=== PATIENT | male | born 1970 | race Caucasian/White ===

== ENCOUNTER → 2016-11-13 | Outpatient (CLI) | payer OTHER ==
[~2016-11-13] MED LIST: CRS/10 PO; CYCL10TA6 PO; HYDR-4079 PO; IBUP1CAP9 PO; OXYC1TAB3 PO; PHEN-712 PO; TIZA4CAP PO; TYLOTC500 PO
--- NOTE | 2016-11-14 06:38 | PAP/PSG TECHNICIAN REPORT ---
[facility] Underwriting Manager Polysomnogram Report Study name: None Report date: 11/14/2016 Study date: 11/13/2016 Referring Physician: KORY HALL PA-C Name: CHILANGO SCHULER Interpreting Physician: Etienne Arciniega D.O. Date of : 1970 Underwriting Manager: Aaron Caro [facility]. Sex: Male Age: 45 StudyType: PSG Weight: 339 lbs Height: 45 years, Height 6' 4" BMI: 41.26 Medications: CRESTOR 10 MG Patient History PATIENT HAD A SLEEP STUDY DONE MANY YEARS AGO BUT SAID HE WAS NOT POSITIVE AT THAT TIME. HE DOES HAVE HISTORY OF FATIGUE AND SNORING. ALSO, HISTORY OF WEIGHT GAIN. HE IS HERE TODAY FOR AN EVALUATION OF CARMEN. ESS = 14 RM 8 Parameters Monitored NPSG: E1-M2, E2-M1, Fp1-M2, Fp2-M1, F3-M2, F4-M2, F4-M1, C3-M2, C4-M2, C4-M1, O1-M2, O2-M2, O2-M1, T3-M2, T4-M1, P3-M2, P4-M1, CHIN1, CHIN2, HR, EKG, Legs, PFLOW, SNOR, FLOW, CFLOW, Tidal Volume, THOR, ABDO, SpO2, PLTH, CPRESS, ETCO2 Wave, ETCO2, pH Sleep Architecture Sleep Stages Time at Lights Off 9:59:58 PM STAGES Time (min.) TST (%) Time at Lights On 5:28:28 AM Wake 208.0 -- Total Recording Time (TRT) 449.00 min. N1 13.0 5 Total Sleep Period (TSP) 269.5 min. N2 139.5 58 Total Sleep Time (TST) 240.5min. N3 55.0 23 Awake Time 208.0 min. REM 33.0 14 Wake after Sleep Onset 29.0 min. Sleep Efficiency (SE) 54 % Sleep Onset Latency (MICHEL) 179.0 min. Number of Stage 1 Shifts None Awakenings 14 Stage Changes 61 Number of REM periods 6 REM 33.0 14 REM Latency 106.5 min. NREM 207.5 86 Body Position Analysis Supine Right Left Side Prone Vertical Total Sleep Time (min.) 235.8 35.0 147.2 182.23 0.0 0.0 Total Sleep Time (%) 24% 15% 61% 76 0% N/A% Total Sleep Time REM (min.) 0.0 0.0 33.0 None 0.0 0.0 Total Sleep Time NREM (min.) 58.3 35.0 114.2 None 0.0 0.0 Intermittent Wake (min.) 177.6 9.0 21.4 None 0.0 0.0 Total Sleep Period (%) 24% None None None None None Arousals Myoclonus (PLM) * Events Count Index Events Count Index Spontaneous 23 6 Events Awake (PLMW) 13 3.8 Respiratory 19 4.7 Events Asleep w/ Arousal (PLMA) 23 5.7 PLM 23 6 Events Asleep w/o Arousal (PLMS) 78 19.5 Snoring 9 2 Total Asleep 101 25.2 Total 74 18 Total 114 15 Respiratory Analysis * CA OA MA CH H RERA Total Count 0 0 0 0 43 7 43 Index 0.0 0.0 0.0 0 10.7 2 12.5 Mean Duration 0.0 0.0 0.0 0.00 24.1 16.5 23.0 Longest Duration 0.0 0.0 0.0 0.00 0.0 22.5 54.9 Respiratory Event Summary Total Supine ~Supine Right Left Prone REM NREM Apneas Count 0 0 0 0 0 N/A 0 0 Index 0.0 0 0 0.0 0.0 N/A 0 0 Hypopneas (4% Desat) Count 43 16 27 2 25 N/A 15 28 Index 10.7 16.5 9 3.4 10.2 N/A 27.3 8.1 Apneas & All Hypopneas Count 43 16 27 2 25 N/A 15 28 Index 10.7 16 9 3 10 N/A 27.3 8.1 Respiratory Events (Quality Control Representative+All Hyp+RERA) Count 43 22 28 3 25 N/A 15 28 Index 12.5 23 9 5.1 10.2 N/A 27.3 10.1 Respiratory Related Arousal Count 19 22 6 2 4 N/A 1 18 Index 4.7 13 2 3 2 N/A 2 5 Snoring Analysis Supine Right Left Prone REM NREM Total Snore duration 19.3 min Snores count 277 173 616 N/A 17 1,049 1,066 Snore mean duration 1.1 Sec Snores index 285 297 251 N/A 30.9 303.3 265.9 TST with snoring (%) 8.0% Desaturation Event Summary: Minimum %SpO2 Event Count Mean/Min/Max Duration(sec.) Desaturation Index % Time In Bed > 90 37 31.4 / 9.0 / 75.8 5.4 93.4 86 - 90 2 35.8 / 13.5 / 58.1 4.5 6.1 81 - 85 0 N/A 0.0 0.5 76 - 80 1 25.3 / 25.3 / 25.3 351.2 0.0 71 - 75 0 N/A 0.0 0.0 66 - 70 0 N/A 0.0 0.0 61 - 65 0 N/A 0.0 0.0 56 - 60 0 N/A 0.0 0.0 51 - 55 0 N/A 0.0 0.0 < 50 0 N/A 0.0 0.0 Total REM NREM Awake <50% 0.0 min. 0.0 min. 0.0 min. 0.0 min. 51 - 60% 0.0 min. 0.0 min. 0.0 min. 0.0 min. 61 - 70% 0.0 min. 0.0 min. 0.0 min. 0.0 min. 71 - 80% 0.2 min. 0.0 min. 0.2 min. 0.0 min. 81 - 90% 28.6 min. 9.8 min. 16.4 min. 2.4 min. 91 - 100% 407.7 min. 23.2 min. 187.4 min. 197.1 min. Average 93 92 93 95 Minimum SpO2 80 85 80 88 Desaturation Event Index 5.5 27.3 7.5 0.0 # Desat. Events below 89% 11 9 2 N/A Time(%) with Saturation below 89% 2.6 0.8 1.7 0.1 Time(min.) with Saturation below 89% 11.3 3.4 7.5 0.4 Time (mins) REM (mins) NREM (mins) % of TST SpO2 Below 90% 22 14 N8 7.6 SpO2 Below 88% 8 0 0 3 Heart Rate Analysis Min (bpm) Max (bpm) Average (bpm) Awake 58 112 89 NREM 51 94 71 REM 58 84 68 Overall 51 94 71 Supplemental O2 Values Minimum O2 level: None Value Start Time End Time Underwriting Manager Comments Mr. Schuler slept in the right, left and supine positions. No cardiac arrhythmia noted. Leg movements noted. No bruxism noted. Snoring was noted and scored as a 4 on a scale of 1 through 5. (0=no snoring, 5=snoring loud enough to be heard through a closed door or down the [address]) Mr. Schuler awoke to use the restroom 1 time during the night. Mr. Schuler stated I did not sleep as well as I do when I am in my own bed. The final report will be interpreted and signed by a sleep physician. The completed physician report will then be placed in the patient medical record. Therapy (cm H2O) 0 TIB (min.) 448.5 TST (min.) 240.5 Sleep Onset (min.) 179.0 REM Onset From Sleep (min.) 106.5 Sleep Efficiency % 54 Wakefulness (%) 46 Wakefulness (min.) 208.0 NREM 1 (%) 5 NREM 1 (min.) 13.0 NREM 2 (%) 58 NREM 2 (min.) 139.5 NREM 3 (%) 23 NREM 3 (min.) 55.0 REM (%) 14 REM (min.) 33.0 # Arousals 74 Arousal Index 18 # Snore 1,066 Snore Index 265.9 AHI 10.7 AHI Supine 16 AHI Non-Supine 9 NREM AHI 8.1 REM AHI 27.3 RDI 12.5 # Obstructive Apnea 0 # Central Apnea 0 # Mixed Apnea 0 # Hypopneas 43 RERAs 7 Total Respiratory Events 51 Time Below SpO2 89% (min.) 10.9 Mean NREM SpO2 (%) 93 Mean REM SpO2 (%) 92 Mean Sleep SpO2 (%) 93 Min NREM SpO2 (%) 80 Min REM SpO2 (%) 85 Position Supine (min.) 235.8 Position Non-supine (min.) 182.2 LM Index Sleep 25.2 LM Index NREM 27.2 LM Index REM 12.7 Mean Heart Rate (bpm) 71 Min Heart Rate (bpm) 51
--- NOTE | 2016-11-16 07:59 | POLYSOMNOGRAPH REPORT ---
REFERRED BY: Irma Michelle PA-C, who is with [facility] in [place]. CLINICAL DATA: The patient is a 45-year-old male with a BMI elevated at 41.26. He is referred by Irma Michelle PA-C. He has complaints of snoring, disturbed nocturnal sleep, fatigue, and excessive daytime somnolence. The [place] sleepiness score was 14 out of a possible 24. He previously had a sleep study done elsewhere which was reportedly negative. It is unknown how long ago that study was. This is an in-lab diagnostic polysomnography. SLEEP ARCHITECTURE: The total sleep period was 269.5 minutes. The total sleep time was 240.5 minutes. The sleep efficiency was severely reduced to 54%. This was mainly related to a severely prolonged sleep onset latency of 179.0 minutes. REM latency was 106.5 minutes. Wake after sleep onset was 29 minutes. Sleep consisted of stage N1 5%, stage N2 58%, stage N3 23%, stage REM 14%. AROUSAL DATA: The patient had a total of 74 arousals including 23 spontaneous arousals, 19 respiratory arousals, 23 periodic limb movement arousals, and 9 snoring arousals. The arousal index was 18 events per hour. PLM DATA: The patient had a total of 101 periodic limb movements of sleep for a PLM index of 25.2. There were 23 arousals associated with limb movements for a PLM arousal index of 5.7. EKG: The underlying cardiac rhythm was normal sinus. The cardiac rates ranged from 51-94 beats per minute with an average of 71 beats per minute. No cardiac arrhythmia was noted. RESPIRATORY DATA: The patient had a total of 43 respiratory events, all of which were hypopneas. The hypopneas were scored by the 4% desaturation rule. There were no apneas. The apnea hypopnea index was mildly elevated at 10.7 events per hour. This would reflect mild sleep apnea. He also had 7 RERAs. OXIMETRY DATA: The average saturation was 93%. The minimum saturation was 80%. There was a total of 8 minutes with saturations less than 88%. HOT DIE PICKER'S HOT DIE PICKER COMMENTS: The patient slept in the right, left, and supine positions. Leg movements were noted. Snoring was noted and scored as a 4 on a scale of 1 through 5. The patient awakened to use the restroom one time during the night. IMPRESSION: 1. Obstructive sleep apnea -- mild. 2. Periodic limb movement disorder. COMMENTS: The patient had severe difficulty initiating sleep. It took him almost 3 hours to fall asleep. He had mild sleep apnea as assessed by an apnea hypopnea index of 10.7. All the events were hypopneas. It is difficult to determine if his complaints of excessive daytime somnolence and fatigue are secondary to the mild sleep apnea or not. He did have some relatively transient oxygen desaturations. He had a modest number of limb movements. RECOMMENDATIONS: 1. Consideration could be given to a trial of nasal CPAP. This could be done by ordering auto CPAP. Alternatively, he could be referred back for an in-lab CPAP titration study. In light of the fact he had such difficulty initiating sleep while in the sleep lab, the auto CPAP might be the preferred approach. 2. The patient has an elevation of body mass index of 41.26. In light of this a weight-reduction program is strongly advised. 3. The patient should be advised to avoid sleeping in the supine position. Typically one has more snoring and respiratory events in the supine position. 4. The patient should be advised of the appropriate principles of sleep hygiene with particular emphasis on allowing sufficient sleep time of approximately 8 hours per night and having a fairly regular sleep-wake schedule. ALYSSAD
== END ==
LOC: C.NEUR 21:00
PROVIDERS: ATTEND Family Medicine
DX: R06.83 Snoring (principal); G47.20 Circadian rhythm sleep disorder, unspecified type; E66.01 Morbid (severe) obesity due to excess calories

== ENCOUNTER 2016-11-17 16:53 | Emergency (ER) | payer OTHER ==
[~2016-11-17] VITALS: Ht 190.5 cm; Wt 154.0 kg
[~2016-11-17 16:53] MED LIST changes: -CRS/10 PO; -CYCL10TA6 PO; -OXYC1TAB3 PO; -PHEN-712 PO
[2016-11-17 16:58] VITALS: Ht 190.5 cm; Wt 154.0 kg
[2016-11-17] MEDS ORDERED: OXYCODONE HCL IR 5 MG TAB (IMMEDIATE RELEASE) PO STA (17:48)
[2016-11-17] MEDS ORDERED: CRS/10 PO (18:16)
[2016-11-17] MEDS ORDERED: PHEN-712 PO (18:17)
--- NOTE | 2016-11-17 19:21 | DIAGNOSTIC IMAGING REPORT ---
PELVIS 1 OR 2 VIEW ROUTINE CLINICAL HISTORY: RIGHT hip pain. Fall. COMPARISON STUDY: Pelvis 03/06/2015. FINDINGS: Cortical plates and screws within the left acetabulum. The hardware appears intact. No acute fracture or dislocation within the pelvis or hips. There is moderate to severe right and mild to moderate left hip osteoarthritis. The sacrum appears intact. IMPRESSION: 1. No acute fracture or dislocation within the pelvis or hips. 2. Right greater than left hip osteoarthritis. Electronically signed by: Isai Adorno M.D. 11/17/2016 7:20 PM Dictated Date/Time: 11/17/2016 7:19 PM
--- NOTE | 2016-11-17 19:24 | DIAGNOSTIC IMAGING REPORT ---
LEFT FEMUR 2 VIEWS ROUTINE, RIGHT FEMUR 2 VIEWS ROUTINE CLINICAL HISTORY: pain s/p fall. Bilateral leg pain. COMPARISON STUDY: None. FINDINGS: Cortical plate and screws within the left acetabulum. The hardware appears intact. Moderate to severe right and easq-wd-lkpujjsf left hip osteoarthritis. Soft tissues are unremarkable. No acute fracture dislocation within the right femur. Small focal area of cortical thickening within the mid shaft of the left femur medially. IMPRESSION: 1. No acute fracture or dislocation within the right femur. 2. Small focal area of cortical thickening within the mid shaft of the left femur medially. This may be related to chronic traction from a muscle attachment. A developing stress fracture could also have a similar appearance if the patient has had long-standing left femur pain. This can be confirmed with follow-up nonemergent left femur MRI. Electronically signed by: Isai Adorno M.D. 11/17/2016 7:23 PM Dictated Date/Time: 11/17/2016 7:20 PM
--- NOTE | 2016-11-17 19:24 | DIAGNOSTIC IMAGING REPORT ---
LEFT FEMUR 2 VIEWS ROUTINE, RIGHT FEMUR 2 VIEWS ROUTINE CLINICAL HISTORY: pain s/p fall. Bilateral leg pain. COMPARISON STUDY: None. FINDINGS: Cortical plate and screws within the left acetabulum. The hardware appears intact. Moderate to severe right and igte-jr-adtjuuoj left hip osteoarthritis. Soft tissues are unremarkable. No acute fracture dislocation within the right femur. Small focal area of cortical thickening within the mid shaft of the left femur medially. IMPRESSION: 1. No acute fracture or dislocation within the right femur. 2. Small focal area of cortical thickening within the mid shaft of the left femur medially. This may be related to chronic traction from a muscle attachment. A developing stress fracture could also have a similar appearance if the patient has had long-standing left femur pain. This can be confirmed with follow-up nonemergent left femur MRI. Electronically signed by: Isai Adorno M.D. 11/17/2016 7:23 PM Dictated Date/Time: 11/17/2016 7:20 PM
--- NOTE | 2016-11-17 19:26 | DIAGNOSTIC IMAGING REPORT ---
LUMBAR SPINE 5 VIEWS HISTORY: Back pain. Fall. tailbone pain COMPARISON: Lumbar spine 11/12/2015. FINDINGS: There is no fracture. Mild disc space at L5-S1. Alignment is intact. Bilateral L5 spondylolysis is again noted. IMPRESSION: No fracture or subluxation within the lumbar spine. Electronically signed by: Isai Adorno M.D. 11/17/2016 7:25 PM Dictated Date/Time: 11/17/2016 7:23 PM
[2016-11-17] MEDS ORDERED: FLEXERIL HOME PACK 10 MG VIAL PO ONE (19:45)
[2016-11-17] MEDS ORDERED: OXYCODONE IR HOME PACK PO ONE (19:45)
[2016-11-17] MEDS ORDERED: OXYC1TAB3 PO (19:52)
[2016-11-17] MEDS ORDERED: CYCL10TA6 PO (19:52)
--- NOTE | 2016-11-17 19:54 | EMERGENCY ROOM VISIT NOTE ---
History First contact with patient: 17:36 Chief Complaint: BACK PAIN Stated Complaint: TAILBONE AND LOWER BACK PAIN History of Present Illness The patient is a 46 year old male who presents to the Emergency Department by private vehicle for evaluation of his ongoing tailbone pain. The patient reports that on Monday morning well going outside, he slipped and fell in the snow. He is uncertain how he landed. He did not lose consciousness. The patient reports that he immediately did not have pain, but has now developed increasing pain in his tailbone area. He reports pain with changes in position. He rates his current discomfort as an 8/10. The patient denies any numbness or tingling into the distal extremity's. He denies any loss of control bowel/bladder saddle anesthesia. The patient does have a history of disc issues and his back and cervical spine. He had an MRI performed in October and is waiting for surgical consultation through [facility]. He reports no worsening radicular symptoms at this point. The patient has tried over-the- counter medications with minimally symptoms. He denies any fevers, chills, abdominal pain, acute, melena, hematuria, or dysuria. Patient does report a history of osteoarthritis of the RIGHT hip and surgical intervention for an acetabular fracture to the LEFT hip. Review of Systems A complete 10-point Review of Systems was discussed with the patient, with pertinent positives and negatives listed in the History of Present Illness. All remaining Review of Systems questions can be considered negative unless otherwise specified. Past Medical/Surgical History Medical Problems: (1) Bursitis Nec (2) Fx Phalanx, Hand Nos-Opn (3) Pin placement in L middle finger Family History Diabetes mellitus FHx: cancer FHx: gallbladder disease FHx: heart disease Hypertension Social History Smoking Status: Current Every Day Smoker Smokeless Tobacco Use: No Alcohol Use: heavy Drug Use: none Marital Status: Housing Status: lives with family Occupation Status: employed Current/Historical Medications Scheduled Cyclobenzaprine Hcl (Flexeril), 10 MG PO TID Rosuvastatin Calcium (Crestor), 10 MG PO QAM Scheduled PRN Acetaminophen (Tylenol), 1,500 MG PO for Pain or Fever Oxycodone Ir (Roxicodone Ir), 1-2 TAB PO Q4H PRN for Pain Psuzrwavxxykb-Qo-IQ W/ APAP (Cold & Flu Severe Daytime 5-72-249-325 mg), 1 TAB PO DIRECTED PRN for Cough Allergies Coded Allergies: No Known Allergies (Unverified , 11/17/16) Physical Exam Vital Signs Date Time Temp Pulse Resp B/P Pulse Ox O2 Delivery O2 Flow Rate FiO2 11/17/16 20:00 37.2 88 18 138/102 97 11/17/16 19:39 88 18 138/102 97 Room Air 11/17/16 16:58 37.2 96 18 150/84 97 Room Air Pain Rating (0-10): 8 Physical Exam VITAL SIGNS - Vital signs and nursing notes were reviewed. GENERAL - 46-year-old male appearing his stated age and in noticeable discomfort throughout the exam. ABDOMEN - Abdominal contour obese without pulsations or visible masses. BS normoactive all four quadrants. No tenderness, palpable masses, hepatosplenomegaly, or ascites noted. MUSCULOSKELETAL - ROM of the lumbar spine region was limited secondary to patient discomfort. Pt was seated on the exam table. Pt made guarded movements when asked to change position. No step-off deformities were palpated down the thoracolumbar spines. Moderate Tenderness to Palpation experienced at the level of the lower lumbar spine and paraspinal muscle distribution. No reproducible tenderness to palpation across the iliac spine. NEUROLOGIC - REFLEXES: +3/4 patellar reflexes B/L. SENSORY: Spinothalamic tract was found to be intact with ability to discriminate sharp versus dull sensation at the level of hip joint down do the great toe. No sensory defects of the dorsal column were appreciated utilizing light touch for evaluation. CEREBELLAR: Pt to perform rapid alternating movements of the feet. EXTREMITIES - Range of Motion - No tremors, ticks, or fasciculations of the lower extremities noticed during inspection. FROM of the lower extremities. No clonus noted with PROM of the lower extremities bilaterally. Pt had +5/5 strength appreciated bilaterally in the lower extremities against examiner's resistance. VASCULAR - Capillary refill of the great toe was brisk. No mottling or blanching of the extremities present. +3/5 dorsalis pedis pulses palpated bilaterally. Medical Decision & Procedures ER Provider Diagnostic Interpretation: Radiological imaging and reports were reviewed by myself. Radiologist's Interpretation as follows: LEFT FEMUR 2 VIEWS ROUTINE, RIGHT FEMUR 2 VIEWS ROUTINE CLINICAL HISTORY: pain s/p fall. Bilateral leg pain. COMPARISON STUDY: None. FINDINGS: Cortical plate and screws within the left acetabulum. The hardware appears intact. Moderate to severe right and opvx-ui-fqnbivmd left hip osteoarthritis. Soft tissues are unremarkable. No acute fracture dislocation within the right femur. Small focal area of cortical thickening within the mid shaft of the left femur medially. IMPRESSION: 1. No acute fracture or dislocation within the right femur. 2. Small focal area of cortical thickening within the mid shaft of the left femur medially. This may be related to chronic traction from a muscle attachment. A developing stress fracture could also have a similar appearance if the patient has had long-standing left femur pain. This can be confirmed with follow-up nonemergent left femur MRI. LUMBAR SPINE 5 VIEWS HISTORY: Back pain. Fall. tailbone pain COMPARISON: Lumbar spine 11/12/2015. FINDINGS: There is no fracture. Mild disc space at L5-S1. Alignment is intact. Bilateral L5 spondylolysis is again noted. IMPRESSION: No fracture or subluxation within the lumbar spine. PELVIS 1 OR 2 VIEW ROUTINE CLINICAL HISTORY: RIGHT hip pain. Fall. COMPARISON STUDY: Pelvis 03/06/2015. FINDINGS: Cortical plates and screws within the left acetabulum. The hardware appears intact. No acute fracture or dislocation within the pelvis or hips. There is moderate to severe right and mild to moderate left hip osteoarthritis. The sacrum appears intact. IMPRESSION: 1. No acute fracture or dislocation within the pelvis or hips. 2. Right greater than left hip osteoarthritis. Medications Administered Medications (Trade) Dose Ordered Sig/Anshul Route Start Time Stop Time Status Last Admin Dose Admin Oxycodone HCl (Roxicodone Immediate Rel Tab) 5 mg NOW STAT PO 11/17/16 17:48 11/17/16 17:50 DC 11/17/16 18:13 5 MG Oxycodone HCl (Roxicodone Immediate Rel 5MG Home Pack) 1 homepack UD ONCE PO 11/17/16 19:45 11/17/16 19:46 DC 11/17/16 19:59 1 HOMEPACK Cyclobenzaprine HCl (FLEXERIL 10MG Home Pack) 1 homepack UD ONCE PO 11/17/16 19:45 11/17/16 19:46 DC 11/17/16 19:59 1 HOMEPACK ED Course Patient was seen and evaluated by myself. The patient was provided one OxyIR for pain. X-ray of the lumbar spines, pelvis, and femurs were obtained. Imaging results as above. Imaging results were reviewed with the patient who acknowledges understanding. The patient was educated on following up with his surgeons from today's visit. He was educated on worrisome symptoms for return visit to the emergency department. Patient discharged home in good condition. Medical Decision Given the patient's presentation and exam findings, I did elect to perform the above-mentioned workup. The patient presents today with tailbone pain and low back pain after sustaining a fall on the ice. He has no radicular symptoms. He has strong reflexes bilaterally. His exam is otherwise unremarkable. His pain was adequately controlled in the emergency department. The patient will follow-up with his specialists from today's visit. He will return for any changing or worsening symptoms. Patient discharged home in good condition. In the evaluation and treatment of this patient the following differential diagnoses were considered: Cauda equina syndrome, discitis, HNP, sciatica, epidural abscess, psoas abscess, musculoskeletal strain, lumbar fracture, lumbar dislocation, lumbar subluxation, spondylolisthesis, spondylosis, or compression fracture. Impression Primary Impression: Lumbar contusion Additional Impression: Fall due to ice or snow Departure Information Dispostion Home / Self-Care Condition GOOD Prescriptions Cyclobenzaprine Hcl (FLEXERIL) 10 Mg Tab 10 MG PO TID for 7 Days, #21 TAB Prov: Zia Chance PA-C 11/17/16 Oxycodone Ir (Roxicodone Ir) 5 Mg Tab 1-2 TAB PO Q4H Y for Pain, #20 TAB For Initial Treatment Prov: Zia Chance PA-C 11/17/16 Referrals Irma Reyes PA-C (PCP) Patient Instructions [facility] Additional Instructions You have been treated in the Emergency Department for Back Pain. You have received pain medicine in the emergency department which impairs your ability to operate a vehicle. It is illegal for you to drive after receiving these medicines. You have been prescribed OxyIR to be used for pain control. This is a narcotic medication. You cannot drive or consume alcohol while on this medicine. This medicine should only be used for pain that cannot be controlled with over-the- counter pain medicines. You have been prescribed Flexeril (cyclobenzaprine) 1-2 tabs orally, three times per day. Do NOT exceed 30 mg (6 tabs) per day. Take your first dose at bedtime as it can make you drowsy. Always take all medications as prescribed. For pain control, you can use the following shhr-ccp-bgrmdwb medicines (if >12 yo): - Regular strength (325mg/tab) Tylenol (acetaminophen) 2 tabs every 4-6 hours as needed. Do not exceed 12 tablets in a 24 hour period. Avoid taking more than 4 grams (4000 mg) of Tylenol per day. This includes any other sources of acetaminophen you may take on a regular basis. - Regular strength (200 mg/tab) Advil (ibuprofen) 1-2 tabs every 4-6 hours as needed. Do not exceed a dose of 3200 mg per day. If this is an acute injury, ice can be applied to the area of pain for the first 3 days to help decrease pain and inflammation. After the first 3 days, a heating pad can be used over the area for continued soothing relief. You should schedule a follow-up appointment in 2-3 days with your Primary Care Provider for further evaluation and treatment of your back pain. Return to the Emergency Department if your current symptoms worsen despite treatment course outlined above, or if you develop any of the following symptoms : intractable pain despite aforementioned treatment course, loss of control of your bowel or bladder, numbness or tingling in your groin, or development of a fever. Problem Qualifiers Primary Impression: Lumbar contusion Encounter type: initial encounter Qualified Codes: S30.0XXA - Contusion of lower back and pelvis, initial encounter Additional Impression: Fall due to ice or snow Encounter type: initial encounter Qualified Codes: W00.9XXA - Unspecified fall due to ice and snow, initial encounter
[2016-11-17 20:00] VITALS: BP 138/102; PULSE 88; TEMP 37.2; O2SAT 97
== END 2016-11-17 20:01 | disposition home or self-care (01) ==
LOC: C.EDB 16:54 → C.EDC 20:01
DX: S30.0XXA Contusion of lower back and pelvis, initial encounter (principal); W00.9XXA Unspecified fall due to ice and snow, initial encounter; F17.200 Nicotine dependence, unspecified, uncomplicated

== ENCOUNTER → 2017-12-06 | Outpatient (CLI) | payer OTHER ==
[~2017-12-06] MED LIST changes: +CRS/10 PO; -HYDR-4079 PO; -IBUP1CAP9 PO; +PHEN-712 PO; -TIZA4CAP PO
--- NOTE | 2017-12-06 14:23 | DIAGNOSTIC IMAGING REPORT ---
LUMBAR SPINE 7 VIEWS with flexion and extension HISTORY: LOWER BACK PAIN COMPARISON: Lumbar spine 11/17/2016. FINDINGS: There is no fracture. Mild dextroscoliosis. The sacrum is intact. Postoperative changes at the left acetabulum. Bilateral L5 spondylolysis with associated grade I spondylolisthesis. Mild disc space narrowing at L1-L2 and L2-L3 with endplate osteophytes. Moderate to space narrowing at L5-S1. 5 mm of anterolisthesis of L5 on S1. Moderate facet degenerative changes within the lower lumbar spine. The alignment remains unchanged throughout flexion and extension. IMPRESSION: 1. No fractures within the lumbar spine. 2. Gguo-ry-xgyvprhn degenerative changes as described above. This is not significantly changed. 3. Bilateral L5 spondylolysis with associated grade I anterolisthesis. Alignment remains unchanged throughout flexion and extension. Electronically signed by: Isai Adorno M.D. 12/06/2017 2:21 PM Dictated Date/Time: 12/06/2017 2:00 PM
== END | disposition home or self-care (01) ==
LOC: C.RAD 12:30
PROVIDERS: ATTEND Nurse Practitioner Family
DX: M47.26 Other spondylosis with radiculopathy, lumbar region (principal); M43.16 Spondylolisthesis, lumbar region

== ENCOUNTER 2019-01-01 04:52 | Inpatient (IN) ==
--- NOTE | 2018-12-05 08:26 | Anesthesiology Consultation ---
Date of Service December 05, 2018 Assessment & Plan (1) Encounter for pre-operative examination: Chart Review Chart Review: Acceptable Risk for Surgery and Patient seen in Pre Admission Testing Teaching & Discussion Instructed NPO after midnight before surgery, except medications with 15 cc of water. Medication instructions provided according to the PAT guidelines. History Surgery Operation Date: 01/01/19 10:40 Proposed Procedures p Right Total Hip Arthroplasty - Jaycob Bruce MD Height/Weight Height: 6 ft 4 in Weight: 155.2 kg Allergies Allergy/AdvReac Type Severity Reaction Status Date / Time No Known Allergies Allergy Unverified 11/30/18 08:02 Medications Home Medications Medication Instructions Recorded Confirmed Last Taken acetaminophen [Tylenol Extra 1 - 2 tab PO Q6H PRN 11/30/18 11/30/18 Unknown Strength] baclofen 20 mg PO BID 11/30/18 11/30/18 11/29/18 meloxicam 7.5 mg PO BID 11/30/18 11/30/18 11/29/18 pregabalin [Lyrica] 100 mg PO TID 11/30/18 11/30/18 11/29/18 ropinirole [Requip] 2 mg PO HS 11/30/18 11/30/18 11/29/18 rosuvastatin [Crestor] 20 mg PO HS 11/30/18 11/30/18 11/29/18 Past Medical History Medical History Acid reflux DIETARY CONTROLLED Degenerative disc disease High cholesterol Morbid obesity Osteoarthritis Restless leg syndrome Sleep apnea Noncompliant with CPAP Past Family History Family History Father Family history of non-Hodgkin's lymphoma Sister Family history of ovarian cancer Other Family history of testicular cancer Past Surgical History Surgical History History of hand surgery L/MIDDLE/3 PINS History of hip surgery L/PLATE & SCREWS History of testicular surgery A CHILD Past Anesthesia History No Hx of Anesthesia Complications and No Family Hx of Anesthesia Complications History of PONV No Motion Sickness Screening History of Motion Sickness: No Social History Smoking Status: Current every day smoker tobacco type: cigarettes Smoking cigarettes per day: 1-2 CIGS A DAY, TRYING TO QUIT - ADVISED NPO Do You Dip or Chew Tobacco: Yes (1-2 CHEWS A DAY - ADVISED NPO) Hx Alcohol Use: Yes Alcohol type: hard liquor alcohol intake frequency: a few times a week Hx Substance Use: No substance use type: does not use Exercise / Class Metabolic Activity III < 4 Walking/Shop/Light housework (Very limited by hip pain for the past month, SOB with ambulation 25+ feet 2/2 pain, no chest pain.) Review of Systems Pt denies any recent chest pain, shortness of breath, palpitations, cough, fever or URI. Physical Exam Vital Signs BP: 115/80 P: 76bpm SPO2: 95% RA T: 98.1 F R: 18 ENMT Mouth: no dental restorations, no chipped teeth and no loose teeth Thyromental Distance: > or= 3.5 Finger Breadths (3.5) Mallampati Class: III Mouth / Teeth: 1. missing Neck + thick neck and + facial hair (short goatee and stubble, pt amenable to shaving); neck extension not limited Respiratory normal respiratory effort Auscultation: lungs clear to auscultation bilaterally Cardiovascular Rate/Rhythm: regular rate and regular rhythm Heart Sounds: no murmur Extremities: no edema Testing Electrocardiogram Date: 12/05/18 Findings: + NSR @ (66) Chest X-Ray Date: 12/05/18 Findings: + NAD Laboratory Results 12/05/18 08:39 12/05/18 08:39 Blood Type A Positive 12/05/18 08:39 Antibody Screen NEGATIVE 12/05/18 08:39 PT 10.6 Seconds (9.0-12.0) 12/05/18 08:39 INR 1.0 (0.9-1.1) 12/05/18 08:39 APTT 28.8 Seconds (21.0-31.0) 12/05/18 08:39
--- NOTE | 2018-12-05 08:34 | PAT Medication Instructions ---
Medication Instructions Date of Service December 05, 2018 Home Medications acetaminophen [Tylenol Extra] 1 - 2 tab PO Q6H PRN baclofen 20 mg PO BID meloxicam 7.5 mg PO BID pregabalin [Lyrica] 100 mg PO TID ropinirole [Requip] 2 mg PO HS rosuvastatin [Crestor] 20 mg PO HS ASK your surgeon for instructions meloxicam 7.5 mg PO BID STOP taking 24 hours before surgery ropinirole [Requip] 2 mg PO HS DO NOT take the morning of surgery baclofen 20 mg PO BID Take morning of surgery With a small sip of water, OTHERWISE NOTHING TO EAT OR DRINK AFTER MIDNIGHT: acetaminophen [Tylenol Extra] 1 - 2 tab PO Q6H PRN (if needed, may be taken up to four hours before surgery) pregabalin [Lyrica] 100 mg PO TID Take evening before surgery acetaminophen [Tylenol Extra] 1 - 2 tab PO Q6H PRN (if needed) baclofen 20 mg PO BID pregabalin [Lyrica] 100 mg PO TID rosuvastatin [Crestor] 20 mg PO HS Other Notes If you have any questions please call us at [phone] or [phone] or [phone] or [phone]
--- NOTE | 2018-12-05 09:05 | XRay Report ---
TWO VIEW CHEST CLINICAL HISTORY: Preoperative examination. FINDINGS: PA and lateral chest radiographs are compared to chest x-ray and chest CT dated 03/06/2015. T he cardiomediastinal silhouette is unremarkable. The lungs and pleural spaces are clear. There is no pneumothorax. There are healed left-sided rib fractures. IMPRESSION: No active disease in the chest. Electronically signed by: Ender Leon M.D. 12/05/2018 9:04 AM
[2018-12-05 10:29] LABS: Basophils # (auto) 0.01 K/uL (0-0.2); Basophils % (auto) 0.2 %; Eosinophils % (auto) 1.8 %; Hematocrit (blood only) 45.3 % (42-52); Hemoglobin 15.8 g/dL (14.0-18.0); Immature Granulocytes # (auto) 0.01 K/uL (0.00-0.02); Immature Granulocytes % (auto) 0.2 %; Lymphocytes % (auto) 33.6 %; Mean Corpuscular Hgb Conc 34.9 g/dL (32-36); Mean Corpuscular Volume 89.5 fL (80-100); Mean Platelet Volume 10.1 fL (7.4-10.4); Monocytes # (auto) 0.47 K/uL (0.11-0.59); Monocytes % (auto) 8.3 %; Neutrophils # (auto) 3.16 K/uL (1.4-6.5); Neutrophils % (auto) 55.9 %; Platelet Count 177 K/uL (130-400); RDW Coefficient of Variation 13.6 % (11.5-14.5); RDW Standard Deviation 44.2 fL (36.4-46.3); Red Blood Count 5.06 M/uL (4.7-6.1); White Blood Count 5.65 K/uL (4.8-10.8)
[2018-12-05 10:41] LABS: Partial Thromboplastin Ratio 1.1; Partial Thromboplastin Time 28.8 Seconds (21.0-31.0); Prothrombin Time 10.6 Seconds (9.0-12.0)
[2018-12-05 10:45] LABS: BUN Creatinine Ratio 10.8 (10-20); Calcium 8.9 mg/dl (8.5-10.1); Creatinine Clr Calc Pharmacy 148.8 ml/min; Est GFR (African American) 105.2; Est GFR (Non-African American) 90.8; Potassium 4.1 mmol/L (3.5-5.1)
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
--- OUTSIDE RECORDS SUMMARY | 2019-01-01 04:55 | External Medical Summary | Continuity of Care Document ---
:1970 Author Name Inge Cameron, Provider Address Unavailable Unavailable , Care Team Providers Name Role Phone [facility] Nisha, Provider Unavailable [email or web address], UNKNOWN Unavailable Unavailable Problems Active medical history not documented Allergies and Adverse Reactions Allergy history not documented Medications Medications not documented Procedures Procedures not documented Immunizations Immunizations not documented Plan of Treatment Planned Observations Planned Goals not documented Results No Known Results Results not documented
[2019-01-01] MEDS ORDERED: CEFAZOLIN 3000MG 65 ML IV SCH (06:00)
[2019-01-01] MEDS ORDERED: LR 60ML/HR IV SCH (06:00)
[2019-01-01] MEDS ORDERED: FAMOTIDINE 20 MG TAB PO SCH (06:00)
[2019-01-01] MEDS ORDERED: LR 500ML BOLUS, THEN 15ML/HR IV SCH (06:00)
[2019-01-01] MEDS ORDERED: METOCLOPRAMIDE HCL 10 MG TABLET PO SCH (06:00)
[2019-01-01] MEDS ORDERED: GABAPENTIN 300 MG x 3 PO SCH (06:00)
[2019-01-01] MEDS ORDERED: SCOPOLAMINE 1.5 MG TDSY TD SCH (06:00)
[2019-01-01] MEDS ORDERED: TRANEXAMIC ACID 1,000 MG **IV Pre-op IV SCH (06:00)
[2019-01-01] MEDS ORDERED: ACETAMINOPHEN 500 MG TAB PO SCH (06:00)
[2019-01-01] MEDS ORDERED: BACITRACIN INJ 50,000 UNIT VIAL ONE (06:33)
[2019-01-01] MEDS ORDERED: BUPIVACAINE/EPINEPHRINE 0.5% MPF 1:200,000 30 ML VIAL ONE (06:33)
[2019-01-01] MEDS ORDERED: BUPIVACAINE 0.5 % 5 MG/1 ML PF 10ML VIAL ONE (06:36)
[2019-01-01] MEDS ORDERED: MIDAZOLAM HCL 1 MG/ML 2ML VIAL ONE (06:41)
[2019-01-01] MEDS ORDERED: MoRPHine SULFATE PF 1 MG/ML 10 ML AMP/VIAL ONE (06:41)
--- NOTE | 2019-01-01 06:50 | History & Physical Bridge Note ---
Date of Service January 01, 2019 History & Physical Bridge Note I have examined the patient, reviewed the History & Physical and in the interval since the performance of the History & Physical I have noted the following changes of clinical significance: no changes noted
[2019-01-01] MEDS ORDERED: NALOXONE HCL 1 MG in SODIUM CHLORIDE 0.9% 1000ML 1,000 ML IV PRN (06:52)
[2019-01-01] MEDS ORDERED: LACTATED RINGER'S 500 ML IV PRN (06:52)
[2019-01-01] MEDS ORDERED: DiphenhydrAMINE HCL 50 MG/ML VIAL IV PRN (06:52)
[2019-01-01] MEDS ORDERED: ePHEDrine sulfate 50 MG/ML AMP IV PRN (06:52)
[2019-01-01] MEDS ORDERED: NALOXONE HCL 0.4 MG/1 ML VIAL/CARP IV PRN ×2 (06:52→09:51)
[2019-01-01] MEDS ORDERED: HYDROmorphone INJ 0.5 MG/0.5 ML SYR IV PRN (06:52)
[2019-01-01] MEDS ORDERED: NALBUPHINE HCL INJ 10 MG/ML AMP IV PRN (06:52)
[2019-01-01] MEDS ORDERED: MoRPHine SULFATE 2 MG/ML CARP IV PRN (06:52)
[2019-01-01] MEDS ORDERED: MoRPHine SULFATE PF 1 MG/ML 10 ML AMP/VIAL INT SPINAL ONE (06:52)
[2019-01-01] MEDS ORDERED: ONDANSETRON INJ 2 MG/ML 2 ML VIAL IV PRN (06:52)
[2019-01-01] MEDS ORDERED: NALOXONE HCL 0.08 MG in SYRINGE 1.8 ML IV PRN (06:52)
[2019-01-01] MEDS ORDERED: DC INTRASPINAL MORPHINE SCH (07:00)
[2019-01-01] MEDS ORDERED: NO NARCOTICS OR SEDATIVES SCH (07:00)
[2019-01-01] MEDS ORDERED: SODIUM CHLORIDE 0.9% 1000ML 1,000 ML IV SCH (07:00)
[2019-01-01] MEDS ORDERED: PROPOFOL IV EMULSION 10 MG/ML 20 ML VIAL IV ONE (07:55)
[2019-01-01] MEDS ORDERED: LIDOCAINE HCL 2% 2 ML VIAL/AMP(20MG/ML) INFIL ONE (07:55)
--- NOTE | 2019-01-01 08:47 | Post Operative Brief Note ---
Immediate Post Op Note v1 Date of Surgery January 01, 2019 Pre & Post Diagnosis Operation Date: 01/01/19 07:00 Pre-Op Diagnosis: Right Hip Advanced Degenerative Joint Disease Post-Op Diagnosis: Right Hip Advanced Degenerative Joint Disease Procedure Operation Date: 01/01/19 07:00 Actual Procedures p Right Total Arthroplasty--Uncemented(Right) - Jaycob Bruce MD Surgeon Jaycob Bruce MD Gericare Aide Teacher Lemuel, PAC Estimated Blood Loss 300 Findings Consistent with Post-Op Diagnosis Fluids 1700 cc Specimens Right Femoral Head Drains Madrigal Catheter (A 16 Lithuanian madrigal catheter was inserted by ENEDINA Rowland, without difficulty, clear yellow urine obtained, output to be monitored by A nesthesia.) Anesthesia Type Spinal MAC Complications none Disposition Accompanied Patient To Recovery: Yes Disposition: Recovery Room
--- NOTE | 2019-01-01 09:20 | Anesthesiology Progress Note ---
Date of Service January 01, 2019 Anesthesia Post Procedure Vital Signs Vital Signs: Temp Pulse Pulse Resp BP Pulse Ox 01/01/19 09:15 36.0 C L 67 16 112/61 99 01/01/19 09:05 65 17 103/73 99 01/01/19 08:55 61 19 110/62 99 01/01/19 08:49 36.0 C L 74 14 98/59 L 97 01/01/19 05:35 36.5 C 61 20 127/76 95 Pain Intensity Right Hip: Pain Intensity: 7 Transfer of Care Handoff Completed per policy Notes Mental Status: alert / awake / arousable Patient Amnestic to Procedure: Yes Nausea / Vomiting: adequately controlled Pain: adequately controlled Airway Patency, RR, SpO2: stable & adequate BP & HR: stable & adequate Hydration State: stable & adequate Neuraxial Anesthesia: was administered and sensory block is resolving Anesthetic Complications: no major complications apparent and Pt Satisfied with anesthetic care
--- NOTE | 2019-01-01 09:45 | XRay Report ---
XR hip 1V RT w pelvis HISTORY: 48 years-old Male IN PACU - A/P PELVIS and LATERAL HIP right hip total joint arthroplasty COMPARISON: Pelvis and right hip radiographs 11/15/2018 TECHNIQUE: AP view of the pelvis with 2 views of the right hip FINDINGS: ] Total joint arthroplasty demonstrates satisfactory alignment. No acute fracture or retained foreign body identified. Lateral skin abdulkadir with expected postsurgical soft tissue swelling and deep tissu e air. Remote ORIF changes about the left hemipelvis. IMPRESSION: Right hip total joint arthroplasty demonstrates satisfactory alignment. The above report was generated using voice recognition software. It may contain grammatical, syntax o r spelling errors. Electronically signed by: Zachary Juarez M.D. 01/01/2019 9:44 AM
[2019-01-01] MEDS ORDERED: ALUMINUM/MAGNESIUM SUSP 30 ML UDC PO PRN (09:51)
[2019-01-01] MEDS ORDERED: MAGNESIUM HYDROXIDE SUSP 30 ML UDC PO PRN (09:51)
[2019-01-01] MEDS ORDERED: TAMSULOSIN HCL 0.4 MG CAP PO PRN (09:51)
[2019-01-01] MEDS ORDERED: BISACODYL 10 MG SUPP PR PRN (09:51)
[2019-01-01] MEDS: SODIUM CHLORIDE 0.9% 1000ML 1,000 ML IV SCH ×3 (10:21→23:38)
--- NOTE | 2019-01-01 10:27 | Operative Report ---
DATE OF OPERATION: 01/01/2019 SURGEON: Jaycob Bruce MD LOG PREPARER: ENEDINA Wolfe PREOPERATIVE DIAGNOSIS: Right hip degenerative joint disease. POSTOPERATIVE DIAGNOSIS: Right hip degenerative joint disease. PROCEDURE PERFORMED: Right uncemented ceramic on highly cross-linked polyethylene total hip arthroplasty. COMPLICATIONS: None. ESTIMATED BLOOD LOSS: 300 mL. FLUID REPLACEMENT: 1700 mL crystalloid fluid replacement. ANESTHESIA: Spinal. DRAINS: None. SPECIMENS: Right femoral head sent for pathology. 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 He has been through extensive and conservative treatment which became less successful over time. It was starting to really limit his ability to maintain his job and occupation. X-rays showed advanced hip DJD. He elected to proceed with total hip arthroplasty. OPERATIVE FINDINGS: Operative findings revealed advanced right hip DJD. Extensive grade 4 changes in the femoral head and acetabulum. He had a very long femoral neck with a lot of offset. Moderate size joint effusion. Moderate to large soft tissue envelope. Moderate osteophytes around the acetabulum particularly anteriorly. OPERATIVE IMPLANTS: Operative implants consisted of: 1. A Biomet G7 size 56 mm acetabular shell. 2. An apex hole eliminator. 3. 6.5 cancellous acetabular screws, 1 at 35 mm in length and 1 at 30 mm in length. 4. A highly cross-linked polyethylene liner with 56 mm outer diameter and 36 mm inner diameter. 5. A DePuy Corail size 12 KLA femoral stem. 6. A +12/36 mm ceramic articular ball. OPERATIVE PROCEDURE: The patient was taken to the operating room, identified and placed on the operating table in supine position. All contact areas were appropriately padded. IV antibiotics were provided by anesthesia team. A spinal anesthetic had been implemented in the holding area. Shea catheter was placed in a sterile fashion. The patient was then placed in the left lateral decubitus position. An axillary roll was placed. Stlberg hip positioner was used for positioning. Right hip and leg were then prepped and draped in the usual sterile fashion. A posterolateral approach to the right hip was then performed through a curvilinear incision centered over the greater trochanter. Sharp dissection was carried through the subcutaneous tissues down to the level of the IT band and gluteal fascia. The IT band and gluteal fascia were incised longitudinally in line with skin incision. The underlying greater trochanteric bursa was excised. The piriformis and external rotators and the posterior capsule were then released from the posterior aspect of the hip joint as a single layer. Great care was taken throughout the procedure to protect the sciatic nerve at all times. Hip was internally rotated and dislocated. Femoral neck osteotomy cut was made with the final cut about 12 mm above the lesser trochanter. Femoral head was removed and sent for pathology. The femur was retracted anteriorly. Attention was then drawn to the acetabulum. The acetabular labrum was excised. The pulvinar fat was excised. Sequential reaming of the acetabulum was then performed beginning with a size 49 and progressing up to a 55. A 56-mm Biomet G7 acetabular shell was then placed in about 40 degrees of lateral opening and 20 degrees of anteversion. It was fixed with two 6.5 cancellous acetabular screws. The anterior osteophyte was removed. A trial liner was placed. Attention was then drawn to the femur. The proximal femur was entered with a cookie cutter followed by canal finder. I then broached beginning with a size 8 and progressing up to a 12. We got excellent fit at 12. I then trialed the hip. He had a lot of offset, so the hip was stable, but the soft tissue tension was lax. Leg lengths seemed most appropriate and soft tissue tension seemed most appropriate with a +12 head. The hip was fully stable in full extension and external rotation and flexion to 90 degrees, internal rotation to over [address] I elected to place these implants. All trial implants were removed. An apex hole eliminator was placed. Highly cross-linked polyethylene liner was placed. A DePuy Corail size 12 KLA femoral stem was impacted in position. A +12/36 mm ceramic articular ball was placed. Hip was located and once again found to be stable. Attention was then drawn toward closing. The wound was irrigated with copious amounts of pulsatile lavage solution. I did inject locally with 60 mL of 0.5% Marcaine with epinephrine. The posterior capsule and external rotators were repaired through drill holes in the posterior greater trochanter as a single layer with #2 Ti-Cron suture. The IT band and gluteal fascia were then closed with #1 PDS suture in a running fashion. The subcutaneous tissues were then closed with 2 layers with a deep layer in #2 Vicryl suture in a buried interrupted fashion, the subcutaneous tissue with 2-0 Dexon suture in a buried interrupted fashion. The skin was closed with skin abdulkadir. Leg was then cleaned and dried and a sterile dressing of Xeroform, 4 x 4's, sterile ABD pad and foam tape was applied. The patient was then transferred to the recovery room in stable condition. The patient tolerated the procedure well with no complications. All needle and sponge counts were correct at the end of the operation. I attest to the content of the Intraoperative Record and any orders documented therein. Any exception s are noted below.
[2019-01-01] MEDS: MULTIVITAMIN TAB PO SCH (12:49)
[2019-01-01] MEDS: DOCUSATE SODIUM 100 MG CAP PO SCH ×2 (12:49→21:03)
[2019-01-01] MEDS: ASPIRIN 81 MG ECTAB PO SCH ×2 (12:50→21:03)
[2019-01-01] MEDS: CEFAZOLIN 2000MG 2,000 MG/15 ML SYR IV SCH ×2 (13:14→22:05)
[2019-01-01] MEDS: ACETAMINOPHEN 500 MG TAB PO SCH ×2 (13:14→22:05)
--- NOTE | 2019-01-01 13:29 | Progress Note ---
DATE: 01/01/2019 SUBJECTIVE: A 48-year-old gentleman postop from a right hip replacement. He is doing well. Not having any pain yet. No chest pain or shortness of breath. Not feeling dizzy or lightheaded. OBJECTIVE: VITAL SIGNS: Temperature 36.5. Vital signs stable. GENERAL: Physical examination reveals a pleasant, middle-aged male. He is sitting up in his bed and talking to his . He looks comfortable. He is eating lunch. LUNGS: Clear to auscultation. HEART: Has regular rate and rhythm. ABDOMEN: Soft, nontender, nondistended. EXTREMITIES: Grossly neurovascularly intact except as follows: Examination of the right lower extremity reveals the leg lengths to be equal. Hip is located. Dressing is clean, dry and intact. Thigh is soft and supple. He is neurologically intact. He can dorsiflex and plantarflex his foot appropriately. X-RAYS: X-ray of the right hip from recovery room were reviewed. He has right uncemented total hip arthroplasty. Components are in good position. No signs of problems. ASSESSMENT: A 48-year-old gentleman postop from a right hip replacement, doing well. Hip is located. He is neurologically intact. Pain is controlled. PLAN: 1. DVT prophylaxis including thigh-high TEDs, SCDs, and aspirin twice a day. 2. PT/OT. Weight bear as tolerated. Right total hip protocol. 3. Pain control, doing well with current pain regimen. 4. IV antibiotics x24 hours. 5. Disposition: He is planning to be discharged to home likely with some home health once adequately recovered.
[2019-01-01] MEDS ORDERED: TRANEXAMIC ACID 1,000 MG in 0.9 % SODIUM CHLORIDE 100 ML IV SCH (15:00)
[2019-01-01] MEDS: CHECK SCOPOLAMINE PATCH PLACEMENT SCH ×2 (16:55→23:39)
[2019-01-01] MEDS: KETOROLAC 30 MG/ML VIAL IV SCH ×2 (18:16→23:38)
[2019-01-01] MEDS: FERROUS GLUCONATE 324 MG TAB PO SCH (18:17)
[2019-01-01] MEDS: ASCORBIC ACID 500 MG TAB PO SCH (18:17)
[2019-01-01] MEDS: ROSUVASTATIN CALCIUM 20 MG TAB PO SCH (21:03)
[2019-01-01] MEDS: ROPINIROLE HCL 1 MG TABLET PO SCH (21:03)
[2019-01-01] MEDS: SENNA 8.6 MG TAB PO SCH (21:03)
[2019-01-02] MEDS ORDERED: ONDANSETRON INJ 2 MG/ML 2 ML VIAL IV PRN (00:52)
[2019-01-02] MEDS ORDERED: METOCLOPRAMIDE HCL INJ 5 MG/ML 2 ML VIAL IV PRN (00:52)
[2019-01-02] MEDS ORDERED: HYDROmorphone INJ 0.5 MG/0.5 ML SYR IV PRN (00:52)
[2019-01-02] MEDS: KETOROLAC 30 MG/ML VIAL IV SCH ×4 (05:28→23:47)
[2019-01-02] MEDS: ACETAMINOPHEN 500 MG TAB PO SCH ×3 (05:28→22:05)
[2019-01-02 05:48] LABS: Basophils # (auto) 0.01 K/uL (0-0.2); Basophils % (auto) 0.2 %; Eosinophils # (auto) 0.12 K/uL (0-0.5); Hematocrit (blood only) 34.1 % (42-52); Hemoglobin 11.7 g/dL (14.0-18.0); Immature Granulocytes # (auto) 0.01 K/uL (0.00-0.02); Immature Granulocytes % (auto) 0.2 %; Lymphocytes # (auto) 1.67 K/uL (1.2-3.4); Lymphocytes % (auto) 27.4 %; Mean Corpuscular Hgb Conc 34.3 g/dL (32-36); Mean Corpuscular Volume 90.2 fL (80-100); Mean Platelet Volume 9.7 fL (7.4-10.4); Monocytes # (auto) 0.66 K/uL (0.11-0.59); Monocytes % (auto) 10.8 %; Neutrophils # (auto) 3.62 K/uL (1.4-6.5); Neutrophils % (auto) 59.4 %; Platelet Count 132 K/uL (130-400); RDW Coefficient of Variation 13.4 % (11.5-14.5); RDW Standard Deviation 43.7 fL (36.4-46.3); Red Blood Count 3.78 M/uL (4.7-6.1); White Blood Count 6.09 K/uL (4.8-10.8)
[2019-01-02] MEDS ORDERED: KETOROLAC 30 MG/ML VIAL IV SCH (06:00)
[2019-01-02 06:21] LABS: BUN Creatinine Ratio 15.9 (10-20); Calcium 7.9 mg/dl (8.5-10.1); Creatinine Clr Calc Pharmacy 169.9 ml/min; Est GFR (African American) 118.8; Est GFR (Non-African American) 102.5; Potassium 4.1 mmol/L (3.5-5.1)
[2019-01-02] MEDS: ASPIRIN 81 MG ECTAB PO SCH ×2 (08:15→22:03)
[2019-01-02] MEDS: DOCUSATE SODIUM 100 MG CAP PO SCH ×2 (08:15→22:02)
[2019-01-02] MEDS: FERROUS GLUCONATE 324 MG TAB PO SCH ×2 (08:15→16:18)
[2019-01-02] MEDS: ASCORBIC ACID 500 MG TAB PO SCH ×2 (08:15→16:19)
[2019-01-02] MEDS: PREGABALIN 100 MG CAP PO SCH ×3 (08:16→22:08)
[2019-01-02] MEDS: TAPENTADOL HCL ER 50 MG TABCR PO SCH ×2 (08:16→22:08)
[2019-01-02] MEDS: BACLOFEN 20 MG TAB PO SCH ×2 (08:16→22:03)
[2019-01-02] MEDS: MULTIVITAMIN TAB PO SCH (08:16)
--- NOTE | 2019-01-02 09:58 | Progress Note ---
DATE: 01/02/2019 SUBJECTIVE: A 48-year-old gentleman postop day 1 from right hip replacement. He is doing pretty well. Just describes soreness in his hip. Pain is controlled. No chest pain or shortness of breath. Not feeling dizzy or lightheaded. OBJECTIVE: VITAL SIGNS: Temperature 36.6. Vital signs stable. GENERAL: Reveals a pleasant, middle-aged male. He is sitting up in bed, looks pretty comfortable. EXTREMITIES: Examination of the right hip reveals leg lengths to be equal. Dressing is clean, dry and intact. Thigh is soft and supple. Hip is located. He can dorsiflex and plantarflex his foot appropriately. LABORATORY DATA: Hemoglobin 11.7. Hematocrit 34.1. Electrolytes are stable. ASSESSMENT: A 48-year-old gentleman postop day 1 from a right hip replacement, doing well. His pain is controlled. Hip is located. He is neurologically intact. Slightly anemic, but without symptoms. PLAN: 1. DVT prophylaxis include thigh-high TEDs, SCDs, and aspirin twice a day. 2. PT/OT. Weight bear as tolerated. Right total hip protocol. 3. Pain control, doing pretty well with current pain regimen. 4. Anemia. Mildly anemic. H and P is asymptomatic. Continue iron supplementation. 5. Disposition: Plan to discharge to home with home health once adequately recovered.
[2019-01-02] MEDS: OXYCODONE HCL IR 5 MG TAB (IMMEDIATE RELEASE) PO PRN ×2 (11:10→16:17)
[2019-01-02] MEDS: SENNA 8.6 MG TAB PO SCH (22:02)
[2019-01-02] MEDS: ROSUVASTATIN CALCIUM 20 MG TAB PO SCH (22:02)
[2019-01-02] MEDS: ROPINIROLE HCL 1 MG TABLET PO SCH (22:05)
[2019-01-03] MEDS: ACETAMINOPHEN 500 MG TAB PO SCH (06:24)
[2019-01-03] MEDS: KETOROLAC 30 MG/ML VIAL IV SCH (06:24)
[2019-01-03] MEDS: MULTIVITAMIN TAB PO SCH (07:45)
[2019-01-03] MEDS: PREGABALIN 100 MG CAP PO SCH (07:45)
[2019-01-03] MEDS: ASCORBIC ACID 500 MG TAB PO SCH (07:45)
[2019-01-03] MEDS: TAPENTADOL HCL ER 50 MG TABCR PO SCH (07:45)
[2019-01-03] MEDS: BACLOFEN 20 MG TAB PO SCH (07:45)
[2019-01-03] MEDS: ASPIRIN 81 MG ECTAB PO SCH (07:45)
[2019-01-03] MEDS: FERROUS GLUCONATE 324 MG TAB PO SCH (07:45)
[2019-01-03] MEDS: DOCUSATE SODIUM 100 MG CAP PO SCH (07:45)
--- NOTE | 2019-01-03 08:24 | Progress Note ---
DATE: 01/03/2019 SUBJECTIVE: A 48-year-old gentleman postop day 2 from right hip replacement. He is doing pretty well. Pain is controlled. Denies any chest pain or shortness of breath. Not feeling dizzy or lightheaded. OBJECTIVE: VITAL SIGNS: Temperature 36.9. Vital signs stable. GENERAL: Physical examination shows a pleasant, middle-aged male. He is sitting up in his bed and looks pretty comfortable this morning. EXTREMITIES: Examination of the right leg reveals the dressing to be clean, dry and intact. Leg lengths were equal. Hip is located. Thigh is soft and supple. He is neurologically intact. ASSESSMENT: A 48-year-old gentleman postop day 2 from right hip replacement, doing pretty well. Pain is controlled. Hip is located. He is neurologically intact. PLAN: 1. DVT prophylaxis including thigh-high TEDs, SCDs, and aspirin twice a day. 2. PT/OT. Weight bear as tolerated. Right total hip protocol. 3. Pain control. Doing well with current pain regimen. 4. Disposition: Plan to discharge to home after therapy today.
--- NOTE | 2019-01-08 18:08 | Discharge Summary ---
ADMITTING PHYSICIAN AND SURGEON: Dr. Jaycob Bruce. ADMITTING DIAGNOSIS: Right hip degenerative joint disease. SURGERY PERFORMED: Right total hip arthroplasty. SECONDARY DIAGNOSES: Elevated cholesterol, sleep apnea, back pain, neck pain, gastroesophageal reflux disease, obesity. CONSULTS: None obtained. HISTORY AND PHYSICAL EXAMINATION: Well documented in the patient's chart. HOSPITAL COURSE: The patient was admitted on 01/01/2019 underwent total hip arthroplasty, tolerated the procedure well. There were no complications. He was transferred to the PACU postoperatively and later to the orthopedic for further care. He was given Ancef for antibiotic prophylaxis, LAIS stockings, SCDs and aspirin for DVT prophylaxis. Hemoglobin, hematocrit and vital signs were monitored during his hospital stay and remained stable, did not require any blood transfusions. There were no complications. By postoperative day 2, he was tolerating a regular diet, pain was controlled with oral pain medicine. He was participating in physical therapy. Postop day 2, he was discharged home, set up with home health services, given printed discharge instructions including new prescriptions for extra strength Tylenol, aspirin, and oxycodone. Continue his home medicines. Continue physical therapy, weightbearing as tolerated, ALIS stockings, total hip precautions. Follow up 2 weeks postoperatively or sooner if there are any problems or concerns.
== END 2019-01-03 10:24 | disposition home health service (06) | DRG 470 ==
LOC: ASU 04:52 → 3E 08:52

== ENCOUNTER 2019-07-01 22:44 | Inpatient (IN) ==
[2019-07-02 00:11] LABS: Basophils # (auto) 0.02 K/uL (0-0.2); Basophils % (auto) 0.2 %; Eosinophils # (auto) 0.11 K/uL (0-0.5); Eosinophils % (auto) 1.2 %; Hematocrit (blood only) 39.5 % (42-52); Immature Granulocytes # (auto) 0.02 K/uL (0.00-0.02); Immature Granulocytes % (auto) 0.2 %; Lymphocytes # (auto) 2.79 K/uL (1.2-3.4); Lymphocytes % (auto) 31.6 %; Mean Corpuscular Hemoglobin 31.4 pg (25-34); Mean Corpuscular Hgb Conc 35.4 g/dL (32-36); Mean Corpuscular Volume 88.6 fL (80-100); Mean Platelet Volume 9.4 fL (7.4-10.4); Monocytes # (auto) 0.68 K/uL (0.11-0.59); Monocytes % (auto) 7.7 %; Neutrophils # (auto) 5.22 K/uL (1.4-6.5); Neutrophils % (auto) 59.1 %; Platelet Count 187 K/uL (130-400); RDW Coefficient of Variation 13.5 % (11.5-14.5); RDW Standard Deviation 43.6 fL (36.4-46.3); Red Blood Count 4.46 M/uL (4.7-6.1); White Blood Count 8.84 K/uL (4.8-10.8)
[2019-07-02 00:24] LABS: Chloride 107 mmol/L (98-107); Potassium 3.4 mmol/L (3.5-5.1); Sodium 141 mmol/L (136-145)
[2019-07-02 00:28] LABS: Alanine Aminotransferase 32 U/L (12-78); Albumin Level 3.8 gm/dl (3.4-5.0); Aspartate Aminotransferase 19 U/L (15-37); BUN Creatinine Ratio 14.7 (10-20); Blood Urea Nitrogen 14 mg/dl (7-18); Calcium 8.8 mg/dl (8.5-10.1); Carbon Dioxide 27 mmol/L (21-32); Creatinine Clr Calc Pharmacy 152.5 ml/min; Est GFR (African American) 109.3; Est GFR (Non-African American) 94.3; Glucose 115 mg/dl (70-99)
[2019-07-02 00:31] LABS: Albumin Globulin Ratio 1.2 (0.9-2); Alkaline Phosphatase 95 U/L (45-117); Bilirubin,Total 0.5 mg/dl (0.2-1); C Reactive Protein < 0.29 mg/dl (0-0.29); Globulin 3.3 gm/dl (2.5-4.0); Total Protein 7.1 gm/dl (6.4-8.2)
[2019-07-02] MEDS ORDERED: cefTRIAXone SODIUM 2,000 MG/70 ML BAG IV STA (01:16)
[2019-07-02] MEDS ORDERED: VANCOMYCIN HCL 1,000 MG/270 ML BAG IV STA (01:16)
[2019-07-02] MEDS ORDERED: VANCOMYCIN CONSULT ACTIVE PRN (01:16)
[2019-07-02 02:06] LABS: Uric Acid 6.4 mg/dl (2.6-7.2)
[2019-07-02] MEDS ORDERED: MAGNESIUM HYDROXIDE SUSP 30 ML UDC PO PRN (03:29)
[2019-07-02] MEDS ORDERED: ACETAMINOPHEN 325 MG TAB PO PRN (03:29)
[2019-07-02] MEDS ORDERED: ONDANSETRON INJ 2 MG/ML 2 ML VIAL IV PRN (03:29)
[2019-07-02] MEDS ORDERED: ALUMINUM/MAGNESIUM SUSP 30 ML UDC PO PRN (03:29)
[2019-07-02] MEDS ORDERED: VANCOMYCIN HCL 1,750 MG in SODIUM CHLORIDE 0.9% 500 ML IV SCH (04:00)
--- NOTE | 2019-07-02 05:54 | History & Physical Report ---
Date of Service July 02, 2019 Assessment & Plan (1) Acute osteomyelitis of toe: Destructive changes around right first metatarsal phalangeal joint- differential including osteomyelitis, septic arthritis, neuropathic joint and advanced post traumatic arthritis. Continue vancomycin and ceftriaxone IV empirically begun in the ED. Order uric acid level. order lower extremity arterial Doppler. Order CT of right foot now, may need MRI later. Consult Dr. Bruce from orthopedics. Present on Admission?: Yes (2) Peripheral neuropathy: Continue pregabalin 100 mg p.o. 3 times daily, baclofen 20 mg p.o. twice d aily and meloxicam 7.5 mg p.o. twice daily. Order B12 and folate level. Patient does have well water, and if not tested for heavy metal poisoning, should consider doing so. Present on Admission?: Yes (3) Hyperlipidemia: Continue rosuvastatin 20 mg at bedtime Present on Admission?: Yes (4) Restless leg syndrome: Continue ropinirole 2 mg at bedtime Present on Admission?: Yes (5) Morbid obesity with BMI of 40.0-44.9, adult: Noted as potential contributor to neuropathic joint Present on Admission?: Yes History of Present Illness Chief Complaint: The patient presents to the emergency department with complaint of worsening swelling of right lower extremity, reporting his right great toe looked balloon like. Primary Care Provider: Gumaro Chan The patient is a 48-year-old male who presents to the emergency department with the above complaints. He does not not experience much pain, as he has been known to have a neuropathy from undetermined causes at this time. He did have studies ordered by his PCP in [place] on 06/23/2019, with x-ray of right foot showing destructive changes and bony fragmentation involving the first metatarsophalangeal joint with diagnostic considerations including osteomyelitis, septic arthritis, neuropathic joint and as well as an atypical appearance of advanced posttraumatic arthritis. The patient also had a venous Doppler performed at same date that was negative for DVT in right lower extremity. The patient was started on vancomycin IV and ceftriaxone IV by the ED for presumptive osteo-. Allergies Allergy/AdvReac Type Severity Reaction Status Date / Time No Known Allergies Allergy Unverified 07/01/19 23:34 Home Medications Home Medications Medication Instructions Recorded Confirmed Type acetaminophen [Tylenol Extra 500 - 1,000 mg PO Q6H PRN 11/30/18 07/01/19 History Strength] baclofen 20 mg PO BID 11/30/18 07/01/19 History meloxicam 7.5 mg PO BID 11/30/18 07/01/19 History pregabalin [Lyrica] 100 mg PO TID 11/30/18 07/01/19 History rosuvastatin [Crestor] 20 mg PO HS 11/30/18 07/01/19 History ropinirole 2 mg PO HS 07/01/19 07/01/19 History Past Med/Surg History Medical History Encounter for pre-operative examination Left acetabular fracture (Acute) Lung contusion (Acute) Acid reflux DIETARY CONTROLLED Degenerative disc disease High cholesterol Morbid obesity Osteoarthritis Restless leg syndrome Sleep apnea Noncompliant with CPAP Surgical History History of right hip replacement History of hand surgery L/MIDDLE/3 PINS History of hip surgery L/PLATE & SCREWS History of testicular surgery A CHILD Social History Preferred Language: Lithuanian Communication Ability: Effective 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 Beliefs That Will Affect Care: None marital status: Current Living Situation: Family Current Living Situation Comment: , son, 2 daughters, 3 grandchildren Other Information That Helps Us Care for You: No Feels Safe at Home: Yes Safety Concerns: Feels Safe At This Time Smoking Status: Current every day smoker Tobacco Type: cigarettes and smokeless tobacco ; Cigarettes Per Day: 1-2 CIGS A DAY, TRYING TO QUIT - ADVISED NPO ; Do You Dip or Chew Tobacco: Yes ; Second Hand Exposure: No ; Tobacco Cessation Education Requested by Patient: No Hx Alcohol Use: Yes Alcohol type: beer Hx Substance Use: No Review of Systems Review of Systems: The patient denies chest pain, palpitations, shortness of breath, dyspnea on exertion, cough, sore throat, fevers, chills, sweats, weight change, fatigue, nausea, vomiting, diarrhea , constipation, abdominal pain, pelvic pain, blood in urine or stool, dysuria, urinary frequency or urgency, lightheadedness, dizziness, headache, memory loss, loss of consciousness, abnormal bruising or bleeding, focal or generalized weakness, numbness or tingling in arms, generalized arthralgias or myalgias, back or neck pain, or night sweats. The review of systems is otherwise negative other than for that already noted above, and at least 10 systems have been reviewed. Physical Exam Physical Exam: The patient is awake, alert and oriented 3, well developed and well nourished, normocephalic and atraumatic, lying in bed and in no acute distress. HEENT--PERRL, EOMI, mucous membranes and oropharynx normal. Neck--supple. No JVD. No bruits. Thyroid normal, trachea midline, no adenopathy. Heart--normal S1 and S2. No murmurs, rubs or gallops. Lungs--clear bilaterally, no respiratory distress, no accessory muscle use. Abdomen--normal bowel sounds and soft. Nontender. Nondistended. Morbidly obese Extremities--left lower extremity normal examination. Right lower extremity with 3+ pitting pretibial and pedal edema. Mild erythema around great toe and dorsum of right foot. Decreased distal pulses b/l. Dermatologic--normal skin turgor, normal color, no abnormal lymph nodes, no rash. Neurologic--cranial nerves II through XII grossly intact. Rheumatologic--limited due to right lower extremity Psychiatric--normal affect. Results & Data Vital Signs (Past 12 Hours) Vital Signs Temp Pulse Pulse Resp BP BP Pulse Ox 07/02/19 03:05 97.9 F 70 18 144/90 H 96 07/02/19 02:53 80 20 150/90 H 99 07/02/19 02:00 71 19 152/105 H 07/02/19 01:00 76 17 128/65 99 07/02/19 00:00 81 19 121/50 L 99 07/01/19 23:39 85 18 123/84 99 07/01/19 22:47 97.7 F 97 H 20 150/90 H 97 Laboratory Results Laboratory Results WBC 8.84 K/uL (4.8-10.8) 07/01/19 23:17 RBC 4.46 M/uL (4.7-6.1) L 07/01/19 23:17 Hgb 14.0 g/dL (14.0-18.0) 07/01/19 23:17 Hct 39.5 % (42-52) L 07/01/19 23:17 MCV 88.6 fL (80-100) 07/01/19 23:17 MCH 31.4 pg (25-34) 07/01/19 23:17 MCHC 35.4 g/dL (32-36) 07/01/19 23:17 RDW Std Deviation 43.6 fL (36.4-46.3) 07/01/19 23:17 RDW Coeff of Kenny 13.5 % (11.5-14.5) 07/01/19 23:17 Plt Count 187 K/uL (130-400) 07/01/19 23:17 MPV 9.4 fL (7.4-10.4) 07/01/19 23:17 Immature Gran % (Auto) 0.2 % 07/01/19 23:17 Neut % (Auto) 59.1 % 07/01/19 23:17 Lymph % (Auto) 31.6 % 07/01/19 23:17 [place] % (Auto) 7.7 % 07/01/19 23:17 Eos % (Auto) 1.2 % 07/01/19 23:17 Baso % (Auto) 0.2 % 07/01/19 23:17 Immature Gran # (Auto) 0.02 K/uL (0.00-0.02) 07/01/19 23:17 Neut # (Auto) 5.22 K/uL (1.4-6.5) 07/01/19 23:17 Lymph # (Auto) 2.79 K/uL (1.2-3.4) 07/01/19 23:17 [place]ruff # (Auto) 0.68 K/uL (0.11-0.59) H 07/01/19 23:17 Eos # (Auto) 0.11 K/uL (0-0.5) 07/01/19 23:17 Baso # (Auto) 0.02 K/uL (0-0.2) 07/01/19 23:17 ESR 9 mm/hr (0-14) 07/01/19 23:17 Sodium 141 mmol/L (136-145) 07/01/19 23:17 Potassium 3.4 mmol/L (3.5-5.1) L 07/01/19 23:17 Chloride 107 mmol/L (98-107) 07/01/19 23:17 Carbon Dioxide 27 mmol/L (21-32) 07/01/19 23:17 Anion Gap 7.0 (3-11) 07/01/19 23:17 BUN 14 mg/dl (7-18) 07/01/19 23:17 Creatinine 0.95 mg/dl (0.6-1.4) 07/01/19 23:17 Est Cr Clr Drug Dosing 152.5 ml/min 07/01/19 23:17 Est GFR ( Amer) 109.3 07/01/19 23:17 Est GFR (Non-Af Amer) 94.3 07/01/19 23:17 BUN/Creatinine Ratio 14.7 (10-20) 07/01/19 23:17 Glucose 115 mg/dl (70-99) H 07/01/19 23:17 Uric Acid 6.4 mg/dl (2.6-7.2) 07/01/19 23:17 Calcium 8.8 mg/dl (8.5-10.1) 07/01/19 23:17 Total Bilirubin 0.5 mg/dl (0.2-1) 07/01/19 23:17 AST 19 U/L (15-37) 07/01/19 23:17 ALT 32 U/L (12-78) 07/01/19 23:17 Alkaline Phosphatase 95 U/L (45-117) 07/01/19 23:17 C-Reactive Protein < 0.29 mg/dl (0-0.29) 07/01/19 23:17 Total Protein 7.1 gm/dl (6.4-8.2) 07/01/19 23:17 Albumin 3.8 gm/dl (3.4-5.0) 07/01/19 23:17 Globulin 3.3 gm/dl (2.5-4.0) 07/01/19 23:17 Albumin/Globulin Ratio 1.2 (0.9-2) 07/01/19 23:17 Diagnostic Findings [facility], [place] [phone] XRay Report Patient: CHILANGO BERRY AAdmit Date: 07/01/19 MR#: [id number]: [address] Acct ID:[id number]: Date: 1970City Zip: [place] [address] Age: 48Location: Sex: M Room/Bed: Att Phy: Hoa Acuña CRNPDiagnosis: R LE EDEMA Melissa Phy: Gumaro Chan MDService Date: 07/01/19 [facility] Phy:Interpreting Phy: Nick Shelby MD Admit Phy: Ordering Phy: Hoa Acuña CRNP cc: ~ XR foot RT min 3V routine CLINICAL HISTORY: LOWER EXTREMITY EDEMA COMPARISON: None. DISCUSSION: Cortical destructive changes are visualized involving the first metatarsal phalangeal joint. Diagnostic considerations include osteomyelitis/septic arthritis, a neuropathic joint, as well as an atypical appearance of advanced posttraumatic arthritis.. Clinical correlation will be necessary. Orthopedic referral is recommended. There is associated soft tissue edema. IMPRESSION: 1. Destructive changes and bony fragmentation involving the first metatarsal phalangeal joint. Diagnostic considerations include osteomyelitis/septic arthritis, a neuropathic joint, as well as an atypical appearance of advanced posttraumatic arthritis. Orthopedic consultation is recommended in follow-up. Electronically signed by: Nick Shelby M.D. 07/01/2019 7:44 PM Dictated: 07/01/191939 Transcribed: 07/01/191939 [place], [place] [phone] Ultrasound Report Patient: CHILANGO BERRY AAdmit Date: 07/01/19 MR#: [id number]: [address] [facility] Acct ID:[id number]: Date: 1970[facility] Zip: [place] [address] Age: 48Location: Sex: M Room/Bed: Att Phy: Hoa Acuña CRNPDiagnosis: R LE EDEMA Melissa Phy: Gumaro Chan MDService Date: 07/01/19 [facility] Phy:Interpreting Phy: Nick Shelby MD Admit Phy: Ordering Phy: Gumaro Chan MD cc: ~ US venous doppler LE RT CLINICAL HISTORY: Right lower extremity swelling. COMPARISON STUDY: No previous studies for comparison. FINDINGS: Real-time and color flow Doppler imaging were performed. Flow was seen within the femoral, popliteal and calf veins with no intraluminal thrombus demonstrated. The saphenous vein is patent. IMPRESSION: No evidence of right lower extremity DVT. Electronically signed by: Nick Shelby M.D. 07/01/2019 8:36 PM Dictated: 07/01/192034 Transcribed: 07/01/192034 Code Status & VTE Plan Code Status Full code VTE Prophylaxis Plan VTE Prophylaxis will be ordered: Yes PG Care Time/CCT Total # of Minutes Spent Total Time Spent with Patient: Total time spent is greater than 50% in coordination of care (as documented) at patient's floor/unit and/or counseling patient: (1) Acute osteomyelitis of toe Laterality: right Qualified Code(s): M86.171 - Other acute osteomyelitis, right ankle and foot
--- NOTE | 2019-07-02 06:24 | Emergency Department Note ---
Entered by Ben Avendaño acting as a scribe for Shameka So DO History of Present Illness General Chief complaint: Infection Stated complaint: INFECTION Time Seen by Provider: 07/01/19 22:59 Source: patient History of Present Illness Onset (ago): month(s) 2 Location: right (big toe) Pain Consistency: + other (waxing and waning) Quality: + other (swelling) Associated symptoms: + other (Positive for a cough, headache, right calf swelling, and right toe pain. Negative for CP, abdominal pain, nausea, vomtiing, diarrhea, constipation, and rashes.) The patient is a 48 year old male who presents to the emergency department with complaints of waxing and waning right toe swelling beginning 2 months ago. The patient states that he had a right hip replacement 6 months ago. He notes that he started to develop right big toe swelling 2 months ago. He reports that he went to his PCP today and had an X-ray and US of his toe, and he states that he was diagnosed with a right big toe infection. He notes that he has numbness in his feet normally, so he denies any right toe pain. He reports that his infection has looked worse than it currently does. The patient states that he nguyen s noticed some swelling going up to his right cook. He also complains of a cough and headache. He denies any CP, abdominal pain, nausea, vomiting, diarrhea, constipation, and rashes. He notes that he also has a history of disc degeneration, but he denies any history of diabetes and hypertension. He reports that he smokes cigarettes. Home Medications Home Medications Medication Instructions Recorded Confirmed Type acetaminophen [Tylenol Extra 500 - 1,000 mg PO Q6H PRN 11/30/18 07/01/19 History Strength] baclofen 20 mg PO BID 11/30/18 07/01/19 History meloxicam 7.5 mg PO BID 11/30/18 07/01/19 History pregabalin [Lyrica] 100 mg PO TID 11/30/18 07/01/19 History rosuvastatin [Crestor] 20 mg PO HS 11/30/18 07/01/19 History ropinirole 2 mg PO HS 07/01/19 07/01/19 History ketorolac 10 mg PO Q6H PRN 5 Days #20 tab 07/02/19 Rx Allergies Allergy/AdvReac Type Severity Reaction Status Date / Time No Known Allergies Allergy Unverified 07/01/19 23:34 Past Med/Surg History Medical History Encounter for pre-operative examination Left acetabular fracture (Acute) Lung contusion (Acute) Acid reflux DIETARY CONTROLLED Degenerative disc disease High cholesterol Morbid obesity Osteoarthritis Restless leg syndrome Sleep apnea Noncompliant with CPAP Surgical History History of hand surgery L/MIDDLE/3 PINS History of hip surgery L/PLATE & SCREWS History of right hip replacement History of testicular surgery A CHILD Social History Preferred Language: Luxembourger Communication Ability: Effective 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 and A total of 10 systems reviewed and were otherwise negative Physical Exam Vital Signs Vital Signs - 24 hr 07/01/19 22:47 07/01/19 23:39 07/02/19 00:00 Temperature 36.5 C Temperature Source Oral Sepsis Action Taken by Nursing No Action Required Pulse Rate 97 H 85 81 Pulse Rate from SpO2 Sensor 84 80 Respiratory Rate 20 18 19 Respiratory Effort / Characteristics Non-Labored Spontaneous Respiratory Depth Normal Blood Pressure 150/90 H 123/84 121/50 L Blood Pressure Mean 110 97 73 Pulse Oximetry 97 99 99 Oxygen Delivery Method Room Air 07/02/19 01:00 07/02/19 02:00 Temperature Temperature Source Sepsis Action Taken by Nursing Pulse Rate 76 71 Pulse Rate from SpO2 Sensor 74 Respiratory Rate 17 19 Respiratory Effort / Characteristics Respiratory Depth Blood Pressure 128/65 152/105 H Blood Pressure Mean 86 120 Pulse Oximetry 99 Oxygen Delivery Method General: Obese male, in no acute distress. HEENT: Head - normocephalic and atraumatic Pupils are equal, round, and reactive to light. Extraocular eye muscles are intact, and sclera are anicteric. Nose - moist nasal mucosa without discharge. Mouth - moist buccal mucosa. Oropharynx is nonerythematous and there is no tonsillar exudate or edema noted. Neck: Supple; no cervical lymphadenopathy Heart: Regular rate and rhythm. There is a normal S1 and S2 with no murmurs, clicks, or gallops appreciated. Lungs: Clear to auscultation bilaterally with no wheezes, rales, or rhonchi. Abdomen: Soft, completely nontender, nondistended, with good bowel sounds. There are no palpable pulsatile masses or hepatosplenomegaly. There is no guarding, rigidity, or rebound noted. Extremities: No evidence of cyanosis and clubbing. There are easily palpable peripheral pulses. Right great toe is edematous and slightly erythematous with some pretty significant toe fungus, blister on tip of right second toe. Skin: warm and dry with good turgor and no rashes. Course 2300, The medical student saw the patient at this time. 2310: The patient was evaluated in room C4. A complete history and physical exam was performed. An IV lock was initiated and labs were drawn as above. I did review previous ultrasound and x-ray ordered by the PCP. 0038: The medical student reevaluated and updated the patient. 0107: I reevaluated and updated the patient. He is agreeable to admission. 0125: Vancomycin HCl 1000mg in 270 mls @ 125 mls/hr IV, Ceftriaxone Sodium 2000mg in 70 mls @ 140 mls/hr IV 0154: Upon reevaluation, I discussed findings and results with the patient. He verbalized agreement of the treatment plan. I spoke with Dr. Iraheta of the [facility] [place] [facility]. The patient will be evaluated for further management and care. Consultations Consultation #1: I reviewed the patient's case with Dr. Iraheta - Hospitalist, [facility]. He will evaluate the patient for further management. Time: 01:54 Administered Medications Discontinued Medications Baclofen (Lioresal) 20 mg PO BID TAYLA Stop: 08/01/19 08:59 Last Admin: 07/02/19 08:39 Dose: 20 mg Documented by: [id number] Vancomycin HCl (Vancomycin Hcl) 1,000 mg in 270 mls @ 125 mls/hr IV NOW STA Stop: 07/02/19 03:25 Last Infusion: 07/02/19 04:34 Dose: 0 mls/hr Documented by: [id number] Admin: 07/02/19 01:25 Dose: 125 mls/hr Documented by: [id number] Ceftriaxone Sodium (Rocephin) 2,000 mg in 70 mls @ 140 mls/hr IV NOW STA Stop: 07/02/19 01:45 Last Infusion: 07/02/19 01:52 Dose: 0 mls/hr Documented by: [id number] Admin: 07/02/19 01:25 Dose: 140 mls/hr Documented by: [id number] Vancomycin HCl 1,750 mg/ (Sodium Chloride) 535 mls @ 200 mls/hr IV TODAY@0400 TAYLA Stop: 07/02/19 06:41 Last Infusion: 07/02/19 08:15 Dose: 0 mls/hr Documented by: [id number] Admin: 07/02/19 05:21 Dose: 200 mls/hr Documented by: [id number] Vancomycin HCl 1,500 mg/ (Sodium Chloride) 530 mls @ 200 mls/hr IV Q8H [facility]; Protocol Stop: 08/13/19 13:59 Last Infusion: 07/02/19 16:53 Dose: 0 mls/hr Documented by: [id number] Admin: 07/02/19 13:59 Dose: 200 mls/hr Documented by: [id number] Meloxicam (Mobic) 7.5 mg PO BID TAYLA Stop: 08/01/19 08:59 Last Admin: 07/02/19 08:39 Dose: 7.5 mg Documented by: [id number] Pregabalin (Lyrica) 100 mg PO TID TAYLA Stop: 08/01/19 08:59 Last Admin: 07/02/19 13:59 Dose: 100 mg Documented by: [id number] Admin: 07/02/19 08:39 Dose: 100 mg Documented by: [id number] Medical Decision Making Differential Diagnosis Differential diagnoses include: osteoarthritis, osteomyelitis, gout, and septic arthritis. Medical Records Attestation: I reviewed the patient's medical records. Home Medications Current Medication List: was personally reviewed by me Laboratory Data Attestation: I reviewed the patient's lab results. Result diagrams: 07/01/19 23:17 07/01/19 23:17 Lab Results 07/01/19 07/01/19 07/01/19 Range/Units 23:17 23:17 23:17 WBC 8.84 (4.8-10.8) K/uL RBC 4.46 L (4.7-6.1) M/uL Hgb 14.0 (14.0-18.0) g/dL Hct 39.5 L (42-52) % MCV 88.6 (80-100) fL MCH 31.4 (25-34) pg MCHC 35.4 (32-36) g/dL RDW Std Deviation 43.6 (36.4-46.3) fL RDW Coeff of Kenny 13.5 (11.5-14.5) % Plt Count 187 (130-400) K/uL MPV 9.4 (7.4-10.4) fL Immature Gran % (Auto) 0.2 % Neut % (Auto) 59.1 % Lymph % (Auto) 31.6 % [place] % (Auto) 7.7 % Eos % (Auto) 1.2 % Baso % (Auto) 0.2 % Immature Gran # (Auto) 0.02 (0.00-0.02) K/uL Neut # (Auto) 5.22 (1.4-6.5) K/uL Lymph # (Auto) 2.79 (1.2-3.4) K/uL [place] # (Auto) 0.68 H (0.11-0.59) K/uL Eos # (Auto) 0.11 (0-0.5) K/uL Baso # (Auto) 0.02 (0-0.2) K/uL ESR 9 (0-14) mm/hr Sodium 141 (136-145) mmol/L Potassium 3.4 L (3.5-5.1) mmol/L Chloride 107 (98-107) mmol/L Carbon Dioxide 27 (21-32) mmol/L Anion Gap 7.0 (3-11) BUN 14 (7-18) mg/dl Creatinine 0.95 (0.6-1.4) mg/dl Est Cr Clr Drug Dosing 152.5 ml/min Est GFR ( Amer) 109.3 Est GFR (Non-Af Amer) 94.3 BUN/Creatinine Ratio 14.7 (10-20) Glucose 115 H (70-99) mg/dl Uric Acid 6.4 (2.6-7.2) mg/dl Calcium 8.8 (8.5-10.1) mg/dl Total Bilirubin 0.5 (0.2-1) mg/dl AST 19 (15-37) U/L ALT 32 (12-78) U/L Alkaline Phosphatase 95 (45-117) U/L C-Reactive Protein < 0.29 (0-0.29) mg/dl Total Protein 7.1 (6.4-8.2) gm/dl Albumin 3.8 (3.4-5.0) gm/dl Globulin 3.3 (2.5-4.0) gm/dl Albumin/Globulin Ratio 1.2 (0.9-2) Blood Pressure Blood Pressure Findings: Elevated blood pressure Blood Pressure Disposition: elevated BP felt to be situational MDM Narrative The patient is a 48 year old male who presents to the emergency department with complaints of waxing and waning right toe swelling beginning 2 months ago. The patient had an x-ray performed earlier today of his right great toe which showed bony destruction concerning for osteomyelitis. He was sent here for evaluation and treatment. Patient presents with no feeling to either of his great toes. There is sig nificant swelling noted to the right great toe. Patient has no significant leukocytosis or fever. C-reactive protein and sed rate were normal. I am not convinced the patient is suffering from osteomyelitis but the x-ray is certainly concerning. Patient will be treated with IV antibiotics and the case was discussed with the [facility] Hospitalist. They will evaluate for further management and consult orthopedics. Impression & Plan Acute osteomyelitis of toe Discharge Plan Visit Data *Final* Discharge Date/Time: 07/02/19 02:53 Chief Complaint: Infection Stated Complaint: INFECTION ED Provider: Shameka So Discharge Problem: Acute osteomyelitis of toe Patient Disposition: Admitted As Inpatient Discharge Instructions Interventions: ED Discharge Assessment Last Done: 07/02/19 02:53 Discharge Problem: Acute osteomyelitis of toe Qualifiers: Laterality: right Qualified Code(s): M86.171 - Other acute osteomyelitis, right ankle and foot The scribe's documentation has been prepared under my direction and personally reviewed by me in its entirety. I confirm that the note above accurately reflect s all work, treatment, procedures, and medical decision making performed by me.
--- NOTE | 2019-07-02 06:40 | Ultrasound Report ---
RIGHT LOWER EXTREMITY ARTERIAL DOPPLER ULTRASOUND CLINICAL HISTORY: Right great toe osteomyelitis. Diminished pulse. COMPARISON STUDY: Bilateral lower extremity arterial Doppler ultrasound November 12, 2015. TECHNIQUE: Bilateral ankle to brachial indices were obtained. Grayscale, color and Doppler sonography of the arterial system of the right lower extremity was performed. FINDINGS: The right ankle to brachial index measured 1.25 when using the posterior tibial artery and 1.23 when using the dorsalis pedis. The left ankle-brachial index measured 1.23 when using the track sweeper ior tibial artery and 1.29 when using the dorsalis pedis. No elevated velocities were identified with in the right lower extremity. There is minimal plaque. No evidence for vessel occlusion was noted. Bi phasic and triphasic flow is identified throughout the right lower extremity. Prominent right inguina l lymph nodes are benign and may be reactive. IMPRESSION: 1. Normal bilateral ankle to brachial indices. 2. No evidence for a hemodynamically significant stenosis or vessel occlusion. Minimal plaque. Electronically signed by: Girish Chan M.D. 07/02/2019 6:39 AM
--- NOTE | 2019-07-02 06:49 | CT Scan Report ---
CT OF THE RIGHT FOOT WITHOUT CONTRAST CLINICAL HISTORY: Suspected osteomyelitis of the right great toe. COMPARISON STUDY: Right foot radiographs July 01, 2019. TECHNIQUE: Axial images of the right foot were obtained without IV contrast. Sagittal and coronal rec onstructions were viewed. Study was performed utilizing automated exposure control for dose reduction and according to ALARA principles. FINDINGS: Tarsometatarsal joints are intact. No soft tissue gas is noted. No well-defined fluid colle ction is noted. Extensive bony destruction centered at the right first metatarsophalangeal joint is n oted with extensive fragmentation. There are numerous bone fragments and adjacent soft tissue swellin g as shown on radiographs performed earlier today. Bony erosions are noted within the right first met atarsal head and the base of the proximal phalanx of the right first toe. Otherwise, mild degenerativ e changes within the right foot are present. No additional sites of bony destruction are present. IMPRESSION: Destructive process with extensive bony erosions and fragmentation centered at the right first metatarsophalangeal joint involving the right first metatarsal head and the base of the proxima l phalanx with adjacent soft tissue swelling. Differential considerations include septic arthritis wi th osteomyelitis and neuropathic arthropathy. Electronically signed by: Girish Chan M.D. 07/02/2019 6:48 AM
[2019-07-02] MEDS: PREGABALIN 100 MG CAP PO SCH ×2 (08:39→13:59)
[2019-07-02 08:46] LABS: Folate (Folic Acid) 10.08 ng/ml (>5.38)
[2019-07-02] MEDS ORDERED: BACLOFEN 20 MG TAB PO SCH (09:00)
[2019-07-02] MEDS ORDERED: MELOXICAM 7.5 MG TAB PO SCH (09:00)
--- NOTE | 2019-07-02 10:17 | Pharmacy Report ---
Pharmacy Abx Initial Consult - Date of Service July 02, 2019 - Pharmacy Dosing Scope Date of Consult: 07/02/19 Consultation requested by: Dr. Iraheta Pharmacy is consulted to initiate vancomycin IV dosing therapy, order appropriate labs and adjust drug dose/frequency. - Subjective The patient is a 48 year old M admitted on 07/02/19 02:27. - Objective Height: 6 ft 4 in Weight: 154.1 kg Vital Signs (Past 12hrs): Vital Signs Temp Pulse Pulse Resp BP BP Pulse Ox 07/02/19 07:35 36.6 C 66 16 148/95 H 99 07/02/19 03:05 36.6 C 70 18 144/90 H 96 07/02/19 02:53 80 20 150/90 H 99 07/02/19 02:00 71 19 152/105 H 07/02/19 01:00 76 17 128/65 99 07/02/19 00:00 81 19 121/50 L 99 07/01/19 23:39 85 18 123/84 99 07/01/19 22:47 36.5 C 97 H 20 150/90 H 97 Lab Results (24hrs): Laboratory Tests (24 Hours) 07/01/19 07/01/19 07/01/19 23:17 23:17 23:17 WBC 8.84 Neut # (Auto) 5.22 ESR 9 Creatinine 0.95 Est Cr Clr Drug Dosing 152.5 C-Reactive Protein < 0.29 Micro Results: 07/01/19 23:30 Aerobic Blood Culture - Pending Blood Anaerobic Blood Culture - Pending 07/01/19 23:17 Aerobic Blood Culture - Pending Blood Anaerobic Blood Culture - Pending - Assessment & Plan Assessment 48 year old M receiving empiric vancomycin and ceftriaxone for treatment of possible acute osteomyelitis of the right toe. Patient reported having an x- ray/ultrasound at PCP office today and was told he had a toe infection. CT of foot completed at [facility] and impression notes destructive process with extensive bony erosions and fragmentation at the right first metatarsophalangeal joint with adjacent soft tissue swelling. Differential at this point includes septic arthritis with osteomyelitis vs. neuropathic arthropathy. Patient has complaints of waxing/waning toe pain that started approximately 2 months ago. Patient is afebrile on admission. Pertinent labs (07/02): ESR: 9 mm/hr, CRP: <0.29 mg/dL, SCr: 0.95 mg/dL, WBC: 8,840, uric acid: 6.4 mg/dL Plan Vancomycin IV * Estimated PK Parameters: Vd 0.54 L/kg, Massimo <0.104 hr-1, t1/2 <6.6 hr * Loading dose: 2750 mg (18 mg/kg) - given as 1 gram at 0129 with 1750 mg follow-up dose at 0521 * Maintenance dose: 1500 mg IV (10 mg/kg) every 8 hours * Goal trough level for osteomyelitis/septic arthritis: 15 to 20 mcg/mL * Trough level ordered for 07/03/19 @0530 prior to 4th dose * A less than traditional dose has been selected due to likelihood of drug accumulation in obese patient Ceftriaxone IV * Current regimen of 2 g IV q24h is appropriate based on weight and indication Pharmacy will continue to follow and will adjust dose/frequency as necessary. Thank you.
[2019-07-02] MEDS ORDERED: VANCOMYCIN HCL 1,500 MG in SODIUM CHLORIDE 0.9% 500 ML IV SCH (14:00)
--- NOTE | 2019-07-02 18:52 | Consultation Report ---
DATE OF CONSULTATION: 07/02/2019 CHIEF COMPLAINT: Right foot swelling. HISTORY OF PRESENT ILLNESS: The patient is a 48-year-old gentleman who was just admitted overnight with right foot swelling, pain, discomfort and concerns for infection. The patient is well known to me from a previous right total hip replacement done 6 months ago. He says that about 2 months ago when he started becoming more active, he started developing intermittent on and off swelling in his foot. There has been no trauma. He does state that he has had a 4-5 year history of neuropathy of unclear etiology in both legs. He seems to think it is related to some back issues. No real redness. His symptoms tend to wax and wane as far as swelling. He has never really been painful. He denies any redness, cellulitis or puncture wounds. He was seen in the Emergency Room last night as the swelling was more severe and he was concerned. PAST MEDICAL HISTORY: Per the admission H and P. PHYSICAL EXAMINATION: GENERAL: Shows a pleasant, middle-aged male. He is lying in bed and looks comfortable. EXTREMITIES: Examination of the right foot and leg reveals significant swelling of the first and second toes. He does have significant calluses in this area but no open wounds. They are not tender to palpate. He can flex and extend his toes appropriately. No signs of cellulitis. He does appear to have decreased sensation. X-RAYS: X-rays of the foot were reviewed. Shows extensive fragmentation of the first MTP joint and distal first metatarsal. Significant soft tissue swelling. CT was also reviewed and shows similar findings. Venous Doppler negative for DVT. LABORATORY DATA: I did review his labs. White cell count is normal. Hemoglobin and hematocrit are normal. His sed rate is normal and C-reactive protein is normal. ASSESSMENT: A 48-year-old male with apparent some degree of neuropathy of his lower extremities with a swollen first and second toe and first metatarsophalangeal joint. I cannot imagine this could be infection with a normal sed rate and C-reactive protein. I am almost certain this represents a neuropathic joint. Having said that, he has no real etiology for his neuropathy. PLAN: At this point, I would recommend evaluation by neurologist as well as referral to diabetic foot clinic for appropriate shoe wear and management of this neuropathic joint. I do not think he needs further antibiotics. I do think anti-inflammatories would likely help him. Wearing a good compression stocking. He needs to make sure he checks his feet regularly to make sure he does not get any sores on them which could introduce infection. I would recommend he follow up with diabetic foot clinic. Any orthopedic questions can be directed to me at [phone]. I did emphasize the importance of him wearing comfortable shoes and looking at his feet several times a day to make sure he does not get ulcerations.
--- NOTE | 2019-07-02 19:58 | Discharge Summary ---
Date of Service July 02, 2019 Admission HPI Per Admitting Provider The patient is a 48-year-old male who presents to the emergency department with the above complaints. He does not not experience much pain, as he has been known to have a neuropathy from undetermined causes at this time. He did have studies ordered by his PCP in [place] on 06/23/2019, with x-ray of right foot showing destructive changes and bony fragmentation involving the first metatarsophalangeal joint with diagnostic considerations including osteomyelitis, septic arthritis, neuropathic joint and as well as an atypical appearance of advanced posttraumatic arthritis. The patient also had a venous Doppler performed at same date that was negative for DVT in right lower extremity. The patient was started on vancomycin IV and ceftriaxone IV by the ED for presumptive osteo-. Principal Diagnosis Destructive Neuropathic Arthropathy Discharge Exam Constitutional WD/WN, vitals as above Eyes + anicteric sclerae ENMT Ears: no hearing impairment Mouth: no oral mucosal abnormality Neck trachea midline, no thyromegaly Respiratory normal respiratory effort, lungs clear to auscultation Cardiovascular RRR, no murmur, no edema Gastrointestinal (Abdomen) Inspection/Auscultation: normal bowel sounds Percussion/Palpation: abdomen soft; abdomen nontender Musculoskeletal no cyanosis or clubbing, extremities motor strength 5/5 R big toe enlarged with some nonpitting edema and non-tender to palp; no erythema or drainage; presence of a callus on tip of 2nd toe without signs of erythema, drainage, or obvious openings; toes/foot is not warm to touch; yellowing/thickening of toe nails Skin no rashes, warm and dry Neurologic moves all extremities Psychiatric A+Ox3, euthymic affect Discharge Data Allergies Allergy/AdvReac Type Severity Reaction Status Date / Time No Known Allergies Allergy Unverified 07/01/19 23:34 Consultations 07/02/19 01:40 ED Decision to Admit Stat 07/02/19 03:29 Consult Case Management - Discharge Planning Routine 07/02/19 05:53 Consult Orthopedic Surgery Routine Ordered Studies 07/02/19 02:20 CT foot RT wo con Urgent 07/02/19 03:29 US arterial duplex LE RT Urgent Hospital Course (1) Neuropathic arthropathy: - CT scan reveals destructive changes around 1st metatarsal phalangeal joint - concern for osteomyelitis vs septic arthritis vs neuropathic joint -- Symptoms have been intermittent x 2 months without pain/redness but instead significant swelling involving toe/forefoot which spontaneously has reduced in the past - Patient reporting improvement in symptoms during hospital stay - remains afebrile and without leukocytosis - Has significant neuropathy - based on clinical appearance and discussion with orthopedics - suggests this is likely a destructive arthropathy from his neuropathy/arthritis instead of infectious etiology - Will hold on further Abx at this time - will trial a different anti- inflammatory but ultimately can resume Mobic when complete - Could consider MRI as outpatient if necessary - Given his hip replacement and he does report some changes in his gait his neuropathy may be preventing him from noticing injury or unusual pressures leading to destructive changes - recommend possibly neurology evaluation and orthotics which the wound care center information was given to patient - Can F/U with Dr. Bruce if necessary -- Per Dr. Bruce - evaluation by neurologist recommended and referral to diabetic foot clinic for orthotics; compression stockings may assist with lower extremity edema; recommend routine foot checks for any injury/ulcerations/lacerations (2) Peripheral neuropathy: - Pregabalin 200 mg in AM and 100 mg in AM as this is how he takes them; Baclofen and Mobic (after finishing short Toradol course) (3) Hyperlipidemia: - Rosuvastatin 20 mg HS (4) Restless leg syndrome: - Ropinirole 2 mg HS (5) Morbid obesity with BMI of 40.0-44.9, adult: - Noted as potential contributor to neuropathic joint Total Time Total Time Spent Total Time Spent (In Minutes): Greater than 30 minutes Discharge Plan Discharge Items Patient Disposition: Home - Self-Care Reason For Visit: SUSPECTED OSTEOMYELITIS OF RIGHT GREAT TOE Discharge Diagnosis: Erosive Arthropathy Activity: Resume your previous activity Non-emergency contact: Primary Care Provider Call non-emergency contact if: you have any medication questions, your symptoms worsen and you have a fever Follow-up/Referrals: Gumaro Chan MD [Primary Care Provider] - Diet: Regular Addtl Attending Provider Instructions: Bony Erosion of First Toe: - Imaging shows a destructive process of the right big toe joint. There is a couple options for cause of this. One being infection, however you do not have an elevated white blood cell count (a test to look for infection) as well as no fever, pain, and overall feeling well. -- Another option which may fit would be more of an inflammatory/arthritis condition that is causing swelling. Discussion with the orthopedic surgeon, they suggest you may need to get fitted for specific shoes as it is possible that the way you are walking and with restriction of shoes can cause added pressure onto this joint. What happens is over time added pressure can wear down the carti mariam/ligaments/bones and causes this destructive picture which leads to swelling, stiffness, etc. -- You can be more prone to this because of your neuropathy as you may not sense pain the same way as other can and therefore over time this can be causing some unnoticed damage to the joint of this toe. - At this time would recommend to see your family doctor to get a referral for an orthopedic shoe. Recommend to follow-up with Dr. Bruce but you may also want to consider a dental billing specialist or industrial cafeteria manager and Dr. Bruce or your family doctor may recommend this. - For now, we are going to hold on additional antibiotics as infection does not seem likely especially as this has been ongoing for a couple months and no ill symptoms have occurred. However, recommend to see a doctor if you would develop pain, redness, or warmth of the toe. As well if you would feel ill or start having fevers. - We will try Toradol or Ketorolac for inflammation. This is a non-steroidal anti-inflammatory medication that may help reduce some of your inflammation. However, Mobic is in a similar class of medications. DO NOT TAKE BOTH OF THESE MEDICATIONS. If you don't notice any changes with using the Toradol, you can stop this and just resume your Mobic as previously prescribed. As well, sometime this medication has a higher copay. If the copay is unreasonable recommend to continue the Mobic instead. Can also use over the counter Tylenol as needed. Can sparingly use Ibuprofen/Advil/Motrin/etc but again they are in a similar class to Mobic so you dont want to take both together long-term. Home Medications: - Continue your home medications as previously prescribed. We did not make any adjustments to these. However hold Mobic/Meloxicam while on Toradol Pending Studies at Discharge: No Stand-Alone Forms: [facility], Smoking Cessation Medications and DC Order Prescriptions: New ketorolac 10 mg tablet 10 mg PO Q6H PRN (Reason: pain) 5 Days Qty: 20 RF: 0 Continued ropinirole 1 mg tablet 2 mg PO HS RF: 0 baclofen 20 mg Tablet 20 mg PO BID RF: 0 meloxicam 7.5 mg Tablet 7.5 mg PO BID RF: 0 rosuvastatin [Crestor] 20 mg Tablet 20 mg PO HS RF: 0 pregabalin [Lyrica] 100 mg Capsule 100 mg PO TID RF: 0 acetaminophen [Tylenol Extra Strength] 500 mg Tablet 500 - 1,000 mg PO Q6H PRN (Reason: Pain) RF: 0 Discharge Orders: Discharge Order (Routine); Ordered 07/02/19 Ordered By: Sonia Horvath/Other Patient Handouts: Osteomyelitis Dc Admission Data Admit Date/Time: 07/02/19 02:27 Attending Provider: Monster Mancilla Admit Provider: Kaiden Iraheta Primary Care Provider: Gumaro Chan Other Providers: Kaiden Iraheta ; Jaycob Bruce Other Interventions: Discharge Summary Assessment (RN) Last Done: 07/02/19 17:57 DC Date/Time DO NOT enter until pt leaves facility: 07/02/19 18:45 Supervising Physician Co-Signing Physician Notes Attending note: patient seen and examined with Sonia Gonzalez PA-C. I agree with her discharge summary. I personally reviewed the labs and imaging findings. discussed the case with Dr. Bruce with orthopedics. He saw the patient and reviewed the CT. Did not feel that this represented infection/osteomyelitis. He was inclined to think that this was an arthropathy related to neuropathy. - Swelling of first MTP joint, right foot CT with evidence of erosive/destructive changes WBC normal, no fever, ESR normal, no pain in the joint, just intermittent swelling most likely arthropathy related to neuropathy recommend follow up with PCP, possible referral to neurology, consider orthotic shoe to prevent further damage to joint
[2019-07-02] MEDS ORDERED: ROPINIROLE HCL 1 MG TABLET PO SCH (21:00)
[2019-07-02] MEDS ORDERED: ROSUVASTATIN CALCIUM 20 MG TAB PO SCH (21:00)
[2019-07-03] MEDS ORDERED: cefTRIAXone SODIUM 2,000 MG in DEXTROSE 5% 50 ML IV SCH (01:00)
[2019-07-03] MEDS ORDERED: VANCOMYCIN TROUGH ONE (05:30)
== END 2019-07-02 18:45 | disposition home or self-care (01) | DRG 540 ==
LOC: ED 22:44 → SUATTDRO 07-02 02:27 → 3N 07-02 02:27

== ENCOUNTER 2024-01-01 15:43 | Inpatient (IN) ==
--- NOTE | 2024-01-01 16:52 | Emergency Department Note ---
Impression & Plan Osteomyelitis, Abscess of right foot, Failure of outpatient treatment ED Provider Note NAME: CHILANGO BERRY AGE: 53 SEX: M : 1970 ARRIVES VIA: Walk-In INFORMANT: [Patient] ED PROVIDER(S): [Ender Qureshi MD] CHIEF COMPLAINT: Right foot infection HISTORY OF PRESENT ILLNESS: The patient is a 53-year-old male who states that about a week ago, he began noticing pain in the right foot. 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 He apparently had some wood in the area of the callus and this was removed. He was placed on Keflex. The patient [place] this [place]. He states that when he returned home, he noticed redness to the dorsum of the foot and some right foot swelling. He no longer has any real pain. He has noticed some chills at times, there has been no fever. The patient has had surgical work on this foot. He is also diabetic. PMHx/PSHx/Social Hx: See Below PHYSICAL EXAM: GENERAL: Patient is in no acute distress. HEENT: No acute trauma, normocephalic atraumatic, mucous membranes moist, no nasal congestion. NECK: No stridor, no adenopathy, no meningismus, trachea is midline. LUNGS: Clear to auscultation bilaterally, no wheeze, no rhonchi, breath sounds equal. HEART: Tachycardic, regular rhythm, no murmurs. ABDOMEN: Soft, nontender, no peritonitis. EXTREMITIES: No cyanosis. The patient does have some right foot swelling. There is erythema to the distal dorsal lateral aspect of the right foot. No drainage. There is some warmth present. Fluctuance was noted to the distal dorsal lateral aspect of the foot in the area of erythema. The plantar aspect of the foot does not show erythema or drainage. NEUROLOGIC: Oriented x 3, no acute motor or sensory deficits, no focal weakness. SKIN: No jaundice, no diaphoresis. DIFFERENTIAL DIAGNOSIS: Abscess, osteomyelitis, cellulitis, foreign body, among others. EMERGENCY DEPARTMENT PROCEDURES: Abscess drainage: This procedure was performed by me. Using sterile technique the area was cleansed. Betadine and alcohol was used for prep. Patient did not require any anesthesia. An 11 blade scalpel was used to make a 1 cm incision. A small amount of pus did drain. A culture was obtained and sent. The area was then dressed. There were no complications. Patient tolerated the procedure without difficulty. MEDICAL DECISION MAKING: There is no leukocytosis or concerning anemia. There is a normal platelet count. No renal failure or significant electrolyte abnormality. Lactic acid level is not elevated making severe sepsis less likely. There is no concerning liver enzyme elevation. Right foot CT scan does show osteomyelitis with fracture as well as abscess. Clinically, the patient had a cellulitis of the right lower extremity. The patient received IV saline for hydration. He was given IV vancomycin and IV Zosyn. He did not require anything for pain. Patient appears to have osteomyelitis of his right lower extremity. There was an abscess seen on imaging as well. As noted above, this abscess was opened, a culture was sent for analysis. The patient is in need of a hospital stay. I described all my findings to him. I did speak with case management, the on-call hospitalist was consulted. Prior/Outside records/notes reviewed: None Imaging/x-ray results per my interpretation: Chronic Medical/Social conditions affecting care: Diabetes Care/Management discussed with: Case management, the on-call hospitalist. 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 Charcot's joint of right foot Morbid obesity Encounter for pre-operative examination Sleep apnea Noncompliant with CPAP Acid reflux DIETARY CONTROLLED Osteoarthritis Degenerative disc disease Restless leg syndrome High cholesterol Lung contusion Left acetabular fracture Surgical History History of right hip replacement History of testicular surgery A CHILD History of hand surgery L/MIDDLE/3 PINS History of hip surgery L/PLATE & SCREWS Family History Father Family history of non-Hodgkin's lymphoma Sister Family history of ovarian cancer Other Family history of testicular cancer Social History Smoking Status: Current every day smoker Cigarettes Per Day: 1-2 CIGS A DAY, TRYING TO QUIT - ADVISED NPO; Second Hand Exposure: No; Do You Dip or Chew Tobacco: Yes; Hx Alcohol Use: Yes Alcohol type: beer Hx Substance Use: No Preferred Language: Yakut Communication Ability: Effective 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 Beliefs That Will Affect Care: None marital status: Current Living Situation: Family Current Living Situation Comment: , son, 2 daughters, 3 grandchildren Feels Safe at Home: Yes Assistive Devices: None Allergies Allergies Allergy/AdvReac Type Severity Reaction Status Date / Time No Known Allergies Allergy Unverified 02/10/20 10:14 Home Meds Home Medications Medication Instructions Recorded Confirmed baclofen 20 mg tablet 20 mg PO BID 01/01/24 01/01/24 furosemide 20 mg tablet 20 mg PO DAILY 01/01/24 01/01/24 metformin 500 mg tablet,extended 1,000 mg PO BID 01/01/24 01/01/24 release 24 hr ropinirole 1 mg tablet 1 mg PO BID 01/01/24 01/01/24 semaglutide (weight loss) 2.4 2.4 mg subcut WK 01/01/24 01/01/24 mg/0.75 mL subcutaneous pen injector (Wegovy) Results & Data (ED) Vital Signs Vital Signs - 24 hr 01/01/24 15:56 01/01/24 18:30 01/01/24 18:46 Temperature 36.9 C Temperature Source Oral Oral Pulse Rate 109 H Pulse Rate [Finger] 77 79 Pulse Rhythm Regular Pulse Strength Normal Respiratory Rate 18 16 18 Respiratory Effort / Characteristics Non-Labored Respiratory Depth Normal Respiratory Pattern Regular Blood Pressure 159/88 H Blood Pressure [Left Arm] 135/88 127/79 Blood Pressure Mean 111 Blood Pressure Mean [Left Arm] 103 95 Blood Pressure Position Sitting Pulse Oximetry 98 97 Oxygen Delivery Method Room Air Sepsis Recent Fever Within 48 Hours No Sepsis New/Unexplained Change in Mental Status No Sepsis Action Taken by Nursing No Action Required 01/01/24 19:00 01/01/24 20:00 Temperature Temperature Source Pulse Rate Pulse Rate [Finger] 81 82 Pulse Rhythm Pulse Strength Respiratory Rate 19 19 Respiratory Effort / Characteristics Respiratory Depth Respiratory Pattern Blood Pressure Blood Pressure [Left Arm] 123/75 129/77 Blood Pressure Mean Blood Pressure Mean [Left Arm] 91 94 Blood Pressure Position Pulse Oximetry 97 98 Oxygen Delivery Method Room Air Room Air Sepsis Recent Fever Within 48 Hours Sepsis New/Unexplained Change in Mental Status Sepsis Action Taken by Snf Medications Current Medication List: was personally reviewed by me Laboratory Data Attestation: I reviewed the patient's lab results. 01/01/24 17:00 01/01/24 17:00 Lab Results 01/01/24 Range/Units 17:00 WBC 9.42 (4.8-10.8) K/ul RBC 4.40 L (4.70-6.10) M/uL Hgb 13.6 L (14.0-18.0) g/dl Hct 39.1 L (42.0-52.0) % MCV 88.9 (80.0-100.0) fL MCH 30.9 (25.0-34.0) pg MCHC 34.8 (32.0-36.0) g/dL RDW Std Deviation 40.9 (36.4-46.3) fL RDW Coeff of Kenny 12.4 (11.5-14.5) % Plt Count 212 (130-400) K/uL MPV 9.4 (9.4-12.4) fL Immature Gran % (Auto) 0.2 % Neut % (Auto) 75.7 % Lymph % (Auto) 15.9 % Trimble % (Auto) 7.3 % Eos % (Auto) 0.7 % Baso % (Auto) 0.2 % Neut # (Auto) 7.12 H (1.40-6.50) K/uL Lymph # (Auto) 1.50 (1.20-3.40) K/uL Trimble # (Auto) 0.69 H (0.11-0.59) K/uL Eos # (Auto) 0.07 (0.00-0.50) K/uL Baso # (Auto) 0.02 (0.00-0.20) K/uL Immature Gran # (Auto) 0.02 (0.01-0.20) K/uL Sodium 137 (136-145) mmol/L Potassium 3.9 (3.5-5.1) mmol/L Chloride 103 (98-107) mmol/L Carbon Dioxide 24 (21-32) mmol/L Anion Gap 10 (3-11) BUN 16 (6-23) mg/dl Creatinine 0.81 (0.6-1.4) mg/dl Est Cr Clr Drug Dosing 157.8 ml/min Est GFR ( Amer) 117.6 ml/min Est GFR (Non-Af Amer) 101.5 ml/min BUN/Creatinine Ratio 19.8 (10-20) Glucose 95 (70-99(Fasting)) mg/dl Lactate 0.9 (0.4-2.0) mmol/L Calcium 9.2 (8.6-10.3) mg/dl Magnesium 1.7 (1.7-2.4) mg/dl Total Bilirubin 0.7 (0.2-1.0) mg/dl AST 22 (13-39) U/L ALT 25 (7-52) U/L Alkaline Phosphatase 73 (34-104) U/L Total Protein 7.4 (6.0-8.3) gm/dl Albumin 4.0 (3.4-5.0) gm/dl Globulin 3.4 (2.5-4.0) gm/dl Albumin/Globulin Ratio 1.2 (0.9-2) Administered Medications Insulin Aspart (Insulin Aspart Per Unit Charge) 0 units SC Q6 TAYLA Stop: 01/31/24 22:44 Last Admin: 01/01/24 22:56 Dose: Not Given Documented By: HJ Discontinued Medications Baclofen (Baclofen 10 Mg Tab) 20 mg PO NOW STA Stop: 01/01/24 21:38 Last Admin: 01/01/24 21:45 Dose: 20 mg Documented By: SKM Sodium Chloride (Nss) 1,000 mls @ 999 mls/hr IV .Q1H1M ONE Stop: 01/01/24 17:52 Last Infusion: 01/01/24 18:38 Dose: Infused Documented By: Admin: 01/01/24 16:57 Dose: 999 mls/hr Documented By: ACC Piperacillin Sod/Tazobactam Sod (Zosyn) 4.5 gm in 120 mls @ 240 mls/hr IV NOW ONE Stop: 01/01/24 19:49 Last Infusion: 01/01/24 20:16 Dose: Infused Documented By: Admin: 01/01/24 19:39 Dose: 240 mls/hr Documented By: SKM Vancomycin HCl 2,750 mg/ (Sodium Chloride) 555 mls @ 200 mls/hr IV NOW ONE Stop: 01/01/24 22:06 Last Admin: 01/01/24 20:23 Dose: 200 mls/hr Documented By: ANNAMARIE Ioversol (Optiray 320 100ml) 92 ml IV ONCE ONE Stop: 01/01/24 18:14 Last Admin: 01/01/24 18:14 Dose: 92 ml Documented By: JAMES Imaging Data Radiologist's Impression: Foot CT 01/01/24 16:43 CT SCAN OF THE RIGHT FOOT WITH IV CONTRAST CLINICAL HISTORY: Right foot infection. COMPARISON STUDY: Radiographs of the right foot dated 06/12/2021. CT scan of the right foot dated 07/02/2019. TECHNIQUE: CT scan of the right foot is performed from the distal tibia and fibular to the base of the foot. Images are reviewed in the axial, sagittal, and coronal planes. IV contrast was administered without complication. A dose lowering technique was utilized adhering to the principles of ALARA. Note that interpretation is significant with suboptimal without current plain film correlate. CT DOSE: 415.95 mGy.cm FINDINGS: The skeletal structures are osteopenic. There is erosive/destructive change involving the fifth metatarsal head/neck with presumed pathologic fracture. There is significant surrounding soft tissue edema and inflammation. A multiloculated fluid collection extending from the dorsum of the foot to the plantar aspect of the foot at this site around the fifth MTP is seen on sagittal image #11. This measures 5.4 x 2.5 x 2.0 cm in aggregate dimension. There is chronic deformity seen involving the second through fourth metatarsal necks. Severe degenerative change and erosion is again noted at the first metatarsophalangeal joint. [id number] osteoarthritic change is noted in the midfoot. Milder soft tissue edema is seen throughout the remainder of the foot. The ankle mortise is maintained. There is generalized atrophy of the regional musculature. The Achilles tendon is intact as visualized. IMPRESSION: 1. Erosive/destructive change is seen involving the fifth metatarsal head/neck with presumed pathologic fracture. This is highly suspicious for osteomyelitis. 2. There is surrounding inflammation with a multiloculated fluid collection extending from the dorsum of the foot to the plantar aspect of the foot at this site. This is consistent with abscess. 3. No additional foci of osteomyelitis are suspected. 4. Additional foci of chronic/degenerative change throughout the foot as above. ACT 112: Negative or not required by law. Dictated: 01/01/2024 6:40 PM Transcribed: 01/01/2024 7:14 PM Manoj [id number] [email or web address] Electronically signed by: Ender Leon M.D. 01/01/2024 7:15 PM Discharge Plan Visit Data Chief Complaint: Infection Stated Complaint: R FOOT INFECTION, BLACK AND BLUE FOOT, SWELLING ED Provider: Ender Qureshi Discharge Problem: Osteomyelitis, Abscess of right foot, Failure of outpatient treatment Patient Disposition: Admitted As Inpatient Condition: Fair Discharge Instructions Interventions: ED Discharge Assessment Last Done: 01/01/24 21:51 Discharge Problem: Osteomyelitis Qualifiers: Osteomyelitis type: unspecified type Osteomyelitis location: foot Laterality: r ight Qualified Code(s): M86.9 - Osteomyelitis, unspecified
[2024-01-01] MEDS: SODIUM CHLORIDE 0.9% 1,000 ML IV ONE (16:57)
[2024-01-01 17:21] LABS: Basophils # (auto) 0.02 K/uL (0.00-0.20); Basophils % (auto) 0.2 %; Eosinophils # (auto) 0.07 K/uL (0.00-0.50); Eosinophils % (auto) 0.7 %; Hematocrit (blood only) 39.1 % (42.0-52.0); Hemoglobin 13.6 g/dl (14.0-18.0); Immature Granulocytes # (auto) 0.02 K/uL (0.01-0.20); Immature Granulocytes % (auto) 0.2 %; Lymphocytes % (auto) 15.9 %; Mean Corpuscular Hemoglobin 30.9 pg (25.0-34.0); Mean Corpuscular Hgb Conc 34.8 g/dL (32.0-36.0); Mean Corpuscular Volume 88.9 fL (80.0-100.0); Mean Platelet Volume 9.4 fL (9.4-12.4); Monocytes # (auto) 0.69 K/uL (0.11-0.59); Monocytes % (auto) 7.3 %; Neutrophils # (auto) 7.12 K/uL (1.40-6.50); Neutrophils % (auto) 75.7 %; Platelet Count 212 K/uL (130-400); RDW Coefficient of Variation 12.4 % (11.5-14.5); RDW Standard Deviation 40.9 fL (36.4-46.3); White Blood Count 9.42 K/ul (4.8-10.8)
[2024-01-01 17:39] LABS: Albumin Globulin Ratio 1.2 (0.9-2); BUN Creatinine Ratio 19.8 (10-20); Bilirubin,Total 0.7 mg/dl (0.2-1.0); Calcium 9.2 mg/dl (8.6-10.3); Creatinine Clr Calc Pharmacy 157.8 ml/min; Est GFR (African American) 117.6 ml/min; Est GFR (Non-African American) 101.5 ml/min; Globulin 3.4 gm/dl (2.5-4.0); Magnesium 1.7 mg/dl (1.7-2.4); Potassium 3.9 mmol/L (3.5-5.1); Total Protein 7.4 gm/dl (6.0-8.3)
[2024-01-01] MEDS: OPTIRAY 320 100ml IV ONE (18:14)
--- NOTE | 2024-01-01 19:16 | CT Scan Report ---
CT SCAN OF THE RIGHT FOOT WITH IV CONTRAST CLINICAL HISTORY: Right foot infection. COMPARISON STUDY: Radiographs of the right foot dated 06/12/2021. CT scan of the right foot dated 06/05. TECHNIQUE: CT scan of the right foot is performed from the distal tibia and fibular to the base of th e foot. Images are reviewed in the axial, sagittal, and coronal planes. IV contrast was administered without complication. A dose lowering technique was utilized adhering to the principles of ALARA. Not e that interpretation is significant with suboptimal without current plain film correlate. CT DOSE: 415.95 mGy.cm FINDINGS: The skeletal structures are osteopenic. There is erosive/destructive change involving the f ifth metatarsal head/neck with presumed pathologic fracture. There is significant surrounding soft ti ssue edema and inflammation. A multiloculated fluid collection extending from the dorsum of the foot to the plantar aspect of the foot at this site around the fifth MTP is seen on sagittal image #11. Th is measures 5.4 x 2.5 x 2.0 cm in aggregate dimension. There is chronic deformity seen involving the second through fourth metatarsal necks. Severe degenerative change and erosion is again noted at the first metatarsophalangeal joint. [id number] osteoarthritic change is noted in the midfoot. Mi lder soft tissue edema is seen throughout the remainder of the foot. The ankle mortise is maintained. There is generalized atrophy of the regional musculature. The Achilles tendon is intact as visualize d. IMPRESSION: 1. Erosive/destructive change is seen involving the fifth metatarsal head/neck with presumed patholog ic fracture. This is highly suspicious for osteomyelitis. 2. There is surrounding inflammation with a multiloculated fluid collection extending from the dorsum of the foot to the plantar aspect of the foot at this site. This is consistent with abscess. 3. No additional foci of osteomyelitis are suspected. 4. Additional foci of chronic/degenerative change throughout the foot as above. ACT 112: Negative or not required by law. Dictated: 01/01/2024 6:40 PM Transcribed: 01/01/2024 7:14 PM Manoj [id number] [email or web address] Electronically signed by: Ender Leon M.D. 01/01/2024 7:15 PM
[2024-01-01] MEDS ORDERED: VANCOMYCIN CONSULT ACTIVE PRN (19:20)
[2024-01-01] MEDS: PIPERACILLIN/TAZOBACTAM 4.5 GM/120 ML BAG IV ONE (19:39)
[2024-01-01] MEDS: VANCOMYCIN HCL 2,750 MG in SODIUM CHLORIDE 0.9% 500 ML IV ONE (20:23)
--- NOTE | 2024-01-01 20:59 | History & Physical Report ---
Date of Service January 01, 2024 Assessment & Plan (1) Foot abscess, right: Plan: 53-year-old male with past medical history significant for diabetes, metabolic syndrome, obesity, restless leg syndrome, Charcot joint right ankle and foot, lumbar spine pain, polyneuropathy, tobacco use presents with right foot infection. Patient went to podiatry last week and was told he has infection in the right foot on the plantar aspect. He was prescribed Keflex. But the infection seem to spreading it has come up to the upper foot which concerned him and came to the ER today. Denies any pain in the foot. Able to ambulate okay. Denies any fevers. Hemodynamics are okay. States once in a while gets headaches because of his work stress. Denies any dizziness. No blurred visions. No runny nose or sore throat. No cough. Appetite is okay. No chest pain or shortness of breath. No nausea. No abdominal pain. Normal bowel and bladder movements. Denies blood in stool or black stools. Denies any hematuria. Right foot abscess Osteomyelitis Failed outpatient treatment Keflex IV Vanco and Zosyn N.p.o. after midnight Ortho consult in a.m. Diabetes Hold metformin Sliding scale Will follow blood sugars Follow HbA1c levels Obesity On wegovy Follow-up with nutrition Sleep apnea Not able to tolerate CPAP Restless leg syndrome Continue ropinirole Tobacco abuse Needs counseling DVT prophylaxis SCDs for now Disposition Medical floor Full code History of Present Illness Chief Complaint: Right foot infection Primary Care Provider: Annabella Renteria PA-C 53-year-old male with past medical history significant for diabetes, metabolic syndrome, obesity, restless leg syndrome, Charcot joint right ankle and foot, lumbar spine pain, polyneuropathy, tobacco use presents with right foot infection. Patient went to podiatry last week and was told he has infection in the right foot on the plantar aspect. He was prescribed Keflex. But the infection seem to spreading it has come up to the upper foot which concerned him and came to the ER today. Denies any pain in the foot. Able to ambulate okay. Denies any fevers. Hemodynamics are okay. States once in a while gets headaches because of his work stress. Denies any dizziness. No blurred visions. No runny nose or sore throat. No cough. Appetite is okay. No chest pain or shortness of breath. No nausea. No abdominal pain. Normal bowel and bladder movements. Denies blood in stool or black stools. Denies any hematuria. Past ministry. As mentioned above Past surgical history. Left repair of the hip for fracture. Right total hip replacement. Social history. . Smokes half pack a day for last 30 years. Alcohol 1 or 2 times a week. No drug use. Family history. Father had non-Hodgkin's lymphoma. Diabetes in the family. Allergies Allergy/AdvReac Type Severity Reaction Status Date / Time No Known Allergies Allergy Unverified 02/10/20 10:14 Home Medications Medication Instructions Recorded Confirmed Type baclofen 20 mg tablet 20 mg PO BID 01/01/24 01/01/24 History furosemide 20 mg tablet 20 mg PO DAILY 01/01/24 01/01/24 History metformin 500 mg tablet,extended 1,000 mg PO BID 01/01/24 01/01/24 History release 24 hr ropinirole 1 mg tablet 1 mg PO BID 01/01/24 01/01/24 History semaglutide (weight loss) 2.4 2.4 mg subcut WK 01/01/24 01/01/24 History mg/0.75 mL subcutaneous pen injector (Wegovy) Past Med/Surg History Medical History 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 Charcot's joint of right foot Morbid obesity Encounter for pre-operative examination Sleep apnea Noncompliant with CPAP Acid reflux DIETARY CONTROLLED Osteoarthritis Degenerative disc disease Restless leg syndrome High cholesterol Lung contusion Left acetabular fracture Surgical History History of right hip replacement History of testicular surgery A CHILD History of hand surgery L/MIDDLE/3 PINS History of hip surgery L/PLATE & SCREWS Family History Father Family history of non-Hodgkin's lymphoma Sister Family history of ovarian cancer Other Family history of testicular cancer Social History Smoking Status: Current every day smoker Tobacco Type: Cigarettes Cigarettes Per Day: 1-2 CIGS A DAY, TRYING TO QUIT - ADVISED NPO; Second Hand Exposure: No; Do You Dip or Chew Tobacco: No; Hx Alcohol Use: Yes Alcohol type: beer Hx Substance Use: No Preferred Language: Danish Communication Ability: Effective Hand Collator Required: No Beliefs That Will Affect Care: None marital status: Current Living Situation: Spouse and Family Current Living Situation Comment: , son, 2 daughters, 3 grandchildren Feels Safe at Home: Yes Safety Concerns: Feels Safe At This Time Assistive Devices: None Review of Systems Review of Systems: All systems reviewed & are unremarkable except as noted in HPI & below Physical Exam Physical Exam: General- Not in distress. Head- atraumatic Eyes- PERRL. ENT- oropharynx clear Neck- supple, no JVD. Lungs- clear to auscultation no wheezing or crackles. Heart- regular rhythm; no murmur, no gallop. Abdomen- normal bowel sounds, soft, nontender, no distension. Extremities- Right foot abscess on lateral aspect extending from dorsal to plantar aspect. Neuro- alert, oriented PERRL, no facial palsy; no dysarthria; moves extremities. Results & Data Results & Data Vital Signs (Past 12 Hours) Vital Signs Temp Pulse Pulse Resp BP BP Pulse Ox 01/01/24 20:00 82 19 129/77 98 01/01/24 19:00 81 19 123/75 97 01/01/24 18:46 79 18 127/79 97 01/01/24 18:30 77 16 135/88 01/01/24 15:56 36.9 C 109 H 18 159/88 H 98 O2 Del Method 01/01/24 20:00 Room Air 01/01/24 19:00 Room Air 01/01/24 18:46 01/01/24 18:30 01/01/24 15:56 Room Air Diagnostic Findings Laboratory Results WBC 9.42 K/ul (4.8-10.8) 01/01/24 17:00 RBC 4.40 M/uL (4.70-6.10) L 01/01/24 17:00 Hgb 13.6 g/dl (14.0-18.0) L 01/01/24 17:00 Hct 39.1 % (42.0-52.0) L 01/01/24 17:00 MCV 88.9 fL (80.0-100.0) 01/01/24 17:00 MCH 30.9 pg (25.0-34.0) 01/01/24 17:00 MCHC 34.8 g/dL (32.0-36.0) 01/01/24 17:00 RDW Std Deviation 40.9 fL (36.4-46.3) 01/01/24 17:00 RDW Coeff of Kenny 12.4 % (11.5-14.5) 01/01/24 17:00 Plt Count 212 K/uL (130-400) 01/01/24 17:00 MPV 9.4 fL (9.4-12.4) 01/01/24 17:00 Immature Gran % (Auto) 0.2 % 01/01/24 17:00 Neut % (Auto) 75.7 % 01/01/24 17:00 Lymph % (Auto) 15.9 % 01/01/24 17:00 Parke % (Auto) 7.3 % 01/01/24 17:00 Eos % (Auto) 0.7 % 01/01/24 17:00 Baso % (Auto) 0.2 % 01/01/24 17:00 Neut # (Auto) 7.12 K/uL (1.40-6.50) H 01/01/24 17:00 Lymph # (Auto) 1.50 K/uL (1.20-3.40) 01/01/24 17:00 Parke # (Auto) 0.69 K/uL (0.11-0.59) H 01/01/24 17:00 Eos # (Auto) 0.07 K/uL (0.00-0.50) 01/01/24 17:00 Baso # (Auto) 0.02 K/uL (0.00-0.20) 01/01/24 17:00 Immature Gran # (Auto) 0.02 K/uL (0.01-0.20) 01/01/24 17:00 Sodium 137 mmol/L (136-145) 01/01/24 17:00 Potassium 3.9 mmol/L (3.5-5.1) 01/01/24 17:00 Chloride 103 mmol/L (98-107) 01/01/24 17:00 Carbon Dioxide 24 mmol/L (21-32) 01/01/24 17:00 Anion Gap 10 (3-11) 01/01/24 17:00 BUN 16 mg/dl (6-23) 01/01/24 17:00 Creatinine 0.81 mg/dl (0.6-1.4) 01/01/24 17:00 Est Cr Clr Drug Dosing 157.8 ml/min 01/01/24 17:00 Est GFR ( Amer) 117.6 ml/min 01/01/24 17:00 Est GFR (Non-Af Amer) 101.5 ml/min 01/01/24 17:00 BUN/Creatinine Ratio 19.8 (10-20) 01/01/24 17:00 Glucose 95 mg/dl (70-99(Fasting)) 01/01/24 17:00 Lactate 0.9 mmol/L (0.4-2.0) 01/01/24 17:00 Calcium 9.2 mg/dl (8.6-10.3) 01/01/24 17:00 Magnesium 1.7 mg/dl (1.7-2.4) 01/01/24 17:00 Total Bilirubin 0.7 mg/dl (0.2-1.0) 01/01/24 17:00 AST 22 U/L (13-39) 01/01/24 17:00 ALT 25 U/L (7-52) 01/01/24 17:00 Alkaline Phosphatase 73 U/L (34-104) 01/01/24 17:00 Total Protein 7.4 gm/dl (6.0-8.3) 01/01/24 17:00 Albumin 4.0 gm/dl (3.4-5.0) 01/01/24 17:00 Globulin 3.4 gm/dl (2.5-4.0) 01/01/24 17:00 Albumin/Globulin Ratio 1.2 (0.9-2) 01/01/24 17:[address] 01/01/24 16:43 CT SCAN OF THE RIGHT FOOT WITH IV CONTRAST CLINICAL HISTORY: Right foot infection. COMPARISON STUDY: Radiographs of the right foot dated 06/12/2021. CT scan of the right foot dated 07/02/2019. TECHNIQUE: CT scan of the right foot is performed from the distal tibia and fibular to the base of the foot. Images are reviewed in the axial, sagittal, and coronal planes. IV contrast was administered without complication. A dose lowering technique was utilized adhering to the principles of ALARA. Note that interpretation is significant with suboptimal without current plain film correlate. CT DOSE: 415.95 mGy.cm FINDINGS: The skeletal structures are osteopenic. There is erosive/destructive change involving the fifth metatarsal head/neck with presumed pathologic fracture. There is significant surrounding soft tissue edema and inflammation. A multiloculated fluid collection extending from the dorsum of the foot to the plantar aspect of the foot at this site around the fifth MTP is seen on sagittal image #11. This measures 5.4 x 2.5 x 2.0 cm in aggregate dimension. There is chronic deformity seen involving the second through fourth metatarsal necks. Severe degenerative change and erosion is again noted at the first metatarsophalangeal joint. Kydclyjm-[id number]-wqhlwv osteoarthritic change is noted in the midfoot. Milder soft tissue edema is seen throughout the remainder of the foot. The ankle mortise is maintained. There is generalized atrophy of the regional musculature. The Achilles tendon is intact as visualized. IMPRESSION: 1. Erosive/destructive change is seen involving the fifth metatarsal head/neck with presumed pathologic fracture. This is highly suspicious for osteomyelitis. 2. There is surrounding inflammation with a multiloculated fluid collection extending from the dorsum of the foot to the plantar aspect of the foot at this site. This is consistent with abscess. 3. No additional foci of osteomyelitis are suspected. 4. Additional foci of chronic/degenerative change throughout the foot as above. ACT 112: Negative or not required by law. Dictated: 01/01/2024 6:40 PM Transcribed: 01/01/2024 7:14 PM Manoj [id number] [email or web address] Electronically signed by: Ender Leon M.D. 01/01/2024 7:15 PM Code Status & VTE Plan VTE Prophylaxis Plan VTE Prophylaxis will be ordered: Yes
[2024-01-01] MEDS: BACLOFEN 10 MG TAB PO STA (21:45)
[2024-01-01] MEDS ORDERED: POLYETHYLENE (MIRALAX) 17 GM PACK PO PRN (22:09)
[2024-01-01] MEDS ORDERED: ACETAMINOPHEN 325 MG TAB PO PRN (22:09)
[2024-01-01] MEDS ORDERED: CARBOHYDRATES FOR HYPOGLYCEMIA PO PRN (22:09)
[2024-01-01] MEDS ORDERED: GLUCOSE 40% GEL 15 GM TUBE PO PRN (22:09)
[2024-01-01] MEDS ORDERED: GLUCOSE 10 TAB/TUBE PO PRN (22:09)
[2024-01-01] MEDS ORDERED: DEXTROSE 50% 50 ML SYRINGE IV PRN (22:09)
[2024-01-01] MEDS ORDERED: GLUCAGON FOR INJ 1 MG VIAL SQ PRN (22:09)
[2024-01-01] MEDS: INSULIN ASPART PER UNIT CHARGE SC SCH (22:56)
[2024-01-01] MEDS: SODIUM CHLORIDE 0.9% 1,000 ML IV SCH (23:11)
[2024-01-01] MEDS: rOPINIRole HCL 1 MG TABLET PO SCH (23:12)
[2024-01-02] MEDS: PIPERACILLIN/TAZOBACTAM 4.5 GM in DEXTROSE 5% MINI-B 100 ML IV SCH (02:34)
[2024-01-02] MEDS: VANCOMYCIN HCL 1,250 MG in SODIUM CHLORIDE 0.9% 250 ML IV SCH (04:00)
--- OUTSIDE RECORDS SUMMARY | 2024-01-02 04:24 | External Medical Summary | Summary of Care ---
Author Name Unknown Organization [facility] Address [address] [place] [address] Phone [phone] Care Team Providers Care Packaging Coordinator Name Role Phone Annabella Renteria PA-C Primary Care Provider [phone] Reason for Visit * Reason Onset Date Comments Precert Approved 11/22/2023 KRISTA Encounter Details Date Type Department Care Team (Late st Contact Info) Description 11/22/2023 Telephone Nutrition & Weight Management, [facility] [address] [place] [id number] Niya Guerrero PA-C [address] [place] [id number] Precert Approved (KRISTA) Allergies No known active allergiesdocumented as of this encounter (statuses as of 11/23/2023) Medications Medication Sig Dispensed Refills Start Date End Date Status Pregabalin 25 MG Oral Capsule (Lyrica)Indications: Restless legs syndrome,Spondylolis thesis, unspecified spinal region,Peripheral polyneuropathy 1 cap by mouth with 100 mg dose at bedtime for total of 125 mg at bedtime 90 Capsule 0 04/18/2022 Active Additional Information Patient not taking.Reported on 10/25/2023 metFORMIN HCl ER 500 MG Oral Tablet Extended Release 24 Hour (Glucophage XR)Indications:Hyper insulinemia TAKE TWO TABLETS BY MOUTH TWICE A DAY 360 Tablet 3 01/27/2023 Active Furosemide 20 MG Oral Tablet (Lasix)Indications:L eg edema TAKE 1 TABLET BY MOUTH IN THE MORNING. EVERY OTHER DAY FOR FLUID RETENTION. 45 Tablet 3 05/07/2023 Active rOPINIRole HCl 1 MG Oral Tablet (Requip)Indications: Restless legs syndrome TAKE ONE TABLET BY MOUTH IN THE MORNING AND ONE TABLET BEFORE BEDTIME 180 Tablet 2 06/01/2023 Active Rosuvastatin Calcium 40 MG Oral Tablet (Crestor)Indications :Dyslipidemia TAKE ONE TABLET BY MOUTH AT BEDTIME 90 Tablet 2 06/01/2023 Active Additional Information Patient not taking.Reported on 10/25/2023 Baclofen 20 MG Oral TabletIndications:Sylvia mbar radiculopathy,Neurop athy Take 1 Tablet by mouth in the morning and 1 Tablet before bedtime. 180 Tablet 2 06/01/2023 Active Fluticasone Propionate 50 MCG/ACT Nasal Suspension (Flonase)Indications :Dysfunction of right eustachian tube SPRAY 2 SPRAYS INTO EACH NOSTRIL IN THE MORNING 48 mL 1 07/14/2023 Active Etodolac 200 MG Oral Capsule (Lodine) Take 1 Capsule by mouth in the morning and 1 Capsule at noon and 1 Capsule before bedtime. 0 08/27/2023 Active Wegovy 2.4 MG/0.75ML Subcutaneous Solution Auto-injector (Semaglutide-Weight Management)Indicatio ns:Obesity, Class II, BMI 35-39.9, isolated Inject 2.4 mg under the skin once a week. 9 mL 0 11/21/2023 Active documented as of this encounter (statuses as of 11/23/2023) Active Problems Problem Noted Date Diagnosed Date Polyneuropathy, unspecified 09/08/2023 Tobacco use 04/12/2023 Metabolic syndrome 03/08/2023 Hyperinsulinemia 08/25/2022 Charcot's joint, right ankle and foot 08/25/2022 Restless legs syndrome 04/18/2022 Body mass index (BMI) of 40.0 to 44.9 in adult 0 12/13/2021 Overview: Per Obesity protocol Lumbar radiculopathy 02/01/2017 Spondylolisthesis 02/01/2017 Neck pain 08/22/2016 Lumbar spine pain 08/22/2016 documented as of this encounter (statuses as of 11/23/2023) Resolved Problems Problem Noted Date Diagnosed Date Resolved Date Preop examination 04/12/2023 09/08/2023 Corns and callosities 04/12/20232023 Type 2 diabetes mellitus wit h diabetic polyneuropathy 03/08/2023 03/08/2023 Corns and callosities 08/25/20222022 Type 2 diabetes mellitus wit h foot ulcer (CODE) 04/18/2022 04/18/2022 Fracture of acetabulum 03/24/201504/18 Fracture of clavicle 03/24/2015 022 documented as of this encounter (statuses as of 11/23/2023) Immunizations Name Administration Dates Next Due Seasonal Influenza, PF, 6 M & above, IM , (FluLaval or Fluzone) 06/13/2022 documented as of this encounter Social History Tobacco Use Types Packs/Day Years Used Date Smoking Tobacco: Every Day Cigarettes 0.5 30 Smokeless Tobacco: Current Snuff Alcohol Use Standard Drinks/Week Comments Yes 0 (1 standard drink = 0.6 oz pur e alcohol) 1-2 times a week PHQ-2 Answer Date Recorded PHQ Adult Total Score 0 05/04/2021 Hunger Vital Sign Answer Date Recorded Within the past 12 months, y ou worried that your food would run out before you got the money to buy more. Never true 04/04/20 23 Within the past 12 months, t he food you bought just didn't last and you didn't have money to get more. Never true 04/04/2023 Sex and Gender Information Value Date Recorded Sex Assigned at Male 04/04/2023 5:11 PM EDT Gender Identity Male 04/04/2023 5:11 PM EDT Sexual Orientation Straight 05/04/2021 7: 31 AM EDT Job Start Date Occupation Industry Not on file Not on file Not on file documented as of this encounter Functional Status Functional Status Response Date of Assess ment Are you deaf or do you have serious difficulty h earing? No 03/06/2015 Are you blind or do you have serious difficulty seeing, even when wearing glasses? No 03/06/2015 Do you have serious difficul ty walking or climbing stairs? (5 years old or older) No 03/06/2015 Do you have difficulty dress ing or bathing? (5 years old or older) No 03/06/2015 Because of a physical, menta l, or emotional condition, do you have difficulty doing errands alone such as visiting a doctor s office or shopping? (15 years old or older) No 03/06/20 15 Cognitive Status Response Date of Assessm ent Because of a physical, menta l, or emotional condition, do you have serious difficulty concentrating, remembering, or making decisions? (5 years old or older) No 03/06/2015 documented as of this encounter Miscellaneous Notes * Telephone Encounter - Marlen Schultz CPhT - 11/22/2023 9:01 AM EDT Pharmacy calling to inform doctor that the patient's insurance will not pay for this medication without a completed prior authorization. Did confirm this information with the pharmacy. Pt's current insurance information is as follows: Patient name: Donny Schuler ID number: [id number] BIN number: [id number] PC[place] number: [facility] Group number: [id number] Subscriber name: Donny Schuler Primary or Secondary Insurance:Primary Medication: [facility] family Reason for Request: [phone] Pharmacy and phone number: [facility] [phone] Rx plan and phone number: [facility] [phone] Is this a new medication for the patient? No. How did the patient obtain the medication on the lastfill? It was covered last time on this same insurance. What alternative medications does the pharmacy have in stock?: none Thank you, Marlen Schultz CphT [facility] Sample Case III [facility] (formerly Telepharmacy) 11/22/2023,9:02 AM documented in this encounter Plan of Treatment Upcoming Encounters Date Type Department Care Team (Late st Contact Info) Description 02/26/2024 8:00 AM EDT Nutrition Services Nutrition & Weight Management, [facility] [address] [place] [phone] Elena Aviles RDN [address] [place] [phone] 03/12/2024 7:40 AM EDT Office Visit Family Practice, [place] [address] [facility] [place] [phone] Annabella Renteria PA-C [address] [place] [address] 05/30/2024 8:20 AM EDT Telemedicine Nutrition & Weight Management, [facility] [address] [place] [address] Niya Guerrero PA-C [address] [place] [address] Health Maintenance Due Date Last Done Comments Pneumococcal Vaccine: Pediatrics (0 to 5 Years) and At-Risk Patients (6 to 64 Years) (1 of 2 - PCV) 1976 HIV Screening 1985 Hepatitis C Screening 1988 DTaP,Tdap,and Td Vaccines (1 - Tdap) 1989 Cologuard 11/16/2015 Colonoscopy 11/16/2015 Colorectal Cancer Screening 11/16/2015 Fecal Occult Blood Test 11/16/2015 Sigmoidoscopy 11/16/2015 Hepatitis B (2 of 2 - CpG 2-dose series) 09/18/2019 08/21/2019, 02/22/2019, 01/21/2019 Zoster Vaccines (1 of 2) 2020 Depression Screening 05/04/2022 05/04/2021 COVID-19 Vaccine (1 - 2022-24 season) 2023 Influenza Vaccine (FLU shot) (#1) 2023 06/13/2022, 08/21/2019, 07/03/2018 Diabetes Screening 08/30/2026 08/30/2023, 1 10/31/2022, 04/12/2023, Additional history exists Lipid Panel 08/30/2028 08/30/2023, 04/04, 04/30/2021 Diabetic Eye Exam Discontinued 04/10/2023, , 02/18/2021 GARDASIL-HPV IMMUNIZATION SERIES Aged Out No longer eligible based on patient's age to complete this topic MENINGOCOCCAL (MENACTRA/MENVEO) Aged Out No longer eligible based on patient's age to complete this topic documented as of this encounter Medical Devices Implanted Type Area Glass Ribbon Machine Operator Assistant Device Identifier Shelf Expiration Date Model / Serial / Lot Plate Lcp Pilon 3.5 7h 240.082 - [id number] Implanted:Qty: 1 on 03/09/2015 by Kraig Snyder MD at OR [facility] Left: Hip SYNTHES 240.082 / / Screw Selftap 3.5x40 204.840 - [id number] Implanted:Qty: 1 on 03/09/2015 by Kraig Snyder MD at OR [facility] Left: Hip SYNTHES 204.840 / / Screw Selftap 3.5x60 204.860 - [id number] Implanted:Qty: 1 on 03/09/2015 by Kraig Snyder MD at OR [facility] Left: Hip SYNTHES 204.860 / / Screw Selftap 3.5x38 204.838 - [id number] Implanted:Qty: 3 on 03/09/2015 by Kraig Snyder MD at OR [facility] Left: Hip SYNTHES 204.838 / / Screw Lock 3.5 10mm 212.101 - [id number] Implanted:Qty: 2 on 03/09/2015 by Kraig Snyder MD at OR [facility] Left: Hip SYNTHES 212.101 / / Screw Lock 3.5 12mm 212.102 - [id number] Implanted:Qty: 1 on 03/09/2015 by Kraig Snyder MD at OR [facility] Left: Hip SYNTHES 212.102 / / Screw Selftap 3.5x32 204.832 - [id number] Implanted:Qty: 1 on 03/09/2015 by Kraig Snyder MD at OR [facility] Left: Hip SYNTHES 204.832 / / Washer 13.0mm 219.99 - [id number] Implanted:Qty: 1 on 03/09/2015 by Kraig Snyder MD at OR [facility] Left: Hip SYNTHES 219.99 / / documented as of this encounter Advance Directives Latest Code Status on File Code Status Date Activated Date Inactivated Comments Full Code 03/06/2015 6:49 PM 03/12/2015 8:22 PM This or will reflects the patients wishes and were consensually agreed upon. Question Answer Comments Discussion of Advance Directives occurred with: Not Discussed Care Teams Packaging Coordinator Relationship Specialty Start Date End Date Annabella Renteria PA-C [address] [place] [address] PCP - General Physician Database Manager 06/07/22 documented as of this encounter
--- OUTSIDE RECORDS SUMMARY | 2024-01-02 04:24 | External Medical Summary | Summary of Care ---
Author Name Unknown Organization [facility] Address [address] [facility] [place] [address] Phone [phone] Care Team Providers Care Data Entry Technician Name Role Phone Annabella Renteria PA-C Primary Care Provider +1 [phone] Reason for Visit * Reason Onset Date Comments Precert Approved 11/22/2023 KRISTA Encounter Details Date Type Department Care Team (Late st Contact Info) Description 11/22/2023 Telephone Nutrition & Weight Management, [facility] [address] [place] [address] Niya Guerrero PA-C [address] [place] [address] Precert Approved (KRISTA) Allergies No known active [...] encounter Miscellaneous Notes * Telephone Encounter - Wilfred Pierce LPN - 11/23/2023 12:18 PM EDT Images from the original note were not included. Precert 11/23/2023 9:15 AM Malik Sanderson OSA - - Note: New or re-auth: Re-authorization Approved/Denied: Approved Drug Name and Formulation: WEGOVY 2.4 MG/0.75 ML PEN How Prescribed(directions/sig): Sig - Route: Inject 2.4 mg under the skin once a week. - Subcutaneous Day Supply: 9ML PER 84 DAYS Did you receive insurance information from outside the chart? No, received insurance information within the chart Valid auth start date: 11/22/2023 Valid auth end date: 05/24/2024 Rx Insurance Info: NANI MCCONNELL Reference #: [id number] Rx Benefits Verified through/on date: [facility] 11/22/2023 Referral (TE) received from: Prescribing Clinic Malik Sanderson Medication Sampler Ovens II 11/23/23,9:14 AM . Type Date User Summary Attachment Precert 11/22/2023 9:56 AM Malik Sanderson OSA - - Note: [facility] Authorization Submission Submission Information: Medication: WEGOVY 2.4 MG/0.75 ML PEN Portal used: BRYAN PA Insurance: [facility] Authorization #/Hernandez: [id number] * Telephone Encounter - Marlen Schultz CPhT - 11/22/2023 9:01 AM EDT Pharmacy calling to inform doctor that the patient's insurance will not pay for this medication without a completed prior authorization. Did confirm this information with the pharmacy. Pt's current insurance information is as follows: Patient name: Donny Schuler ID number: [id number] BIN number: [id number] PCN number: [facility] Group number: [id number] Subscriber name: Donny Schuler Primary or Secondary Insurance:Primary Medication: GHP family Reason for Request: [phone] Pharmacy and phone number: [facility] [phone] Rx plan and phone number: [facility] family [phone] Is this a new medication for the patient? No. How did the patient obtain the medication on the lastfill? It was covered last time on this same insurance. What alternative medications does the pharmacy have in stock?: none Thank you, Marlen Schultz CphT Wall Attendant III Centralized Clinical Pharmacy Services(CCPS) (formerly Telepharmacy) 11/22/2023,9:02 AM documented in this encounter Plan of Treatment Upcoming Encounters Date Type Department Care Team (Late st Contact Info) Description 02/26/2024 8:00 AM EDT Nutrition Services Nutrition & Weight Management, [facility] [address] [facility] [place] [address] Elena Aviles RDN [address] [facility] [place] [address] 03/12/2024 7:40 AM EDT Office Visit [facility] [address] [place] [phone] Annabella Renteria PA-C [address] [place] [address] 05/30/2024 8:20 AM EDT Telemedicine Nutrition & Weight Management, [facility] [address] [place] [address] Niya Guerrero PA-C [address] [place] [address] Health Maintenance Due Date Last Done Comments [...] Screening 05/04/2022 05/04/2021 COVID-19 Vaccine (1 - 2022- season) 2023 Influenza Vaccine (FLU shot) (#1) [...] this encounter Medical Devices Implanted Type Area Auto Customize Painter Device Identifier Shelf Expiration Date Model / Serial / Lot Plate Lcp Pilon 3.5 7h 240.082 - [id number] Implanted:Qty: 1 on 03/09/2015 by Kraig Snyder MD at OR [facility] Left: Hip SYNTHES 240.082 / / Screw Selftap 3.5x40 204.840 - [id number] Implanted:Qty: 1 on 03/09/2015 by Kraig Snyder MD at OR [facility] Left: Hip SYNTHES 204.840 / / Screw Selftap 3.5x60 204.860 - [id number] Implanted:Qty: 1 on 03/09/2015 by Kraig Snyder MD at OR [facility] Left: Hip SYNTHES 204.860 / / Screw Selftap 3.5x38 204.838 - [id number] Implanted:Qty: 3 on 03/09/2015 by Kraig Snyder MD at OR [facility] Left: Hip SYNTHES 204.838 / / Screw Lock 3.5 10mm 212.101 - [id number] Implanted:Qty: 2 on 03/09/2015 by Kraig Snyder MD at OR [facility] Left: Hip SYNTHES 212.101 / / Screw Lock 3.5 12mm 212.102 - [id number] Implanted:Qty: 1 on 03/09/2015 by Kraig Snyder MD at OR [facility] Left: Hip SYNTHES 212.102 / / Screw Selftap 3.5x32 204.832 - [id number] Implanted:Qty: 1 on 03/09/2015 by Kraig Snyder MD at OR [facility] Left: Hip SYNTHES 204.832 / / Washer 13.0mm 219.99 - [id number] Implanted:Qty: 1 on 03/09/2015 by Kraig Snyder MD at OR [facility] Left: Hip SYNTHES 219.99 / / documented as of this encounter Advance Directives Latest Code Status on File Code Status Date Activated Date Inactivated Comments Full Code 03/06/2015 6:49 PM 03/12/2015 8:22 PM This or will reflects the patients wishes and were consensually agreed upon. Question Answer Comments Discussion of Advance Directives occurred with: Not Discussed Care Teams Data Entry Technician Relationship Specialty Start Date End Date Annabella Renteria PA-C [address] [place] [address] PCP - General Physician Furniture Packer 06/07/22 documented as of this encounter
--- OUTSIDE RECORDS SUMMARY | 2024-01-02 04:24 | External Medical Summary | Summary of Care ---
Author Name Unknown Organization [facility] Address [address] [facility] [place] [address] Phone [phone] Care Team Providers Care Larriman Name Role Phone Annabella Renteria PA-C Primary Care Provider [phone] [phone] Reason for Visit * Reason Onset Date Comments Precert Approved 11/22/2023 KRISTA Encounter Details Date Type Department Care Team (Late st Contact Info) Description 11/22/2023 Telephone Nutrition & Weight Management, [facility] [address] [place] [address] Niya Guerrero PA-C [address] [place] [address] Precert Approved (KRISTA) Allergies No known active allergiesdocumented as of this encounter (statuses as of 11/29/2023) Medications Medication Sig Dispensed Refills Start Date [...] as of this encounter (statuses as of 11/29/2023) Active Problems Problem Noted Date Diagnosed Date [...] as of this encounter (statuses as of 11/29/2023) Resolved Problems Problem Noted Date Diagnosed Date Resolved Date Preop examination 04/12/2023 09/08/2023 Corns and callosities 04/12/20232023 Type 2 diabetes mellitus wit h diabetic polyneuropathy 03/08/2023 03/08/2023 Corns and callosities 08/25/20222022 Type 2 diabetes mellitus wit h foot ulcer (CODE) 04/18/2022 04/18/2022 Fracture of acetabulum 03/24/201504/18 Fracture of clavicle 03/24/2015 022 documented as of this encounter (statuses as of 11/29/2023) Immunizations Name Administration Dates Next Due Seasonal [...] Telephone Encounter - Wilfred Pierce LPN - 11/29/2023 8:45 AM EDT Left message for patient to return call. * Telephone Encounter - Wilfred Pierce LPN - 11/28/2023 10:53 AM EDT Left message for patient to return call. * Telephone Encounter - Wilfred Pierce LPN [...] auth end date: 05/24/2024 Rx Insurance Info: [facility] [place] Reference #: [id number] Rx Benefits Verified through/on date: EPIC 11/22/2023 Referral (TE) received from: Prescribing Clinic Malik Sanderson Medication Shirt Ironer Supervisor II 11/23/23,9:14 AM . Type Date User Summary Attachment Precert 11/22/2023 9:56 AM Malik Sanderson OSA - - Note: [facility] Authorization Submission Submission Information: Medication: WEGOVY 2.4 MG/0.75 ML PEN Portal used: PROMPT PA Insurance: [facility] Authorization #/Hernandez: [id number] * Telephone Encounter - Marlen Schultz CPhT - 11/22/2023 9:01 AM EDT Pharmacy calling to inform doctor that the patient's insurance will not pay for this medication without a completed prior authorization. Did confirm this information with the pharmacy. Pt's current insurance information is as follows: Patient name: Donny Schuler ID number: [id number] BIN number: [id number] PCN number: [facility] Group number: [id number] Subscriber name: Donny Schuler Primary or Secondary Insurance:Primary Medication: [facility] family Reason for Request: [phone] Pharmacy and phone number: [facility] [phone] Rx plan and phone number: [facility] [phone] Is this a new medication for the patient? No. How did the patient obtain the medication on the lastfill? It was covered last time on this same insurance. What alternative medications does the pharmacy have in stock?: none Thank you, Marlen Schultz CphT Hat Lining Paster III Centralized Clinical Pharmacy Services(CCPS) (formerly Telepharmacy) 11/22/2023,9:02 AM documented in this encounter Plan of Treatment Upcoming Encounters Date Type Department Care Team (Late st Contact Info) Description 02/26/2024 8:00 AM EDT Nutrition Services Nutrition & Weight Management, [facility] [address] [place] [address] Elena Aviles RDN [address] [place] [address] 03/12/2024 7:40 AM EDT Office Visit Family [facility] [place] [address] [facility] [place] [address] Annabella Renteria PA-C [address] [place] [address] 05/30/2024 8:20 AM EDT Telemedicine Nutrition & Weight Management, [facility] [address] [facility] [place] [address] Niya Guerrero PA-C [address] [place] [address] Health Maintenance Due Date Last Done Comments [...] this encounter Medical Devices Implanted Type Area Reception Clerk Device Identifier Shelf Expiration Date Model / Serial / Lot Plate Lcp Pilon 3.5 7h 240.082 - [id number] Implanted:Qty: 1 on 03/09/2015 by Kraig Snyder MD at OR [facility] Left: Hip SYNTHES 240.082 / / Screw Selftap 3.5x40 204.840 - [id number] Implanted:Qty: 1 on 03/09/2015 by Kraig Snyder MD at [facility] Left: Hip SYNTHES 204.840 / / Screw Selftap 3.5x60 204.860 - [id number] Implanted:Qty: 1 on 03/09/2015 by Kraig Snyder MD at OR [facility] Left: Hip SYNTHES 204.860 / / Screw Selftap 3.5x38 204.838 - [id number] Implanted:Qty: 3 on 03/09/2015 by Kraig Snyder MD at OR [facility] Left: Hip SYNTHES 204.838 / / Screw Lock 3.5 10mm 212.101 - [id number] Implanted:Qty: 2 on 03/09/2015 by Kraig Snyder MD at OR [facility] Left: Hip SYNTHES 212.101 / / Screw Lock 3.5 12mm 212.102 - [id number] Implanted:Qty: 1 on 03/09/2015 by Kraig Snyder MD at OR [facility] Left: Hip SYNTHES 212.102 / / Screw Selftap 3.5x32 204.832 - [id number] Implanted:Qty: 1 on 03/09/2015 by Kraig Snyder MD at OR [facility] Left: Hip SYNTHES 204.832 / / Washer 13.0mm 219.99 - [id number] Implanted:Qty: 1 on 03/09/2015 by Kraig Snyder MD at OR [facility] Left: Hip SYNTHES 219.99 / / documented as of this encounter Advance Directives Latest Code Status on File Code Status Date Activated Date Inactivated Comments Full Code 03/06/2015 6:49 PM 03/12/2015 8:22 PM This or will reflects the patients wishes and were consensually agreed upon. Question Answer Comments Discussion of Advance Directives occurred with: Not Discussed Care Teams Larriman Relationship Specialty Start Date End Date Annabella Renteria PA-C [address] [place] [address] PCP - General Physician Medicare Coordinator 06/07/22 documented as of this encounter
--- OUTSIDE RECORDS SUMMARY | 2024-01-02 04:24 | External Medical Summary | Summary of Care ---
Author Name Unknown Organization [facility] Address [address] [place] [address] Phone [phone] Care Team Providers Care Slag Dumper Name Role Phone Annabella Renteria PA-C Primary Care Provider [phone] [phone] Reason for Visit * Reason Comments Medication Refill Encounter Details Date Type Department Care Team (Late st Contact Info) Description 11/24/2023 Refill [facility] [address] [place] [address] Annabella Renteria PA-C [address] [place] [address] Restless legs syndrome Allergies No known active allergiesdocumented as of this encounter (statuses as of 11/24/2023) Medications Medication Sig Dispensed Refills Start Date [...] as of this encounter (statuses as of 11/24/2023) Active Problems Problem Noted Date Diagnosed Date [...] as of this encounter (statuses as of 11/24/2023) Resolved Problems Problem Noted Date Diagnosed Date Resolved Date Preop examination 04/12/2023 09/08/2023 Corns and callosities 04/12/20232023 Type 2 diabetes mellitus wit h diabetic polyneuropathy 03/08/2023 03/08/2023 Corns and callosities 08/25/20222022 Type 2 diabetes mellitus wit h foot ulcer (CODE) 04/18/2022 04/18/2022 Fracture of acetabulum 03/24/201504/18 Fracture of clavicle 03/24/2015 022 documented as of this encounter (statuses as of 11/24/2023) Immunizations Name Administration Dates Next Due Seasonal [...] Telephone Encounter - Marlen Schultz CPhT - 11/24/2023 3:54 PM EDTNo prescriptions requested or ordered in this encounter documented in this encounter Plan of Treatment Upcoming Encounters Date Type Department Care Team (Late st Contact Info) Description 02/26/2024 8:00 AM EDT Nutrition Services Nutrition & Weight Management, [facility] [address] [address] Elena Aviles RDN [address] [place] [address] 03/12/2024 7:40 AM EDT Office Visit [place] [address] [facility] [place] [phone] Annabella Renteria PA-C [address] [facility] [place] [address] 05/30/2024 8:20 AM EDT Telemedicine Nutrition & Weight Management, [facility] [address] [place] [address] Niya Guerrero PA-C [address] [place] [address] Health Maintenance Due Date Last Done Comments [...] Screening 05/04/2022 05/04/2021 COVID-19 Vaccine (1 - season) 2023 Influenza Vaccine (FLU shot) (#1) [...] this encounter Medical Devices Implanted Type Area Pan Washer Device Identifier Shelf Expiration Date Model / Serial / Lot Plate Lcp Pilon 3.5 7h 240.082 - [id number] Implanted:Qty: 1 on 03/09/2015 by Kraig Snyder MD at OR [facility] Left: Hip SYNTHES 240.082 / / Screw Selftap 3.5x40 204.840 - [id number] Implanted:Qty: 1 on 03/09/2015 by Kraig Snyder MD at OR [facility] Left: Hip SYNTHES 204.840 / / Screw Selftap 3.5x60 204.860 - [id number] Implanted:Qty: 1 on 03/09/2015 by Kraig Snyder MD at OR [facility] Left: Hip SYNTHES 204.860 / / Screw Selftap 3.5x38 204.838 - [id number] Implanted:Qty: 3 on 03/09/2015 by Kraig Snyder MD at OR [facility] Left: Hip SYNTHES 204.838 / / Screw Lock 3.5 10mm 212.101 - [id number] Implanted:Qty: 2 on 03/09/2015 by Kraig Snyder MD at OR [facility] Left: Hip SYNTHES 212.101 / / Screw Lock 3.5 12mm 212.102 - [id number] Implanted:Qty: 1 on 03/09/2015 by Kraig Snyder MD at OR [facility] Left: Hip SYNTHES 212.102 / / Screw Selftap 3.5x32 204.832 - [id number] Implanted:Qty: 1 on 03/09/2015 by Kraig Snyder MD at OR [facility] Left: Hip SYNTHES 204.832 / / Washer 13.0mm 219.99 - [id number] Implanted:Qty: 1 on 03/09/2015 by Kraig Snyder MD at OR [facility] Left: Hip SYNTHES 219.99 / / documented as of this encounter Visit Diagnoses Diagnosis Restless legs syndrome Restless legs syndrome (RLS) documented in this encounter Advance Directives Latest Code Status on File Code Status Date Activated Date Inactivated Comments Full Code 03/06/2015 6:49 PM 03/12/2015 8:22 PM This or will reflects the patients wishes and were consensually agreed upon. Question Answer Comments Discussion of Advance Directives occurred with: Not Discussed Care Teams Slag Dumper Relationship Specialty Start Date End Date Annabella Renteria PA-C [address] [place] [address] PCP - General Physician Manager Wholesale 06/07/22 documented as of this encounter
--- OUTSIDE RECORDS SUMMARY | 2024-01-02 04:24 | External Medical Summary | Summary of Care ---
Author Name Unknown Organization [facility] Address [address] [facility] [place] [address] Phone [phone] Care Team Providers Care Rail Switch Operator Name Role Phone Annabella Renteria PA-C Primary Care Provider [phone] [phone] Reason for Visit * Reason Onset Date Comments Precert Approved 11/22/2023 KRISTA Encounter Details Date Type Department Care Team (Late st Contact Info) Description 11/22/2023 Telephone Nutrition & Weight Management, [facility] [address] [place] [address] Niya Guerrero PA-C [address] [place] [address] Precert Approved (KRISTA) Allergies No known active allergiesdocumented as of this encounter (statuses as of 11/28/2023) Medications Medication Sig Dispensed Refills Start Date [...] as of this encounter (statuses as of 11/28/2023) Active Problems Problem Noted Date Diagnosed Date [...] as of this encounter (statuses as of 11/28/2023) Resolved Problems Problem Noted Date Diagnosed Date Resolved Date Preop examination 04/12/2023 09/08/2023 Corns and callosities 04/12/20232023 Type 2 diabetes mellitus wit h diabetic polyneuropathy 03/08/2023 03/08/2023 Corns and callosities 08/25/20222022 Type 2 diabetes mellitus wit h foot ulcer (CODE) 04/18/2022 04/18/2022 Fracture of acetabulum 03/24/201504/18 Fracture of clavicle 03/24/2015 022 documented as of this encounter (statuses as of 11/28/2023) Immunizations Name Administration Dates Next Due Seasonal [...] Rx Insurance Info: NANI MCCONNELL Reference #: [id number] Rx Benefits Verified through/on date: EPIC 11/22/2023 Referral (TE) received from: Prescribing Clinic Malik Sanderson Medication Holter Technician II 11/23/23,9:14 AM . Type Date User Summary Attachment Precert 11/22/2023 9:56 AM Malik Sanderson OSA - - Note: [facility] Authorization Submission Submission Information: Medication: WEGOVY 2.4 MG/0.75 ML PEN Portal used: BRYAN MCCONNELL Insurance: [facility] Authorization #/Hernandez: [id number] * Telephone Encounter - Marlen Schultz CPhT - 11/22/2023 9:01 AM EDT Pharmacy calling to inform doctor that the patient's insurance will not pay for this medication without a completed prior authorization. Did confirm this information with the pharmacy. Pt's current insurance information is as follows: Patient name: Donny Schuler ID number: [id number] BIN number: [id number] PCN number: [facility] Group number: [id number] Subscriber name: Donny Schuler Primary or Secondary Insurance:Primary Medication: GHP family Reason for Request: [phone] Pharmacy and phone number: [facility] [phone] Rx plan and phone number: [facility] family [phone] Is this a new medication for the patient? No. How did the patient obtain the medication on the lastfill? It was covered last time on this same insurance. What alternative medications does the pharmacy have in stock?: none Thank you, Marlen Schultz CphT Nozzle And Sleeve Worker III Centralized Clinical Pharmacy Services(CCPS) (formerly Telepharmacy) 11/22/2023,9:02 AM documented in this encounter Plan of Treatment Upcoming Encounters Date Type Department Care Team (Late st Contact Info) Description 02/26/2024 8:00 AM EDT Nutrition Services Nutrition & Weight Management, [facility] [address] [place] [address] Elena Aviles RDN [address] [place] [address] 03/12/2024 7:40 AM EDT [address] [address] Annabella Renteria PA-C [address] [place] [address] 05/30/2024 8:20 AM EDT Telemedicine Nutrition & Weight Management, [facility] [address] [place] [address] Niya Guerrero PA-C [address] [place] [address] Health Maintenance Due Date Last Done Comments [...] this encounter Medical Devices Implanted Type Area Saw Runner Device Identifier Shelf Expiration Date Model / Serial / Lot Plate Lcp Pilon 3.5 7h 240.082 - [id number] Implanted:Qty: 1 on 03/09/2015 by Kraig Snyder MD at OR [facility] Left: Hip SYNTHES 240.082 / / Screw Selftap 3.5x40 204.840 - [id number] Implanted:Qty: 1 on 03/09/2015 by Kraig Snyder MD at OR [facility] Left: Hip SYNTHES 204.840 / / Screw Selftap 3.5x60 204.860 - [id number] Implanted:Qty: 1 on 03/09/2015 by Kraig Snyder MD at OR [facility] Left: Hip SYNTHES 204.860 / / Screw Selftap 3.5x38 204.838 - [id number] Implanted:Qty: 3 on 03/09/2015 by Kraig Snyder MD at OR [facility] Left: Hip SYNTHES 204.838 / / Screw Lock 3.5 10mm 212.101 - [id number] Implanted:Qty: 2 on 03/09/2015 by Kraig Snyder MD at OR [facility] Left: Hip SYNTHES 212.101 / / Screw Lock 3.5 12mm 212.102 - [id number] Implanted:Qty: 1 on 03/09/2015 by Kraig Snyder MD at OR [facility] Left: Hip SYNTHES 212.102 / / Screw Selftap 3.5x32 204.832 - [id number] Implanted:Qty: 1 on 03/09/2015 by Kraig Snyder MD at OR [facility] Left: Hip SYNTHES 204.832 / / Washer 13.0mm 219.99 - [id number] Implanted:Qty: 1 on 03/09/2015 by Kraig Snyder MD at OR [facility] Left: Hip SYNTHES 219.99 / / documented as of this encounter Advance Directives Latest Code Status on File Code Status Date Activated Date Inactivated Comments Full Code 03/06/2015 6:49 PM 03/12/2015 8:22 PM This or will reflects the patients wishes and were consensually agreed upon. Question Answer Comments Discussion of Advance Directives occurred with: Not Discussed Care Teams Rail Switch Operator Relationship Specialty Start Date End Date Annabella Renteria PA-C [address] [place] [address] PCP - General Physician Load Dropper 06/07/22 documented as of this encounter
--- OUTSIDE RECORDS SUMMARY | 2024-01-02 04:25 | External Medical Summary | Summary of Care ---
Author Name Unknown Organization [facility] Address [address] [facility] [place] [address] Phone [phone] Care Team Providers Care Linux Vmware Administrator Name Role Phone Annabella Renteria PA-C Primary Care Provider [phone] Reason for Visit * Reason Onset Date Comments Appointment 11/09/2023 MRI Encounter Details Date Type Department Care Team (Late st Contact Info) Description 11/09/2023 Telephone Radiology [address] [facility] [place] [id number] Betty Reddy, RT (R) Appointment (/MRI) Allergies No known active allergiesdocumented as of this encounter (statuses as of 11/09/2023) Medications Medication Sig Dispensed Refills Start Date End Date Status Pregabalin 25 MG Oral Capsule (Lyrica)Indications: Restless legs syndrome,Spondylolis thesis, unspecified spinal region,Peripheral polyneuropathy 1 cap by mouth with 100 mg dose at bedtime for total of 125 mg at bedtime 90 Capsule 0 04/18/2022 Active Additional Information Patient not taking.Reported on 10/25/2023 Wegovy 1.7 MG/0.75ML Subcutaneous Solution Auto-injector (Semaglutide-Weight Management)Indicatio ns:Morbid obesity due to excess calories (HCC) Inject 1.7 mg under the skin once a week for 28 days. Do not start before February 14, 2023. 3 mL 0 02/14/2023 Active metFORMIN HCl ER 500 MG Oral Tablet Extended Release 24 Hour (Glucophage XR)Indications:Hyper insulinemia TAKE TWO TABLETS BY MOUTH TWICE A DAY 360 Tablet 3 01/27/2023 4 Active Furosemide 20 MG Oral Tablet (Lasix)Indications:L eg edema TAKE 1 TABLET BY MOUTH IN THE MORNING. EVERY OTHER DAY FOR FLUID RETENTION. 45 Tablet 3 05/07/2023 Active Wegovy 2.4 MG/0.75ML Subcutaneous Solution Auto-injector (Semaglutide-Weight Management) Inject 2.4 mg under the skin once a week. 9 mL 2 05/22/2023 Active rOPINIRole HCl 1 MG Oral Tablet (Requip)Indications: Restless legs syndrome TAKE ONE TABLET BY MOUTH IN THE MORNING AND ONE TABLET BEFORE BEDTIME 180 Tablet 2 06/01/2023 4 Active Rosuvastatin Calcium 40 MG Oral Tablet (Crestor)Indications :Dyslipidemia TAKE ONE TABLET BY MOUTH AT BEDTIME 90 Tablet 2 06/01/2023 4 Active Additional Information Patient not taking.Reported on [...] 1 Capsule before bedtime. 0 08/27/2023 Active documented as of this encounter (statuses as of 11/09/2023) Active Problems Problem Noted Date Diagnosed Date [...] as of this encounter (statuses as of 11/09/2023) Resolved Problems Problem Noted Date Diagnosed Date Resolved Date Preop examination 04/12/2023 09/08/2023 Corns and callosities 04/12/20232023 Type 2 diabetes mellitus wit h diabetic polyneuropathy 03/08/2023 03/08/2023 Corns and callosities 08/25/20222022 Type 2 diabetes mellitus wit h foot ulcer (CODE) 04/18/2022 04/18/2022 Fracture of acetabulum 03/24/201504/18 Fracture of clavicle 03/24/2015 022 documented as of this encounter (statuses as of 11/09/2023) Immunizations Name Administration Dates Next Due Seasonal [...] encounter Miscellaneous Notes * Telephone Encounter - Betty Reddy RT (R) - 11/09/2023 12:47 PM EST Name: Donny Schuler Do you have any of the following: Pacemaker, stents, heart valves, aneurysm clips? No Have you ever worked with metal or have you ever gotten metal in your eyes? No Have you had a colonoscopy in the last 30 days? No On dialysis? No Do you have any dermals or body piercing's? No Do you wear an insulin pump or diabetic monitor? No No new tattoos Knows to check in at [address] (R) documented in this encounter Plan of Treatment Upcoming Encounters Date Type Department Care Team (Late st Contact Info) Description 11/11/2023 8:30 AM EST Imaging Radiology [facility] 1st Floor, [place] [address] [place] [address] 11/21/2023 8:40 AM EDT Telemedicine Nutrition & Weight Management, [facility] [address] [address] Niya Guerrero PA-C [address] [place] [address] 02/26/2024 8:00 AM EDT Nutrition Services Nutrition & Weight Management, [facility] [address] [place] [address] Elena Aviles, RDN [address] [place] [address] 03/12/2024 7:40 AM EDT Office Visit [facility] [address] [place] [id number] Annabella Renteria PA-C [address] [place] [address] Health Maintenance Due Date Last Done Comments [...] 2020 Depression Screening 05/04/2022 05/04/2021 COVID-19 Vaccine ( - 24 season) 2023 Influenza Vaccine (FLU shot) (#1) [...] this encounter Medical Devices Implanted Type Area Metal Bonding Assembler Device Identifier Shelf Expiration Date Model / Serial / Lot Plate Lcp Pilon 3.5 7h 240.082 - [id number] Implanted:Qty: 1 on 03/09/2015 by Kraig Snyder MD at [facility] Left: Hip SYNTHES 240.082 / / Screw Selftap 3.5x40 204.840 - [id number] Implanted:Qty: 1 on 03/09/2015 by Kraig Snyder MD at [facility] Left: Hip SYNTHES 204.840 / / Screw Selftap 3.5x60 204.860 - [id number] Implanted:Qty: 1 on 03/09/2015 by Kraig Snyder MD at [facility] Left: Hip SYNTHES 204.860 / / Screw Selftap 3.5x38 204.838 - [id number] Implanted:Qty: 3 on 03/09/2015 by Kraig Snyder MD at [facility] Left: Hip SYNTHES 204.838 / / Screw Lock 3.5 10mm 212.101 - [id number] Implanted:Qty: 2 on 03/09/2015 by Kraig Snyder MD at [place] [facility] Left: Hip SYNTHES 212.101 / / Screw Lock 3.5 12mm 212.102 - [id number] Implanted:Qty: 1 on 03/09/2015 by Kraig Snyder MD at [place] [facility] Left: Hip SYNTHES 212.102 / / Screw Selftap 3.5x32 204.832 - [id number] Implanted:Qty: 1 on 03/09/2015 by Kraig Snyder MD at [place] [facility] Left: Hip SYNTHES 204.832 / / Washer 13.0mm 219.99 - [id number] Implanted:Qty: 1 on 03/09/2015 by Kraig Snyder MD at [place] [facility] Left: Hip SYNTHES 219.99 / / documented as of this encounter Advance Directives Latest Code Status on File Code Status Date Activated Date Inactivated Comments Full Code 03/06/2015 6:49 PM 03/12/2015 8:22 PM This or will reflects the patients wishes and were consensually agreed upon. Question Answer Comments Discussion of Advance Directives occurred with: Not Discussed Care Teams Linux Vmware Administrator Relationship Specialty Start Date End Date Annabella Renteria PA-C [address] [place] [id number] PCP - General Physician Header Up 06/07/22 documented as of this encounter
--- OUTSIDE RECORDS SUMMARY | 2024-01-02 04:25 | External Medical Summary | Summary of Care ---
Author Name Unknown Organization [facility] Address [address] [facility] [place] [address] Phone [phone] Care Team Providers Care Chemist Name Role Phone Annabella Renteria PA-C Primary Care Provider [phone] Encounter Details Date Type Department Care Team (Late st Contact Info) Description 11/21/2023 8:40 AM EDT Telemedicine Nutrition & Weight Management, [facility] [address] [place] [address] Niya Guerrero PA-C [address] [place] [address] Obesity, Class II, BMI 35-39.9, isolated* Allergies No known active allergiesdocumented as of this encounter (statuses as of 11/21/2023) Medications Medication Sig Dispensed Refills Start Date End Date Status Pregabalin 25 MG Oral Capsule (Lyrica)Indications :Restless legs syndrome,Spondyloli sthesis, unspecified spinal region,Peripheral polyneuropathy 1 cap by mouth with 100 mg dose at bedtime for total of 125 mg at bedtime 90 Capsule 0 2 Active Additional Information Patient not taking.Reported on 10/25/2023 metFORMIN HCl ER 500 MG Oral Tablet Extended Release 24 Hour (Glucophage XR)Indications:Hype rinsulinemia TAKE TWO TABLETS BY MOUTH TWICE A DAY 360 Tablet 3 3 02/24/20 24 Active Furosemide 20 MG Oral Tablet (Lasix)Indications: Leg edema TAKE 1 TABLET BY MOUTH IN THE MORNING. EVERY OTHER DAY FOR FLUID RETENTION. 45 Tablet 3 3 Active rOPINIRole HCl 1 MG Oral Tablet (Requip)Indications :Restless legs syndrome TAKE ONE TABLET BY MOUTH IN THE MORNING AND ONE TABLET BEFORE BEDTIME 180 Tablet 2 3 05/31/20 24 Active Rosuvastatin Calcium 40 MG Oral Tablet (Crestor)Indication s:Dyslipidemia TAKE ONE TABLET BY MOUTH AT BEDTIME 90 Tablet 2 3 05/31/20 24 Active Additional Information Patient not taking.Reported on 10/25/2023 Baclofen 20 MG Oral TabletIndications:L umbar radiculopathy,Neuro joanna Take 1 Tablet by mouth in the morning and 1 Tablet before bedtime. 180 Tablet 2 3 Active Fluticasone Propionate 50 MCG/ACT Nasal Suspension (Flonase)Indication s:Dysfunction of right eustachian tube SPRAY 2 SPRAYS INTO EACH NOSTRIL IN THE MORNING 48 mL 1 3 Active Etodolac 200 MG Oral Capsule (Lodine) Take 1 Capsule by mouth in the morning and 1 Capsule at noon and 1 Capsule before bedtime. 0 3 Active Wegovy 2.4 MG/0.75ML Subcutaneous Solution Auto-injector (Semaglutide-Weight Management)Indicati ons:Obesity, Class II, BMI 35-39.9, isolated Inject 2.4 mg under the skin once a week. 9 mL 0 4 Active Wegovy 1.7 MG/0.75ML Subcutaneous Solution Auto-injector (Semaglutide-Weight Management)Indicati ons:Morbid obesity due to excess calories (HCC) Inject 1.7 mg under the skin once a week for 28 days. Do not start before February 14, 2023. 3 mL 0 3 11/21/19 24 Discontinued Wegovy 2.4 MG/0.75ML Subcutaneous Solution Auto-injector (Semaglutide-Weight Management) Inject 2.4 mg under the skin once a week. 9 mL 2 3 11/21/19 24 Discontinued documented as of this encounter (statuses as of 11/21/2023) Active Problems Problem Noted Date Diagnosed Date [...] as of this encounter (statuses as of 11/21/2023) Resolved Problems Problem Noted Date Diagnosed Date Resolved Date Preop examination 04/12/2023 09/08/2023 Corns and callosities 04/12/20232023 Type 2 diabetes mellitus wit h diabetic polyneuropathy 03/08/2023 03/08/2023 Corns and callosities 08/25/20222022 Type 2 diabetes mellitus wit h foot ulcer (CODE) 04/18/2022 04/18/2022 Fracture of acetabulum 03/24/201504/18 Fracture of clavicle 03/24/2015 022 documented as of this encounter (statuses as of 11/21/2023) Immunizations Name Administration Dates Next Due Seasonal [...] No 03/06/2015 documented as of this encounter Progress Notes * Niya Guerrero PA-C - 11/21/2023 8:45 AM EDT [facility] Referring Physician: Darren Reece MD Source of information: Patient Available records reviewed: Recent provider visits and Labs Reason for Referral: Weight Management. Donny Schuler is a 53 year old patient with a past medical history for: Past Medical History: Diagnosis Date Bilateral carpal tunnel syndrome Hyperinsulinemia Low back pain Neuropathy Patient Active Problem List Diagnosis Code Neck pain M54.2 Lumbar spine pain M54.50 Lumbar radiculopathy M54.16 Spondylolisthesis M43.10 Body mass index (BMI) of 40.0 to 44.9 in adult (HCC) Z68.41 Restless legs syndrome G25.81 Hyperinsulinemia E16.1 Charcot's joint, right ankle and foot M14.671 Metabolic syndrome E88.810 Tobacco use Z72.0 Polyneuropathy, unspecified G62.9 who presents to the [facility] for further recommendations. HPI: The patient suffers from Morbid obesity Patient is interested in the following treatment options for obesity: medical management. Initial visit 07/07/21 weight at that time was 349 Weight today is 303 Last office visit 05/22/23 weight has +3 pounds since last visit Weight has decreased -46 pounds since initial visit (13% body weight loss) Previous Weight Management Interventions: The patient has tried weight loss in the past without significant intermediate success. Previous interventions: Self-directed. 11/21/2023 -telemed wegovy check Valid auth start date: 04/27/2023 Valid auth end date: 10/28/2023 303 10/25/23 -4 m dietary follow up -Wt is up since MARK, was on steroids for back pain -Off cholesterol meds to assess impact to inflammation/joint pain -Has been off of work for over a month, kids and grand kids have been sick, life has been stressful 05/22/2023 -wegovy 2.4mg weekly -weight today 300 -doing really well, tolerating wegovy 01/17/2023 -started wegovy at 0.5mg and had some diarrhea -didn't get any refills and went back to trulicity -diet has been off-- some snacking 12/14/22 -[address] -Switched to wegovy .5 mg, not noticing any effect to appetite -Everyone in the home is sick, is recovering from RYGB revision surgery -Reporting some nervous eating with 's surgery and finances/work -Work has been slow for the past two months -Experiencing cravings ~2-3 hrs after meals, advised to have more protein or fiber, should notice cravings decrease as wegovy dose increases 10/17/22 -here for follow up -is on trulicity 09/14/22 -[address] -Up a few pounds resulting from a recent hunting trip -On trulicity 1.5 -He and provider discussed switching to wegovy 08/16/22 -here for follow up -tolerating trulicity 1.5mg weekly -no change in medications or medical history otherwise Weight history: Wt Readings from Last 8 Encounters: 10/25/23 (!) 139.9 kg (308 lb 8 oz) 09/08/23 (!) 137.7 kg (303 lb 9.6 oz) 08/30/23 (!) 138.3 kg (305 lb) 10/18/23 (!) 137.8 kg (303 lb 12.8 oz) 04/24/23 (!) 138.7 kg (305 lb 12.8 oz) 04/12/23 (!) 142.2 kg (313 lb 8 oz) 03/20/23 (!) 143.3 kg (316 lb) 03/08/23 (!) 149.2 kg (329 lb) Current Diet: Breakfast: 4-6 eggs with meat 4 pc toast Snacks: protein shake or bar Lunch: sandwich or soup fruit veg Snacks: protein shake or bar fruit/veg Dinner: meat veg starch Snacks: protein shake or bar fruit veg Drinks: water Alcohol: None Snacking on chips and snack cakes from stress-- getting a little bit better-- having fruits or protein bars Activity: Works construction Past Medical History: Diagnosis Date Bilateral carpal tunnel syndrome Hyperinsulinemia Low back pain Neuropathy Past Surgical History: Procedure Laterality Date CLAVICLE FRACTURE W/ INTERNAL FIXATION Left 03/09/2015 OPEN TREATMENT CLAVICLE FRACTURE performed by Kraig Snyder MD at [facility] REPAIR HIP WALL FRACTURE W/FIXATION Left 03/09/2015 OPEN TREATMENT POSTERIOR OR ANTERIOR ACETABULAR WALL performed by Kraig Snyder MD at [facility] TOTAL HIP REPLACEMENT & PROSTHESIS Right Review of patient's allergies indicates: No Known Allergies Current Outpatient Medications Medication Sig Dispense Refill Pregabalin 25 MG Oral Capsule (Lyrica) 1 cap by mouth with 100 mg dose at bedtime for total of 125 mg at bedtime (Patient not taking: Reported on 10/25/2023) 90 Capsule 0 Wegovy 1.7 MG/0.75ML Subcutaneous Solution Auto-injector (Semaglutide-Weight Management) Inject 1.7mg under the skin once a week for 28 days. Do not start before February 14, 2023. 3 mL 0 metFORMIN HCl ER 500 MG Oral Tablet Extended Release 24 Hour (Glucophage XR) TAKE TWO TABLETS BY MOUTH TWICE A DAY 360 Tablet 3 Furosemide 20 MG Oral Tablet (Lasix) TAKE 1 TABLET BY MOUTH IN THE MORNING. EVERY OTHER DAY FOR FLUID RETENTION. 45 Tablet 3 Wegovy 2.4 MG/0.75ML Subcutaneous Solution Auto-injector (Semaglutide-Weight Management) Inject 2.4mg under the skin once a week. 9 mL 2 rOPINIRole HCl 1 MG Oral Tablet (Requip) TAKE ONE TABLET BY MOUTH IN THE MORNING AND ONE TABLET BEFORE BEDTIME 180 Tablet 2 Rosuvastatin Calcium 40 MG Oral Tablet (Crestor) TAKE ONE TABLET BY MOUTH AT BEDTIME (Patient not taking: Reported on 10/25/2023) 90 Tablet 2 Baclofen 20 MG Oral Tablet Take 1 Tablet by mouth in the morning and 1 Tablet before bedtime. 180 Tablet 2 Fluticasone Propionate 50 MCG/ACT Nasal Suspension (Flonase) SPRAY 2 SPRAYS INTO EACH NOSTRIL IN THE MORNING 48 mL 1 Etodolac 200 MG Oral Capsule (Lodine) Take 1 Capsule by mouth in the morning and 1 Capsule at noon and 1 Capsule before bedtime. No current facility-administered medications for this visit. Family History: Family History Problem Relation Age of Onset Other (non-hodgkins lymphoma) Father Diabetes Grandmother (Maternal) Diabetes Grandfather (Maternal) Diabetes Grandmother (Paternal) Other (Cancer (? type)) Grandmother (Paternal) Diabetes Grandfather (Paternal) Heart disease Grandfather (Paternal) Other (germ cell tumor of ovaries) Sister Social History: Alcohol: Infrequent Tobacco Use: Yes, smokes 1/4-1/2 per day Drug Use: No Review of Systems: Review of Systems Gastrointestinal: Negative for diarrhea, nausea and vomiting. Did have some nausea/GI upset but found it was related to what he was eating Musculoskeletal: Positive for arthralgias. Off crestor and lyrica right now-- thought to be contributing to his joint pain--following with PCPteam Physical Examination: There were no vitals taken for this visit. Physical Exam Constitutional: Appearance: Normal appearance. Pulmonary: Effort: Pulmonary effort is normal. No respiratory distress. Neurological: Mental Status: He is alert and oriented to person, place, and time. Psychiatric: Mood and Affect: Mood normal. Assessment and Recommendation: GOALS -be sure to hit protein goals -watch evening snacking-- high carb/high sugar foods may cause GI upset -follow up with RD as scheduled Continue wegovy 2.4mg weekly Donny Schuler is a 53 year old patient with a past medical history listed above, who presents to the [facility] for further recommendations. Abnormal weight gain There is no height or weight on file to calculate BMI. Morbid obesity . Discussed weight management options and would like to proceed with conservative weight management. Barriers are consistency. Motivators are feeling better, avoiding/reducing comorbid conditions. Patient goals were discussed in detail at visit. Obesity: There is no height or weight on file to calculate BMI. Donny was seen today for weight management. Diagnoses and all orders for this visit: Morbid obesity due to excess calories (HCC) Goals as above Continue wegovy 2.4mg weekly Plan Wegovy 2.4 MG/0.75ML Subcutaneous Solution Auto-injector (Semaglutide-Weight Management) Abnormal weight gain Insulin resistance Continue wegovy Patient has severe insulin resistance, wegovy will help CARMEN on CPAP Saw sleep medicine and CPAP recommended. Dyslipidemia -not taking crestor right now-- joint pain Time spent with patient 16 minutes. More than 50% of my time spent with patient providing counseling about the benefits of weight loss, about the patient's nutritional status, detailed explanations about calorie count, types of nutrients to choose, and composition of the meals. Reviewed and discussed weight, weight trends and pertinent labs and test results. Motivational interview provided in order to prepare the patient to achieve future goals. The patient agreed to try all the plan discussed and return in 6 months .Patient was instructed to message or call in the meantime with any further concerns or questions. Niya Guerrero PA-C, [facility] Nutrition and Weight Management [facility] documented in this encounter Plan of Treatment Upcoming Encounters Date Type Department Care Team (Late st Contact Info) Description 02/26/2024 8:00 AM EDT Nutrition Services Nutrition & Weight Management, [facility] [address] [place] [address] Elena Aviles RDN [address] [place] [address] 03/12/2024 7:40 AM EDT [address] [phone] Annabella Renteria PA-C [address] [place] [address] Health Maintenance Due Date Last Done Comments [...] this encounter Medical Devices Implanted Type Area Supervisor Cold Rolling Device Identifier Shelf Expiration Date Model / Serial / Lot Plate Lcp Pilon 3.5 7h 240.082 - [id number] Implanted:Qty: 1 on 03/09/2015 by Kraig Snyder MD at [place] [facility] Left: Hip SYNTHES 240.082 / / Screw Selftap 3.5x40 204.840 - [id number] Implanted:Qty: 1 on 03/09/2015 by Kraig Snyder MD at [place] [facility] Left: Hip SYNTHES 204.840 / / Screw Selftap 3.5x60 204.860 - [id number] Implanted:Qty: 1 on 03/09/2015 by Kraig Snyder MD at [place] [facility] Left: Hip SYNTHES 204.860 / / Screw Selftap 3.5x38 204.838 - [id number] Implanted:Qty: 3 on 03/09/2015 by Kraig Snyder MD at [place] [facility] Left: Hip SYNTHES 204.838 / / Screw Lock 3.5 10mm 212.101 - [id number] Implanted:Qty: 2 on 03/09/2015 by Kraig Snyder MD at [place] [facility] Left: Hip SYNTHES 212.101 / / Screw Lock 3.5 12mm 212.102 - [id number] Implanted:Qty: 1 on 03/09/2015 by Kraig Snyder MD at [place] [facility] Left: Hip SYNTHES 212.102 / / Screw Selftap 3.5x32 204.832 - [id number] Implanted:Qty: 1 on 03/09/2015 by Kraig Snyder MD at [place] [facility] Left: Hip SYNTHES 204.832 / / Washer 13.0mm 219.99 - [id number] Implanted:Qty: 1 on 03/09/2015 by Kraig Snyder MD at [place] [facility] Left: Hip SYNTHES 219.99 / / documented as of this encounter Visit Diagnoses Diagnosis Obesity, Class II, BMI 35-39.9, isolated- Primary Morbid obesity documented in this encounter Advance Directives Latest Code Status on File Code Status Date Activated Date Inactivated Comments Full Code 03/06/2015 6:49 PM 03/12/2015 8:22 PM This or will reflects the patients wishes and were consensually agreed upon. Question Answer Comments Discussion of Advance Directives occurred with: Not Discussed Care Teams Chemist Relationship Specialty Start Date End Date Annabella Renteria PA-C [address] [place] [address] [place] [address] PCP - General Physician Professor Of Biological Sciences 06/07/22 documented as of this encounter
--- OUTSIDE RECORDS SUMMARY | 2024-01-02 04:25 | External Medical Summary | Summary of Care ---
Author Name Unknown Organization [facility] Address [address] [place] [address] Phone [phone] Care Team Providers Care Welding Machine Operator Electro Gas Name Role Phone Annabella Renteria PA-C Primary Care Provider [phone] Reason for Visit * Reason Comments Follow Up 6 month return Encounter Details Date Type Department Care Team (Late st Contact Info) Description 09/08/2023 8:00 AM EST Office Visit [facility] [address] [place] [address] Annabella Renteria PA-C [address], [place] [id number] Metabolic syndrome*; Charcot's joint, right ankle and foot; Polyneuropathy, unspecified; Lumbar spine pain; Lumbar radiculopathy; Body aches Allergies No known active allergiesdocumented as of this encounter (statuses as of 09/08/2023) Medications Medication Sig Dispensed Refills Start Date End Date Status Pregabalin 25 MG Oral Capsule (Lyrica)Indications :Restless legs syndrome,Spondyloli sthesis, unspecified spinal region,Peripheral polyneuropathy 1 cap by mouth with 100 mg dose at bedtime for total of 125 mg at bedtime 90 Capsule 0 2 Active Wegovy 1.7 MG/0.75ML Subcutaneous Solution Auto-injector (Semaglutide-Weight Management)Indicati ons:Morbid obesity due to excess calories (HCC) Inject 1.7 mg under the skin once a week for 28 days. Do not start before February 14, 2023. 3 mL 0 3 Active metFORMIN HCl ER 500 MG Oral Tablet Extended Release 24 Hour (Glucophage XR)Indications:Hype rinsulinemia TAKE TWO TABLETS BY MOUTH TWICE A DAY 360 Tablet 3 3 01/27/20 24 Active Furosemide 20 MG Oral Tablet (Lasix)Indications: Leg edema TAKE 1 TABLET BY MOUTH IN THE MORNING. EVERY OTHER DAY FOR FLUID RETENTION. 45 Tablet 3 3 Active Wegovy 2.4 MG/0.75ML Subcutaneous Solution Auto-injector (Semaglutide-Weight Management) Inject 2.4 mg under the skin once a week. 9 mL 2 3 Active rOPINIRole HCl 1 MG Oral Tablet (Requip)Indications :Restless legs syndrome TAKE ONE TABLET BY MOUTH IN THE MORNING AND ONE TABLET BEFORE BEDTIME 180 Tablet 2 3 05/31/20 24 Active Rosuvastatin Calcium 40 MG Oral Tablet (Crestor)Indication s:Dyslipidemia TAKE ONE TABLET BY MOUTH AT BEDTIME 90 Tablet 2 3 05/31/20 24 Active Baclofen 20 MG Oral TabletIndications:L umbar radiculopathy,Neuro [...] 1 Capsule before bedtime. 0 3 Active Pregabalin 100 MG Oral Capsule (Lyrica)Indications :Neuropathy,Lumbar radiculopathy TAKE ONE CAPSULE BY MOUTH THREE TIMES A DAY IN THE MORNING, AT NOON, AND BEFORE BEDTIME 270 Capsule 1 3 09/08/19 24 Discontinued Pregabalin 100 MG Oral Capsule (Lyrica)Indications :Neuropathy,Lumbar radiculopathy Take 1 Capsule by mouth in the morning and 1 Capsule at noon and 1 Capsule before bedtime. 270 Capsule 1 3 09/08/19 24 Discontinued Meloxicam 7.5 MG Oral Tablet (Mobic) Take 1 Tablet by mouth in the morning and 1 Tablet before bedtime. 180 Tablet 2 3 09/08/19 24 Discontinued Cyclobenzaprine HCl 5 MG Oral Tablet (Flexeril) Take 1 Tablet by mouth 4 times a day as needed for Pain, Severe. 0 3 09/08/19 24 Discontinued methylPREDNISolone 4 MG Oral Tablet Therapy Pack (Medrol Dosepack)Indication s:Lumbar spine pain,Lumbar radiculopathy follow package directions 21 Tablet 0 3 09/08/19 24 Discontinued documented as of this encounter (statuses as of 09/08/2023) Active Problems Problem Noted Date Diagnosed Date [...] as of this encounter (statuses as of 09/08/2023) Resolved Problems Problem Noted Date Diagnosed Date Resolved Date Preop examination 04/12/2023 09/08/2023 Corns and callosities 04/12/20232023 Type 2 diabetes mellitus wit h diabetic polyneuropathy 03/08/2023 03/08/2023 Corns and callosities 08/25/20222022 Type 2 diabetes mellitus wit h foot ulcer (CODE) 04/18/2022 04/18/2022 Fracture of acetabulum 03/24/201504/18 Fracture of clavicle 03/24/2015 022 documented as of this encounter (statuses as of 09/08/2023) Immunizations Name Administration Dates Next Due Seasonal Influenza, PF, 6 M & above, IM , (FluLaval or Fluzone) 06/13/2022 documented as of this encounter Social History Tobacco Use Types Packs/Day Years Used Date Smoking Tobacco: Every Day Cigarettes 0.5 30 Smokeless Tobacco: Current Snuff Tobacco Cessation:Ready to Q uit: Not Asked; Counseling Given: Not Answered Alcohol Use Standard Drinks/Week Comments Yes 0 [...] on file documented as of this encounter Last Filed Vital Signs Vital Sign Reading Time Taken Comments Blood Pressure 118/78 09/08/2023 7:58 AM EST Pulse 91 09/08/2023 7:58 AM EST Temperature 36.1 C (96.9 F) 09/08/2023 7:58 AM ES T Respiratory Rate 16 09/08/2023 7:58 AM EST Oxygen Saturation 98% 09/08/2023 7:58 AM EST Inhaled Oxygen Concentration - - Weight 137.7 kg (303 lb 9.6 oz) 09/08/2023 7:58 AM EST Height 193 cm (6' 4") 09/08/2023 7:58 AM EST Body Mass Index 36.96 09/08/2023 7:58 AM EST documented in this encounter Functional Status Functional Status Response [...] as of this encounter Progress Notes * Annabella Renteria PA-C - 09/08/2023 8:00 AM EST Images from the original note were not included. History of Present Illness Donny Schuler is a 52 year old male that presents for Follow Up (6 month return ) Here for reg return. Labs done and current. Thinks that the Lyrica is not helpful. Even at the higher dose Fluid in legs persists. Er 08/27 for lbp. He did do er f/u with Dr Bell. Ruled Kidney stone. Did stop his chol med as he was having body pain. This was a test run as he had so many friends whohave pain from the medicine. On Crestor. Component Latest Ref Rng 08/30/2023 BUN 6 - 20 mg/dL 11 Creatinine 0.6 - 1.2 mg/dL 0.8 Estimated Glomerular Filtration Rate >=60 mL/min >90 Sodium 135 - 146 mmol/L 140 Potassium 3.5 - 5.1 mmol/L 4.3 Chloride 98 - 107 mmol/L 105 CO2 22 - 32 mmol/L 24 Anion Gap 7 - 15 mmol/L 11 Glucose 70 - 120 mg/dL 81 Albumin 3.8 - 5.0 g/dL 4.6 AST 10 - 50 U/L 15 Alkaline Phosphatase 35 - 130 U/L 95 Bilirubin, Total <=1.2 mg/dL 0.4 Calcium 8.4 - 10.2 mg/dL 9.1 Protein 6.0 - 8.3 g/dL 6.7 ALT 10 - 50 U/L 20 Color, Urine Yellow or Light Yellow Yellow Clarity, Urine Clear Clear Glucose, Urine Negative mg/dL Negative Bilirubin, Urine Negative Negative Ketone, Urine Negative mg/dL Negative Specific [place], Urine 1.003 - 1.030 1.015 Blood, Urine Negative Trace-intact pH, Urine 5.0 - 7.5 units 5.0 Protein, Urine Negative mg/dL Negative Urobilinogen, Urine 0.2 - 1.0 mg/dL 0.2 Nitrite, Urine Negative Negative Esterase, Urine Negative Negative WBC 4.00 - 10.80 K/uL 6.22 RBC 4.50 - 5.25 M/uL 5.14 HGB 14.0 - 16.8 g/dL 16.1 HCT 40.0 - 48.4 % 49.4 (H) MCV 82.0 - 99.5 fL 96.1 MCH 27.0 - 34.0 pg 31.3 MCHC 32.0 - 36.0 g/dL 32.6 RDW 11.5 - 15.5 % 12.7 PLT 140 - 400 K/uL 240 MPV 6.6 - 11.1 fL 9.7 nRBCs <=0 /100 WBCs 0 Triglycerides <=174 mg/dL 143 Cholesterol <200 mg/dL 229 (H) HDL Cholesterol >39 mg/dL 56 Non-HDL Cholesterol <=159 mg/dL 173 (H) LDL Cholesterol <=129 mg/dL 144 (H) Hemoglobin A1C 4.0 - 5.6 % 5.3 Estimated Average Glucose <126 mg/dL 105 Lipase 13 - 60 U/L 41 Legend: (H) High Physical Exam Vitals: 09/08/23 0758 Temp: 36.1 C (96.9 F) Pulse: 91 Resp: 16 SpO2: 98% BP: 118/78 BMI: 36.97 BP Readings from Last 3 Encounters: 09/08/23 118/78 08/30/23 120/82 06/21/23 124/70 Wt Readings from Last 3 Encounters: 09/08/23 (!) 137.7 kg (303 lb 9.6 oz) 08/30/23 (!) 138.3 kg (305 lb) 06/21/23 (!) 137.8 kg (303 lb 12.8 oz) BMI Readings from Last 3 Encounters: 09/08/23 36.96 kg/m 08/30/23 37.13 kg/m 06/21/23 36.98 kg/m Ht Readings from Last 3 Encounters: 09/08/23 1.93 m (6' 4") 04/24/23 1.93 m (6' 4") 04/12/23 1.88 m (6' 2") General: alert, healthy, and no distress Head: Normocephalic, No masses, lesions, tenderness or abnormalities Eye Exam: PERRLA, extraocular movements intact, conjunctiva are pink and non- injected, sclera clear Ears: External ears normal, Canals clear, TM's Normal Nose: no mucosal erythema, no mucosal edema, no purulent discharge Oropharynx: no exudate, no erythema, lips, buccal mucosa, and tongue normal, and mucous membranes are moist Neck: supple, no adenopathy, no bruits, thyroid normal size, non-tender, without nodularity Heart: regular rate & rhythm, no murmur, no gallops, S-1 normal, and S-2 normal Lungs: chest symmetric with normal AP diameter, no chest deformities noted, no chest wall tenderness, lungs clear to auscultation Extremities: less than 2 second capillary refill, no joint deformities, effusion, or inflammation Skin: skin color, texture, turgor are normal, no rashes or significant lesions Assessment and Plan Metabolic syndrome (Primary) Charcot's joint, right ankle and foot Polyneuropathy, unspecified Lumbar spine pain - started hep 08/27/2023 - XR L SPINE AP AND LATERAL; Future; Expected date: 09/08/2023 Lumbar radiculopathy - XR L SPINE AP AND LATERAL; Future; Expected date: 09/08/2023 Body aches - CK; Future; Expected date: 09/08/2023 - ERYTHROCYTE SEDIMENTATION RATE (ESR); Future; Expected date: 09/08/2023 - ANTINUCLEAR ANTIBODY (RAUL) EIA SCREEN WITH REFLEX AB QUANT; Future; Expected date: 09/08/2023 - RHEUMATOID FACTOR; Future; Expected date: 09/08/2023 Wrap-Up Hold Lyrica Discuss chol meds Repeat back xrays Touch base jay jay 2 weeks Time: I spent a total of 20-29 minutes (exact time 21 mins) on the date of service in preparation, delivery, and documentation of the care provided to Donny Schuler excluding any time spent in the performance of separately billed services. Annabella Renteria PA-C 09/08/2023 8:21 AM documented in this encounter Nursing Notes * Ольга Finley CCMA - 09/08/2023 7:58 AM EST Donny Schuler is a 52 year old male who presents today for Chief Complaint Patient presents with Follow Up 6 month return documented in this encounter Plan of Treatment Upcoming Encounters Date Type Department Care Team (Late st Contact Info) Description 10/25/2023 8:00 AM EST Nutrition Services Nutrition & Weight Management, [facility] [address] [place] [address] Elena Aviles RDN [address] [place] [address] 11/21/2023 8:40 AM EDT Telemedicine Nutrition & Weight Management, [facility] [address] [place] [address] Niya Guerrero PA-C [address] [place] [address] 03/12/2024 7:40 AM EDT Office Visit [facility] [address] [place] [phone] Annabella Renteria PA-C [address] [place] [address] Scheduled Orders Name Type Priority Associated Diagnoses Orde r Schedule XR L SPINE AP AND LATERAL Medical Imaging Routine Lumbar spine pain Lumbar radiculopathy Expected: 09/08/2023, Expires: 10/09/2024 CK Lab Routine Body aches Expected: 09/08/2023 (Approximate), Expires: 09/07/2024 ERYTHROCYTE SEDIMENTATION RATE (ESR) Lab Routine Body aches Expected: 09/08/2023 (Approximate), Expires: 09/07/2024 ANTINUCLEAR ANTIBODY (RAUL) EIA SCREEN WITH REFLEX AB QUANT Lab Routine Body aches Expected: 09/08/2023 (Approximate), Expires: 09/07/2024 RHEUMATOID FACTOR Lab Routine Body aches Expected: 09/08/2023 (Approximate), Expires: 09/07/2024 Health Maintenance Due Date Last Done Comments Hepatitis B (1 of 3 - 3-dose series) 1970 COVID-19 Vaccine (#1) 05/18/1971 Pneumococcal Vaccine: Pediatrics (0 to 5 Years) and At-Risk Patients (6 to 64 Years) (1 - PCV) 1976 HIV Screening 1985 Hepatitis C Screening 1988 DTaP,Tdap,and Td Vaccines (1 - Tdap) 1989 Cologuard 11/16/2015 Colonoscopy 11/16/2015 Colorectal Cancer Screening 11/16/2015 Fecal Occult Blood Test 11/16/2015 Sigmoidoscopy 11/16/2015 Zoster Vaccines (1 of 2) 2020 Depression Screening 05/04/2022 05/04/2021 Influenza Vaccine (FLU shot) (#1) 2023 06/13/2022, 07/03/2018 Diabetes Screening 08/30/2026 08/30/2023, 1 10/31/2022, 04/12/2023, Additional history exists Lipid Panel 08/30/2028 08/30/2023, 04/04, 04/30/2021 GARDASIL-HPV IMMUNIZATION SERIES Aged Out No longer eligible based on patient's age to complete this topic MENINGOCOCCAL (MENACTRA/MENVEO) Aged Out No longer eligible based on patient's age to complete this topic documented as of this encounter Medical Devices Implanted Type Area Patient Relations Representative Device Identifier Shelf Expiration Date Model / Serial / Lot Washer 13.0mm 219.99 - [id number] Implanted:Qty: 1 on 03/09/2015 by Kraig Snyder MD [place] [facility] [place] Hip SYNTHES 219.99 / / documented as of this encounter Visit Diagnoses Diagnosis Metabolic syndrome- Primary Dysmetabolic Syndrome X Charcot's joint, right ankle and foot Polyneuropathy, unspecified Lumbar spine pain Lumbago Lumbar radiculopathy Thoracic or lumbosacral neuritis or radiculitis, unspecified Body aches Generalized pain documented in this encounter Advance Directives Latest Code Status on File Code Status Date Activated Date Inactivated Comments Full Code 03/06/2015 6:49 PM 03/12/2015 8:22 PM This or will reflects the patients wishes and were consensually agreed upon. Question Answer Comments Discussion of Advance Directives occurred with: Not Discussed Care Teams Welding Machine Operator Electro Gas Relationship Specialty Start Date End Date Annabella Renteria PA-C [address] [address] PCP - General Physician Swimmer 06/07/22 documented as of this encounter
--- OUTSIDE RECORDS SUMMARY | 2024-01-02 04:25 | External Medical Summary | Summary of Care ---
Author Name Unknown Organization [facility] Address [address] [place] [address] Phone [phone] Care Team Providers Care Automotive Painter Helper Name Role Phone Annabella Renteria PA-C Primary Care Provider [phone] Reason for Referral * Precert (Within 10 days (routine)) - Pending Review Specialty Diagnoses / Procedures Referred By Contneeraj t Referred To Contact Radiology Diagnoses Facet arthritis of lumbar region DDD (degenerative disc disease), lumbar Procedures MRI L SPINE WO CONTRAST Annabella Renteria PA-C [address] [place] [address] Referral ID Status Reason Start Date Expiration Date V isits Requested Visits Authorized [id number] Pending Review 10/19/2023 999 [id number] Reason for Visit * Reason Onset Date Comments Test Results Lab 09/25/2023 Encounter Details Date Type Department Care Team (Late st Contact Info) Description 09/25/2023 Telephone [facility] [address] [place] [phone] Annabella Renteria PA-C [address] [place] [address] Test Results Lab Allergies No known active allergiesdocumented as of this encounter (statuses as of 10/20/2023) Medications Medication Sig Dispensed Refills Start Date End Date Status Pregabalin 25 MG Oral Capsule (Lyrica)Indications:R estless legs syndrome,Spondylolist hesis, unspecified spinal region,Peripheral polyneuropathy 1 cap by mouth with 100 mg dose at bedtime for total of 125 mg at bedtime 90 Capsule 0 04/18/2022 Active Wegovy 1.7 MG/0.75ML Subcutaneous Solution Auto-injector (Semaglutide-Weight Management)Indication s:Morbid obesity due to excess calories (HCC) Inject 1.7 mg under the skin once a week for 28 days. Do not start before February 14, 2023. 3 mL 0 02/14/2023 Active metFORMIN HCl ER 500 MG Oral Tablet Extended Release 24 Hour (Glucophage XR)Indications:Hyperi nsulinemia TAKE TWO TABLETS BY MOUTH TWICE A DAY 360 Tablet 3 01/27/2023 01/27/2024 Active Furosemide 20 MG Oral Tablet (Lasix)Indications:Le g edema TAKE 1 TABLET BY MOUTH IN THE MORNING. EVERY OTHER DAY FOR FLUID RETENTION. 45 Tablet 3 05/07/2023 Active Wegovy 2.4 MG/0.75ML Subcutaneous Solution Auto-injector (Semaglutide-Weight Management) Inject 2.4 mg under the skin once a week. 9 mL 2 05/22/2023 Active rOPINIRole HCl 1 MG Oral Tablet (Requip)Indications:R estless legs syndrome TAKE ONE TABLET BY MOUTH IN THE MORNING AND ONE TABLET BEFORE BEDTIME 180 Tablet 2 06/01/2023 05/31/2024 Active Rosuvastatin Calcium 40 MG Oral Tablet (Crestor)Indications: Dyslipidemia TAKE ONE TABLET BY MOUTH AT BEDTIME 90 Tablet 2 06/01/2023 05/31/2024 Active Baclofen 20 MG Oral TabletIndications:Lum bar radiculopathy,Neuropa thy Take 1 Tablet by mouth in the morning and 1 Tablet before bedtime. 180 Tablet 2 06/01/2023 Active Fluticasone Propionate 50 MCG/ACT Nasal Suspension (Flonase)Indications: Dysfunction of right eustachian tube SPRAY 2 SPRAYS INTO EACH NOSTRIL IN THE MORNING 48 mL 1 07/14/2023 Active Etodolac 200 MG Oral Capsule (Lodine) Take 1 Capsule by mouth in the morning and 1 Capsule at noon and 1 Capsule before bedtime. 0 08/27/2023 Active documented as of this encounter (statuses as of 10/20/2023) Active Problems Problem Noted Date Diagnosed Date [...] as of this encounter (statuses as of 10/20/2023) Resolved Problems Problem Noted Date Diagnosed Date Resolved Date Preop examination 04/12/2023 09/08/2023 Corns and callosities 04/12/20232023 Type 2 diabetes mellitus wit h diabetic polyneuropathy 03/08/2023 03/08/2023 Corns and callosities 08/25/20222022 Type 2 diabetes mellitus wit h foot ulcer (CODE) 04/18/2022 04/18/2022 Fracture of acetabulum 03/24/201504/18 Fracture of clavicle 03/24/2015 022 documented as of this encounter (statuses as of 10/20/2023) Immunizations Name Administration Dates Next Due Seasonal [...] encounter Miscellaneous Notes * Telephone Encounter - Isa Bass OSA - 10/20/2023 9:05 AM EST Patient aware of message below. MRI scheduled. 10/20/2023 * Telephone Encounter - Annabella Renteria PA-C - 10/19/2023 4:17 PM EST As had 2 chiropractors tell him that they will not touch him at all He is thinking pt would be too painful - he tried before and they refused. Facet arthritis of lumbar region (Primary) - MRI L SPINE WO CONTRAST; Future; Expected date: 10/19/2023 DDD (degenerative disc disease), lumbar - MRI L SPINE WO CONTRAST; Future; Expected date: 10/19/2023 He did stop lyrica - it is not working -s till has same pain numbess and tingling The body aches - he should hold chol med for 4 weeks. Annabella Renteria PA-C 10/19/2023 4:20 PM * Telephone Encounter - Sharon Renner OSA - 10/19/2023 10:59 AM EST Pt is asking to speak with Daryl Renteria when possible. He states he has some concerns and is asking ifan MRI will be ordered? Please call him back when possible. * Telephone Encounter - Penny Brown LPN - 09/25/2023 3:24 PM EST Patient returned call. Informed of message. Verbalized understanding. * Telephone Encounter - Elena Urbina LPN - 09/25/2023 3:18 PM EST Left generic message on answering machine asking patient to return our call. * Telephone Encounter - Annabella Renteria PA-C - 09/25/2023 8:16 AM EST Back does show moderate degernative disease - nothing that appears surgical Vertebral body height is maintained. There is grade 1 anterolisthesis of L5 on S1. No acute fracture or subluxation. Bone mineralization is appropriate for age. No lytic or blastic osseous lesion. Multilevel intervertebral disc space narrowing. Multilevel facet arthropathy. The bilateral sacroiliac joints are preserved. Left acetabular and right hip hardware are partiallyvisualized incidentally noted. IMPRESSION IMPRESSION Moderate degenerative changes. Suggest he do his lab work and consider if he wants an mri and to see pain mnagement to discuss injection Annabella Renteria PA-C documented in this encounter Plan of Treatment Upcoming Encounters Date Type Department Care Team (Late st Contact Info) Description 10/25/2023 8:00 AM EST Nutrition Services Nutrition & Weight Management, [facility] [address] [facility] [place] [address] Elena Aviles RDN [address] [facility] [place] [address] 11/11/2023 8:30 AM EST Imaging Radiology [facility] 1st Floor, [place] [address] [facility] [place] [address] 11/21/2023 8:40 AM EDT Telemedicine Nutrition & Weight Management, [facility] [address] [facility] [place] [address] Niya Guerrero PA-C [address] [facility] [place] [address] 03/12/2024 7:40 AM EDT Office Visit [facility] [address] [place] [phone] Annabella Renteria PA-C [address] [place] [address] Scheduled Orders Name Type Priority Associated Diagnoses Orde r Schedule MRI L SPINE WO CONTRAST Medical Imaging Routine Facet arthritis of lumbar region DDD (degenerative disc disease), lumbar Expected: 10/19/2023, Expires: 11/16/2024 Health Maintenance Due Date Last Done Comments [...] this encounter Medical Devices Implanted Type Area Quality Control Supervisor Device Identifier Shelf Expiration Date Model / Serial / Lot Plate Lcp Pilon 3.5 7h 240.082 - [id number] Implanted:Qty: 1 on 03/09/2015 by Kraig Snyder MD at [place] [facility] [place] Left: Hip SYNTHES 240.082 / / Screw Selftap 3.5x40 204.840 - [id number] Implanted:Qty: 1 on 03/09/2015 by Kraig Snyder MD at OR [facility] [place] Left: Hip SYNTHES 204.840 / / Screw Selftap 3.5x60 204.860 - [id number] Implanted:Qty: 1 on 03/09/2015 by Kraig Snyder MD at OR [facility] [place] Left: Hip SYNTHES 204.860 / / Screw Selftap 3.5x38 204.838 - [id number] Implanted:Qty: 3 on 03/09/2015 by Kraig Snyder MD at OR [facility] [place] Left: Hip SYNTHES 204.838 / / Screw Lock 3.5 10mm 212.101 - [id number] Implanted:Qty: 2 on 03/09/2015 by Kraig Snyder MD at OR [facility] [place] Left: Hip SYNTHES 212.101 / / Screw Lock 3.5 12mm 212.102 - [id number] Implanted:Qty: 1 on 03/09/2015 by Kraig Snyder MD at [place] [facility] [place] Left: Hip SYNTHES 212.102 / / Screw Selftap 3.5x32 204.832 - [id number] Implanted:Qty: 1 on 03/09/2015 by Kraig Snyder MD at OR [facility] [place] Left: Hip SYNTHES 204.832 / / Washer 13.0mm 219.99 - [id number] Implanted:Qty: 1 on 03/09/2015 by Kraig Snyder MD at [place] [facility] [place] Left: Hip SYNTHES 219.99 / / documented as of this encounter Visit Diagnoses Diagnosis Facet arthritis of lumbar region- Primary Lumbosacral spondylosis without myelopathy DDD (degenerative disc disease), lumbar Degeneration of lumbar or lumbosacral intervertebral disc documented in this encounter Advance Directives Latest Code Status on File Code Status Date Activated Date Inactivated Comments Full Code 03/06/2015 6:49 PM 03/12/2015 8:22 PM This or will reflects the patients wishes and were consensually agreed upon. Question Answer Comments Discussion of Advance Directives occurred with: Not Discussed Care Teams Automotive Painter Helper Relationship Specialty Start Date End Date Annabella Renteria PA-C [address] [facility] [place] [address] PCP - General Physician Database Marketing Analyst 06/07/22 documented as of this encounter
--- OUTSIDE RECORDS SUMMARY | 2024-01-02 04:25 | External Medical Summary | Summary of Care ---
Author Name Unknown Organization [facility] Address [address] [facility] [address] Phone [phone] Care Team Providers Care Orange Picker Name Role Phone Annabella Renteria PA-C Primary Care Provider [phone] Reason for Visit * Reason Comments Dietary Counseling Pt is on anant. Patrice adam to discuss nutrition advice. Encounter Details Date Type Department Care Team (Latest Contact Info) Description 10/25/2023 8:00 AM [facility] Nutrition Services Nutrition & Weight Management, [facility] [address] [place] [address] Elena Aviles RDN [address] [place] [id number] Obesity, Class II, BMI 35-39.9, isolated*; CARMEN on CPAP; Abnormal weight gain Allergies No known active allergiesdocumented as of this encounter (statuses as of 10/25/2023) Medications Medication Sig Dispensed Refills Start Date [...] as of this encounter (statuses as of 10/25/2023) Active Problems Problem Noted Date Diagnosed Date [...] as of this encounter (statuses as of 10/25/2023) Resolved Problems Problem Noted Date Diagnosed Date Resolved Date Preop examination 04/12/2023 09/08/2023 Corns and callosities 04/12/20232023 Type 2 diabetes mellitus wit h diabetic polyneuropathy 03/08/2023 03/08/2023 Corns and callosities 08/25/20222022 Type 2 diabetes mellitus wit h foot ulcer (CODE) 04/18/2022 04/18/2022 Fracture of acetabulum 03/24/201504/18 Fracture of clavicle 03/24/2015 022 documented as of this encounter (statuses as of 10/25/2023) Immunizations Name Administration Dates Next Due Seasonal [...] Sign Reading Time Taken Comments Blood Pressure 130/88 10/25/2023 8:00 AM EST Pulse 80 10/25/2023 8:00 AM EST Temperature 36.5 C (97.7 F) 10/25/2023 8:00 AM ES T Respiratory Rate - - Oxygen Saturation - - Inhaled Oxygen Concentration - - Weight 139.9 kg (308 lb 8 oz) 10/25/2023 8:00 AM EST Height 193 cm (6' 4") 10/25/2023 8:00 AM EST Body Mass Index 37.55 10/25/2023 8:00 AM EST documented in this encounter Functional [...] as of this encounter Progress Notes * Elena Aviles RDN - 10/25/2023 8:00 AM EST NUTRITION & WEIGHT MANAGEMENT PROGRESS NOTE Conservative Management [facility], [place], [facility] Name: Donny Schuler Location: NUTRITION & WEIGHT MANAGEMENT, [facility] Date: 10/24/2023 Time: 9:36 AM Patient was identified at visit by name and date. Patient was seen [id number] in the clinic. NUTRITION ASSESSMENT SUBJECTIVE: 52 year old male with Obesity Class II who has been following in clinic since 07/2021 and weighed 349 lbs at that time. Patient Occupation works in construction. Lives with Mary (who follows with [facility] and has hx ofbariatric surgery) and adult kids/grandkids. Pts does the cooking and the grocery shopping. Family is supportive of weight loss goals. PRIOR NUTRITION COUNSELING: Weight Management Clinic CHALLENGES/SUCCESS TO PREVIOUS WEIGHT LOSS ATTEMPTS: Success with AOMs, pts has hx of bariatric surgery and prepares well balanced meals SUPPLEMENTS: None PERTINENT MEDICATIONS: Semaglutide 2.4 mg, nausea FOOD ALLERGY/INTOLERANCE ISSUES: None 10/25/23 -4 m dietary follow up -Wt is up since MARK, was on steroids for back pain -Off cholesterol meds to assess impact to inflammation/joint pain -Has been off of work for over a month, kids and grand kids have been sick, life has been stressful 06/21/23 -3 m dietary ret -Reporting some stomach cramping ~ once a week, not getting all the time, since going to [facility] -Having more hip pain with weight loss -Will be going hunting in [place] in Jul and 05/22/2023 -wegovy 2.4mg weekly -weight today 300 -doing really well, tolerating wegovy Describes typical diet history/24 hr recall Breakfast: 4-6 eggs with meat 4 pc toast Snacks: protein shake or bar Lunch: sandwich or soup fruit veg Snacks: protein shake or bar fruit/veg Dinner: meat veg starch Snacks: protein shake or bar fruit veg Drinks: water Alcohol: None Snacking on chips and snack cakes from stress Restaurant meals: 2-3 times a month PHYSICAL ACTIVITY: Limited due to ongoing back pain numbness and tingling, MRI ordered DIET RECALL INDICATES: Inadequate fruit and vegetable intake Portion control Good meal distribution Adequate protein intake Progress on goals from the previous visit: Continue focusing on portion sizes, protein no less than 100g daily, continue with wegovy 2.4 ANTHROPOMETRICS: Initial clinic visit 07/07/21 Weight 349 lbs Height 6' 2.5" AIBW: 227 lbs/ 103 kg Highest weight: 390 lbs 9 yrs ago Current weight: 308 lbs MARK Weight: 303 lbs Date: 06/21/23 Weight changes: +5 lbs since MARK Wt Readings from Last 10 Encounters: 10/25/23 (!) 139.9 kg (308 lb 8 oz) 09/08/23 (!) 137.7 kg (303 lb 9.6 oz) 08/30/23 (!) 138.3 kg (305 lb) 06/21/23 (!) 137.8 kg (303 lb 12.8 oz) 04/24/23 (!) 138.7 kg (305 lb 12.8 oz) 04/12/23 (!) 142.2 kg (313 lb 8 oz) 03/20/23 (!) 143.3 kg (316 lb) 03/08/23 (!) 149.2 kg (329 lb) 01/18/23 (!) 152.3 kg (335 lb 12.8 oz) 01/17/23 (!) 151 kg (332 lb 14.4 oz) MNT: Calorie Controlled Diet, Low Fat Diet, High Fiber Diet, Good Nutrition, Nutrient Dense Diet, 100 grams Protein Patient is interested in the following treatment options for obesity: medical management and medication use. LABS:Pertinent lab studies have been reviewed. Latest Reference Range & Units 08/30/23 09:12 Cholesterol <200 mg/dL 229 (H) Non-HDL Cholesterol <=159 mg/dL 173 (H) HDL Cholesterol >39 mg/dL 56 LDL Cholesterol <=129 mg/dL 144 (H) (H): Data is abnormally high Latest Reference Range & Units 11/23/22 07:28 Hemoglobin A1C 4.0 - 5.6 % 5.5 Insulin 3 - 25 uU/mL 34 (H) (H): Data is abnormally high NUTRITION PRESCRIPTION: [place] Jeor 2349 x 1.2 activity factor = 2818 Kcals --> 2300 Kcals for weight loss Protein: 1-1.2 gm protein/kg (103 kg) = 100-124 gm protein/day Fluid: 25 mL/kg (103 kg) = 2575 mL/day KNOWLEDGE ASSESSMENT: adequate knowledge BARRIERS TO LEARNING: None SPECIAL EDUCATION NEEDS: None NUTRITION DIAGNOSIS: Overweight/obesity related to excessive energy intake and physical inactivity as evidenced by BMI of 36.96 kg/m, Class II Obesity. NUTRITION INTERVENTION INSTRUCTED PT ON THESE NUTRITION HANDOUTS: None given PATIENT GOALS: Continue focusing on portion sizes, protein no less than 100g daily, continue with wegovy 2.4 Protein fruit.veg at each meal and snack Cut back on snacks that are higher in fat and sugar like the chips, queso dip, snack cakes, etc to reduce nausea Consider reducing gluten intake or adding a tumeric supplement to help reduce pain from join inflammation EXPECTED OUTCOMES: Demonstrated interest in learning. Expect compliance with diet recommendations. PLAN: 4 m ret 30 min visit Elena Aviles RDN documented in this encounter Nursing Notes * Sherie Beebe, MED ASSIST - 10/25/2023 8:02 AM EST Pt verified identity by last name and date. Chief Complaint Patient presents with Dietary Counseling Pt is on wegovy. Wants to discuss nutrition advice. documented in this encounter Plan of Treatment Upcoming Encounters Date Type Department Care Team (Late st Contact Info) Description 11/11/2023 8:30 AM EST Imaging Radiology [facility] 1st Floor, [address] [place] [id number] 11/21/2023 8:40 AM EDT Telemedicine Nutrition & Weight Management, [facility] [address] [place] [address] Niya Guerrero PA-C [address] [place] [address] 02/26/2024 8:00 AM EDT Nutrition Services Nutrition & Weight Management, [facility] [address] [place] [id number] Elena Aviles RDN [address] [place] [id number] 03/12/2024 7:40 AM EDT Office Visit [address] [place] [phone] Annabella Renteria PA-C [address] [place] [address] Health Maintenance Due Date Last Done Comments [...] this encounter Medical Devices Implanted Type Area Outboard Motor Inspector Device Identifier Shelf Expiration Date Model / Serial / Lot Plate Lcp Pilon 3.5 7h 240.082 - [id number] Implanted:Qty: 1 on 03/09/2015 by Kraig Snyder MD at OR [facility] Left: Hip SYNTHES 240.082 / / Screw Selftap 3.5x40 204.840 - [id number] Implanted:Qty: 1 on 03/09/2015 by Kraig Snyder MD at OR [facility] Left: Hip SYNTHES 204.840 / / Screw Selftap 3.5x60 204.860 - [id number] Implanted:Qty: 1 on 03/09/2015 by Kraig Snyder MD at OR [facility] Left: Hip SYNTHES 204.860 / / Screw Selftap 3.5x38 204.838 - [id number] Implanted:Qty: 3 on 03/09/2015 by Kraig Snyder MD at OR [facility] Left: Hip SYNTHES 204.838 / / Screw Lock 3.5 10mm 212.101 - [id number] Implanted:Qty: 2 on 03/09/2015 by Kraig Snyder MD at OR [facility] Left: Hip SYNTHES 212.101 / / Screw Lock 3.5 12mm 212.102 - [id number] Implanted:Qty: 1 on 03/09/2015 by Kraig Snyder MD at OR [facility] Left: Hip SYNTHES 212.102 / / Screw Selftap 3.5x32 204.832 - [id number] Implanted:Qty: 1 on 03/09/2015 by Kraig Snyder MD at OR [facility] Left: Hip SYNTHES 204.832 / / Washer 13.0mm 219.99 - [id number] Implanted:Qty: 1 on 03/09/2015 by Kraig Snyder MD at OR [facility] Left: Hip SYNTHES 219.99 / / documented as of this encounter Visit Diagnoses Diagnosis Obesity, Class II, BMI 35-39.9, isolated- Primary Morbid obesity CARMEN on CPAP Obstructive sleep apnea (adult) (pediatric) Abnormal weight gain documented in this encounter Advance Directives Latest Code Status on File Code Status Date Activated Date Inactivated Comments Full Code 03/06/2015 6:49 PM 03/12/2015 8:22 PM This or will reflects the patients wishes and were consensually agreed upon. Question Answer Comments Discussion of Advance Directives occurred with: Not Discussed Care Teams Orange Picker Relationship Specialty Start Date End Date Annabella Renteria PA-C [address] [place] [id number] PCP - General Physician Switch Technician 06/07/22 documented as of this encounter
--- OUTSIDE RECORDS SUMMARY | 2024-01-02 04:25 | External Medical Summary | Summary of Care ---
Author Name Unknown Organization [facility] Address [address] [facility] [address] Phone [phone] Care Team Providers Care Investigator Narcotics Name Role Phone Annabella Renteria PA-C Primary Care Provider [phone] Reason for Visit * Reason Comments Acute Intermittent lower b ack pain-flared over the last few days. Went to Er on [address] Encounter Details Date Type Department Care Team (Latest Contact Info) Description 08/30/2023 8:40 AM EST Office Visit [facility] [address] [place] [address] January, Maxim Agrawal MD [address] [place] [address] Flank pain*; Lumbar spine pain; Lumbar radiculopathy Allergies No known active allergiesdocumented as of this encounter (statuses as of 08/30/2023) Medications Medication Sig Dispensed Refills Start Date [...] DAY 360 Tablet 3 01/27/2023 4 Active Pregabalin 100 MG Oral Capsule (Lyrica)Indications: Neuropathy,Lumbar radiculopathy TAKE ONE CAPSULE BY MOUTH THREE TIMES A DAY IN THE MORNING, AT NOON, AND BEFORE BEDTIME 270 Capsule 1 10/13/2022 Active Pregabalin 100 MG Oral Capsule (Lyrica)Indications: Neuropathy,Lumbar radiculopathy Take 1 Capsule by mouth in the morning and 1 Capsule at noon and 1 Capsule before bedtime. 270 Capsule 1 04/03/2023 Active Furosemide 20 MG Oral Tablet (Lasix)Indications:L [...] BEDTIME 90 Tablet 2 06/01/2023 4 Active Meloxicam 7.5 MG Oral Tablet (Mobic) Take 1 Tablet by mouth in the morning and 1 Tablet before bedtime. 180 Tablet 2 06/01/2023 Active Baclofen 20 MG Oral TabletIndications:Sylvia mbar radiculopathy,Neurop athy Take 1 Tablet by mouth in the morning and 1 Tablet before bedtime. 180 Tablet 2 06/01/2023 Active Fluticasone Propionate 50 MCG/ACT Nasal Suspension (Flonase)Indications :Dysfunction of right eustachian tube SPRAY 2 SPRAYS INTO EACH NOSTRIL IN THE MORNING 48 mL 1 07/14/2023 Active Cyclobenzaprine HCl 5 MG Oral Tablet (Flexeril) Take 1 Tablet by mouth 4 times a day as needed for Pain, Severe. 0 08/27/2023 Active Etodolac 200 MG Oral Capsule (Lodine) Take 1 Capsule by mouth in the morning and 1 Capsule at noon and 1 Capsule before bedtime. 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 Charcot's joint, right ankle and foot 08/25/2022 Restless legs syndrome 04/18/2022 Body mass index (BMI) of 40.0 to 44.9 in adult 0 12/13/2021 Overview: Per Obesity protocol Lumbar radiculopathy 02/01/2017 Spondylolisthesis 02/01/2017 Neck pain 08/22/2016 Lumbar spine pain 08/22/2016 documented as of this encounter (statuses as of 08/30/2023) Resolved Problems Problem Noted Date Diagnosed Date Resolved Date Type 2 diabetes mellitus wit h diabetic polyneuropathy 03/08/2023 03/08/2023 Corns and callosities 08/25/20222022 Type 2 diabetes mellitus wit h foot ulcer (CODE) 04/18/2022 04/18/2022 Fracture of acetabulum 03/24/201504/18 Fracture of clavicle 03/24/2015 022 documented as of this encounter (statuses as of 08/30/2023) Immunizations Name Administration Dates Next Due Seasonal [...] Sign Reading Time Taken Comments Blood Pressure 120/82 08/30/2023 8:33 AM EST Pulse 102 08/30/2023 8:33 AM EST Temperature 36.8 C (98.2 F) 08/30/2023 8:33 AM ES T Respiratory Rate 18 08/30/2023 8:33 AM EST Oxygen Saturation - - Inhaled Oxygen Concentration - - Weight 138.3 kg (305 lb) 08/30/2023 8:33 AM EST Height - - Body Mass Index 37.13 04/24/2023 1:31 PM EDT documented in this encounter Functional Status Functional [...] as of this encounter Progress Notes * Maxim Bell MD - 08/30/2023 8:42 AM EST Images from the original note were not included. Assessment and Plan This seems to be a flare of his known degenerative disc disease and lumbar radiculopathy. We will get a UA to rule out blood given patient's concern for kidney stone, however, description of pain andphysical exam does not seem to indicate this. Recommend Medrol Dosepak. Did discuss chiropractor, physical therapy, referral to interventional pain. Patient declined at this time. 1. Flank pain - URINALYSIS, POINT OF CARE (ENTER/EDIT) 2. Lumbar spine pain - methylPREDNISolone 4 MG Oral Tablet Therapy Pack (Medrol Dosepack); follow package directions Dispense: 21 Tablet; Refill: 0 3. Lumbar radiculopathy - methylPREDNISolone 4 MG Oral Tablet Therapy Pack (Medrol Dosepack); follow package directions Dispense: 21 Tablet; Refill: 0 Wrap-Up Follow up as needed. History of Present Illness The patient is a 52 year old male with past medical history of obesity, RLS, lumbar radiculopathy, tobacco use who presents for ED follow up. Patient seen in the ED on 08/27/2023 for flare of lumbar back pain. Patient with stable vital signs. No indication for labs or imaging in the ED as pain was in lumbar paraspinals and no red flag symptoms. Symptoms started 08/25/2023. No injury. No other changes to activity. No incontinence. No falls. Taking muscle relaxer, NSAID, Lyrica. He is concerned about kidney stone. Physical Exam Vitals: 08/30/23 0833 Temp: 36.8 C (98.2 F) Pulse: 102 Resp: 18 BP: 120/82 Physical Exam Physical Exam Vitals reviewed. Constitutional: General: He is not in acute distress. Abdominal: Tenderness: There is no right CVA tenderness or left CVA tenderness. Musculoskeletal: Comments: Pain to palpation in the lumbar paraspinal muscles especially on the [id number]-right. Slightly diminished forward flexion due to pain. Ambulating without difficulty. Neurological: Mental Status: He is alert. documented in this encounter Nursing Notes * Amelia Crane LPN - 08/30/2023 8:36 AM EST The patient has been properly identified by confirmation of name and date of . Chief Complaint Patient presents with Acute Intermittent lower back pain-flared over the last few days. Went to Er on [address] documented in this encounter Plan of Treatment Upcoming Encounters Date Type Department Care Team (Late st Contact Info) Description 09/08/2023 8:00 AM EST Office Visit [facility] [address] [place] [address] Annabella Renteria PA-C [address] [place] [address] 10/25/2023 8:00 AM EST Nutrition Services Nutrition & Weight Management, [facility] [address] [facility] [place] [address] Elena Aviles RDN [address] [place] [address] 11/21/2023 8:40 AM EDT Telemedicine Nutrition & Weight Management, [facility] [address] [facility] [place] [address] Niya Guerrero PA-C [address] [facility] [place] [phone] Health Maintenance Due Date Last Done Comments [...] shot) (#1) 2023 06/13/2022, 07/03/2018 Diabetes Screening 04/12/2026 04/12/2023, 0 04/12/2023, 11/23/2022, Additional history exists Lipid Panel 04/20/2027 04/20/2022, 04/30/2021 GARDASIL-HPV IMMUNIZATION SERIES Aged Out No longer eligible based on patient's age to complete this topic MENINGOCOCCAL (MENACTRA/MENVEO) Aged Out No longer eligible based on patient's age to complete this topic documented as of this encounter Medical Devices Implanted Type Area Nurse Reviewer Device Identifier Shelf Expiration Date Model / Serial / Lot Washer 13.0mm 219.99 - [id number] Implanted:Qty: 1 on 03/09/2015 by Kraig Snyder MD at [facility] Left: Hip SYNTHES 219.99 / / documented as of this encounter Procedures Procedure Name Priority Date/Time Associated Diagnosis Comments URINALYSIS, POINT OF CARE (ENTER/EDIT) Routine 08/30/2023 Flank pain documented in this encounter Results * URINALYSIS, POINT OF CARE (ENTER/EDIT) (08/30/2023) Color, Urine Yellow Yellow or Light Yellow Clarity, Urine Clear Clear Glucose, Urine Negative Negative mg/dL Bilirubin, Urine Negative Negative Ketone, Urine Negative Negative mg/dL Specific [place], Urine 1.015 1.003 - 1.030 Blood, Urine Trace-intact Negative pH, Urine 5.0 5.0 - 7.5 units Protein, Urine Negative Negative mg/dL Urobilinogen, Urine 0.2 0.2 - 1.0 mg/dL Nitrite, Urine Negative Negative Esterase, Urine Negative Negative Urine 08/30/2023 Maxim Bell MD LAB POINT OF CARE [facility] ENTER/EDIT ORDERABLES documented in this encounter Visit Diagnoses Diagnosis Flank pain- Primary Abdominal pain, unspecified site Lumbar spine pain Lumbago Lumbar radiculopathy Thoracic or lumbosacral neuritis or radiculitis, unspecified documented in this encounter Advance Directives Latest Code Status on File Code Status Date Activated Date Inactivated Comments Full Code 03/06/2015 6:49 PM 03/12/2015 8:22 PM This or will reflects the patients wishes and were consensually agreed upon. Question Answer Comments Discussion of Advance Directives occurred with: Not Discussed Care Teams Investigator Narcotics Relationship Specialty Start Date End Date Annabella Renteria PA-C [address] [facility] [place] [address] PCP - General Physician Laborer [employer] 06/07/22 documented as of this encounter
--- OUTSIDE RECORDS SUMMARY | 2024-01-02 04:25 | External Medical Summary | Summary of Care ---
Author Name Unknown Organization [facility] Address [address] [facility] [place] [address] Phone [phone] Care Team Providers Care Craft Worker Name Role Phone Annabella Renteria PA-C Primary Care Provider [phone] Reason for Visit * Reason Onset Date Comments Precert In Process 11/22/2023 20 ABELINO ECHEVARRIA WEGABBIEVY Encounter Details Date Type Department Care Team (Late st Contact Info) Description 11/22/2023 Telephone Nutrition & Weight Management, [facility] [address] [place] [address] Niya Guerrero PA-C [address] [place] [address] Precert In Process ( ABELINOArtis DUONGVY) Allergies No known active allergiesdocumented as of this encounter (statuses as of 11/22/2023) Medications Medication Sig Dispensed Refills Start Date [...] as of this encounter (statuses as of 11/22/2023) Active Problems Problem Noted Date Diagnosed Date [...] as of this encounter (statuses as of 11/22/2023) Resolved Problems Problem Noted Date Diagnosed Date Resolved Date Preop examination 04/12/2023 09/08/2023 Corns and callosities 04/12/20232023 Type 2 diabetes mellitus wit h diabetic polyneuropathy 03/08/2023 03/08/2023 Corns and callosities 08/25/20222022 Type 2 diabetes mellitus wit h foot ulcer (CODE) 04/18/2022 04/18/2022 Fracture of acetabulum 03/24/201504/18 Fracture of clavicle 03/24/2015 022 documented as of this encounter (statuses as of 11/22/2023) Immunizations Name Administration Dates Next Due Seasonal [...] follows: Patient name: Donny Schuler ID number: [id number] BIN number: [id number] PCN number: [employer] Group number: [id number] Subscriber name: Donny Schuler Primary or Secondary Insurance:Primary Medication: [facility] family Reason for Request: [phone] Pharmacy and phone number: [facility] [phone] Rx plan and phone number: [facility] [phone] Is this a new medication for the patient? No. How did the patient obtain the medication on the lastfill? It was covered last time on this same insurance. What alternative medications does the pharmacy have in stock?: none Thank you, Marlen Schultz CphT Chair Finisher III [facility]) (formerly Telepharmacy) 11/22/2023,9:02 AM documented in this encounter Plan of Treatment Upcoming Encounters Date Type Department Care Team (Late st Contact Info) Description 02/26/2024 8:00 AM EDT Nutrition Services Nutrition & Weight Management, [facility] [address] [place] [address] Elena Aviles RDN [address] [place] [phone] 03/12/2024 7:40 AM EDT Office Visit Family [facility], [place] [address] [place] [address] Annabella Renteria PA-C [address] [place] [address] 05/30/2024 8:20 AM EDT Telemedicine Nutrition & Weight Management, [facility] [address] [place] [address] Niya Guerrero PA-C [address] [place] [address] Health Maintenance Due Date Last Done Comments [...] Screening 05/04/2022 05/04/2021 COVID-19 Vaccine ( - season) 2023 Influenza Vaccine (FLU shot) [...] this encounter Medical Devices Implanted Type Area Plumber Device Identifier Shelf Expiration Date Model / Serial / Lot Plate Lcp Pilon 3.5 7h 240.082 - [id number] Implanted:Qty: 1 on 03/09/2015 by Kraig Snyder MD at [place] [facility] [place] Left: Hip SYNTHES 240.082 / / Screw Selftap 3.5x40 204.840 - [id number] Implanted:Qty: 1 on 03/09/2015 by Kraig Snyder MD at [place] [facility] [place] Left: Hip SYNTHES 204.840 / / Screw Selftap 3.5x60 204.860 - [id number] Implanted:Qty: 1 on 03/09/2015 by Kraig Snyder MD at [place] [facility] [place] Left: Hip SYNTHES 204.860 / / Screw Selftap 3.5x38 204.838 - [id number] Implanted:Qty: 3 on 03/09/2015 by Kraig Snyder MD at [place] [facility] [place] Left: Hip SYNTHES 204.838 / / Screw Lock 3.5 10mm 212.101 - [id number] Implanted:Qty: 2 on 03/09/2015 by Kraig Snyder MD at [place] [facility] [place] Left: Hip SYNTHES 212.101 / / Screw Lock 3.5 12mm 212.102 - [id number] Implanted:Qty: 1 on 03/09/2015 by Kraig Snyder MD at [place] [facility] Left: Hip SYNTHES 212.102 / / Screw Selftap 3.5x32 204.832 - [id number] Implanted:Qty: 1 on 03/09/2015 by Kraig Snyder MD at [place] [facility] Left: Hip SYNTHES 204.832 / / Washer 13.0mm 219.99 - [id number] Implanted:Qty: 1 on 03/09/2015 by Kraig Snyder MD at [place] [facility] [place] Left: Hip SYNTHES 219.99 / / documented as of this encounter Advance Directives Latest Code Status on File Code Status Date Activated Date Inactivated Comments Full Code 03/06/2015 6:49 PM 03/12/2015 8:22 PM This or will reflects the patients wishes and were consensually agreed upon. Question Answer Comments Discussion of Advance Directives occurred with: Not Discussed Care Teams Craft Worker Relationship Specialty Start Date End Date Annabella Renteria PA-C [address] [place] [address] PCP - General Physician Box Maker Wood 06/07/22 documented as of this encounter
--- OUTSIDE RECORDS SUMMARY | 2024-01-02 04:26 | External Medical Summary ---
Author Name Unknown Address Unknown Organization [id number]:LABORATORY [facility] [place] - [address] [place] [address] Laboratory Report Ordering Provider Test Date Status JENNIFER PAEZ 08/30/2023 09:12:37 Final Observation Date Value Abnormality Reference (Units ) Status Lipase 08/30/2023 09:12:37 41 13-60 (U/L ) Final Performing Location LAB[facility]ATORY [facility] [place] - [address] [place] [address]
--- OUTSIDE RECORDS SUMMARY | 2024-01-02 04:26 | External Medical Summary ---
Author Name Unknown Address Unknown Organization K01:[facility]ATORY [facility] [address] [place] [address] Laboratory Report Ordering Provider Test Date Status JULIANO LEACH 08/30/2023 09:12:37 Final Observation Date Value Abnormality Reference (Units ) Status Triglyceride 08/30/2023 09:12:37 143 <=174 ( mg/dL) Final Triglyceride Reference Range s (mg/dL):
<150 Acceptable
150-174 Borderline high
175-499 High
>=500 Very high Cholesterol 08/30/2023 09:12:37 229 Above high normal <200 (mg/dL) Final Total Cholesterol Reference Ranges (mg/dL):
<200 Desirable
200-239 Borderline high
>=240 High HDL 08/30/2023 09:12:37 56 >39 (mg/dL ) Final HDL Cholesterol Reference Ra nges (mg/dL):
>=60 High (Desirable)
<50 Low (Undesirable) For Females
<40 Low (Undesirable) For Males NON-HDL CHOLESTEROL 08/30/2023 09:12:37 173 Above high normal <=159 (mg/dL) Final Non-HDL Cholesterol Referenc e Range (mg/dL):
<100 Target level for high risk ASCVD patient
<130 Optimal for general population
130-159 Near optimal for general population
160-189 Borderline High
190-219 High
>=220 Very High LDL, (calculated) 08/30/2023 09:12:37 144 Above high n ormal <=129 (mg/dL) Final LDL Cholesterol Reference Ra nges (mg/dL):
<70 Target level for high risk ASCVD patient
<100 Optimal for general population
100-129 Near optimal for general population
130-159 Borderline high
160-189 High
>=190 Very high Performing Location [facility] [place] [address] [facility] [address]
--- OUTSIDE RECORDS SUMMARY | 2024-01-02 04:26 | External Medical Summary | Summary of Care ---
Author Name Unknown Organization [facility] Address [address] [place] [address] Phone [phone] Care Team Providers Care Child Protective Services Specialist Name Role Phone Annabella Renteria PA-C Primary Care Provider [phone] Reason for Visit * Reason Comments Outpatient Testing Encounter Details Date Type Department Care Team (Late st Contact Info) Description 08/30/2023 9:10 AM EST Laboratory Laboratory, [place] [address] [place] [address] [facility] [address] [place] [address] Metabolic syndrome; Encounter for long-term (current) use of medications Allergies No known active allergiesdocumented as of [...] No 03/06/2015 documented as of this encounter Plan of Treatment Upcoming Encounters Date Type Department Care Team (Late st Contact Info) Description 09/08/2023 8:00 AM EST Office Visit [facility] [address] [place] [address] Annabella Renteria PA-C [address] [place] [address] 10/25/2023 8:00 AM EST Nutrition Services Nutrition & Weight Management, [facility] [address] [place] [address] Elena Aviles RDN [address] [place] [address] 11/21/2023 8:40 AM EDT Telemedicine Nutrition & Weight Management, [facility] [address] [place] [address] Niya Guerrero PA-C [address] [place] [address] Pending Results Name Type Priority Associated Diagnoses Date /Time HEMOGLOBIN A1C Lab Routine Metabolic syndrome 08/30/2023 9:12 AM EST COMPREHENSIVE METABOLIC PANEL Lab Routine Metabolic syndrome 08/30/2023 9:12 AM EST LIPASE Lab Routine Metabolic syndrome Encounter for long-term (current) use of medications 08/30/2023 9:12 AM EST CBC Lab Routine Encounter for long-term (current) use of medications 08/30/2023 9:12 AM EST LIPID PANEL WITH DIRECT LDL IF TG IS HIGH Lab Routine Encounter for long-term (current) use of medications 08/30/2023 9:12 AM EST Health Maintenance Due Date Last Done Comments [...] this encounter Medical Devices Implanted Type Area Center Maker Hand Device Identifier Shelf Expiration Date Model / Serial / Lot Washer 13.0mm 219.99 - [id number] Implanted:Qty: 1 on 03/09/2015 by Kraig Snyder MD at [place] [facility] [place] Left: Hip SYNTHES 219.99 / / documented as of this encounter Visit Diagnoses Diagnosis Metabolic syndrome Dysmetabolic Syndrome X Encounter for long-term (current) use of medications Encounter for long-term (current) use of other medications documented in this encounter Advance Directives Latest Code Status on File Code Status Date Activated Date Inactivated Comments Full Code 03/06/2015 6:49 PM 03/12/2015 8:22 PM This or will reflects the patients wishes and were consensually agreed upon. Question Answer Comments Discussion of Advance Directives occurred with: Not Discussed Care Teams Child Protective Services Specialist Relationship Specialty Start Date End Date Annabella Renteria PA-C [address] [facility] [place] [address] PCP - General Physician Remote Broadcast Engineer 06/07/22 documented as of this encounter
--- OUTSIDE RECORDS SUMMARY | 2024-01-02 04:26 | External Medical Summary ---
Author Name Unknown Address Unknown Organization K01[place] [place] [facility] [address] [place] [address] Laboratory Report Ordering Provider Test Date Status JULIANO LEACH 08/30/2023 09:12:37 Final Observation Date Value Abnormality Reference (Units ) Status WBC, Total 08/30/2023 09:12:37 6.22 4.00-10.80 (K/uL) Final RBC 08/30/2023 09:12:37 5.14 4.50-5.25 (M/uL) Final Hemoglobin 08/30/2023 09:12:37 16.1 14.0-16.8 (g/dL) Final HCT 08/30/2023 09:12:37 49.4 Above high normal 40.0-48.4 (%) Final MCV 08/30/2023 09:12:37 96.1 82.0-99.5 (fL) Final MCH 08/30/2023 09:12:37 31.3 27.0-34.0 (pg) Final MCHC 08/30/2023 09:12:37 32.6 32.0-36.0 (g/dL) Final RDW 08/30/2023 09:12:37 12.7 11.5-15.5 (%) Final Platelets 08/30/2023 09:12:37 240 140-400 (K/uL) Final MPV 08/30/2023 09:12:37 9.7 6.6-11.1 (fL) Final Nucleated erythrocytes/100 leukocytes [Ratio] in Blood by Automated count 08/30/2023 09:12:37 0 <=0 (/100 WBCs) Final Performing Location [facility] [place] [address] [place] [address]
--- OUTSIDE RECORDS SUMMARY | 2024-01-02 04:26 | External Medical Summary | Summary of Care ---
Author Name Unknown Organization [facility] Address [address] [facility] [place] [address] Phone [phone] Care Team Providers Care Pharmaceutical Engineer Name Role Phone Annabella Renteria PA-C Primary Care Provider [phone] [phone] Reason for Visit * Reason Comments Acute Intermittent lower b ack pain-flared over the last few days. Went to [place] on [address] Encounter Details Date Type Department Care Team (Latest Contact Info) Description 08/30/2023 8:40 AM EST Office Visit [facility] [address] [place] [address] January, Maxim Agrawal MD [address] [place] [address] Flank pain*; Lumbar spine pain; [...] the lumbar paraspinal muscles especially on the [id number]-[id number]-ujok-right. Slightly diminished forward flexion due to pain. [...] last few days. Went to Er on [address] documented in this encounter Plan of Treatment Upcoming Encounters Date Type Department Care Team (Late st Contact Info) Description 09/08/2023 8:00 AM EST Office Visit [facility] [address] [place] [address] Annabella Renteria PA-C [address] [place] [address] 10/25/2023 8:00 AM EST Nutrition Services Nutrition & Weight Management, [facility] [address] [facility] [place] [address] Elena Aviles RDN [address] [facility] [place] [address] 11/21/2023 8:40 AM EDT Telemedicine Nutrition & Weight Management, [facility] [address] [address] [place] [address] Niya Guerrero PA-C [address] [facility] [place] [address] Scheduled Orders Name Type Priority Associated Diagnoses Orde r Schedule URINALYSIS, POINT OF CARE (ENTER/EDIT) Point of Care Testing Routine Flank pain Ordered: 08/30/2023 Health Maintenance Due Date Last Done Comments [...] this encounter Medical Devices Implanted Type Area Buyer Agent Device Identifier Shelf Expiration Date Model / Serial / Lot Washer 13.0mm 219.99 - [id number] Implanted:Qty: 1 on 03/09/2015 by Kraig Snyder MD at [place] [facility] [place] Left: Hip SYNTHES 219.99 / / documented as of this encounter Visit Diagnoses Diagnosis Flank pain- [...] Directives occurred with: Not Discussed Care Teams Pharmaceutical Engineer Relationship Specialty Start Date End Date Annabella Renteria PA-C [address] [facility] [place] [address] PCP - General Physician Navigation Officer 06/07/22 documented as of this encounter
--- OUTSIDE RECORDS SUMMARY | 2024-01-02 04:26 | External Medical Summary ---
Author Name Unknown Address Unknown Organization K01:[facility] [place] [address] [place] [address] Laboratory Report Ordering Provider Test Date Status JENNIFER PAEZ 08/30/2023 09:12:37 Final Observation Date Value Abnormality Reference (Units ) Status BUN 08/30/2023 09:12:37 11 6-20 (mg/dL) Final Creatinine 08/30/2023 09:12:37 0.8 0.6-1.2 (mg/dL) Final Glomerular filtration rate/1.73 sq M.predicted [Volume Rate/Area] in Serum, Plasma or Blood by Creatinine-based formula (CKD-EPI) 08/30/2023 09:12:37 >90 >=60 (mL/min) Final eGFR is calculated based on the CKD-EPI 2020 equation SODIUM 08/30/2023 09:12:37 140 135-146 (m mol/L) Final Potassium 08/30/2023 09:12:37 4.3 3.5-5.1 (m mol/L) Final Cl 08/30/2023 09:12:37 105 98-107 (mm ol/L) Final CO2 08/30/2023 09:12:37 24 22-32 (mmo l/L) Final Anion gap 08/30/2023 09:12:37 11 7-15 (mmol /L) Final Glucose 08/30/2023 09:12:37 81 70-120 (mg /dL) Final Albumin 08/30/2023 09:12:37 4.6 3.8-5.0 (g /dL) Final AST (Aspartate aminotransferase) 08/30/2023 09:12:37 15 10-50 (U/L) Final Alk Phos 08/30/2023 09:12:37 95 35-130 (U/ L) Final Bilirubin, Total 08/30/2023 09:12:37 0.4 <=1 .2 (mg/dL) Final Calcium 08/30/2023 09:12:37 9.1 8.4-10.2 ( mg/dL) Final Protein 08/30/2023 09:12:37 6.7 6.0-8.3 (g /dL) Final ALT (Alanine aminotransferase) 08/30/2023 09:12:37 20 10-50 (U/L) Final Performing Location [facility]ORY [facility] [place] - [facility] [address] [facility] [address]
[2024-01-02 06:01] LABS: Basophils # (auto) 0.03 K/uL (0.00-0.20); Basophils % (auto) 0.6 %; Eosinophils # (auto) 0.17 K/uL (0.00-0.50); Eosinophils % (auto) 3.2 %; Hematocrit (blood only) 34.8 % (42.0-52.0); Immature Granulocytes # (auto) 0.01 K/uL (0.01-0.20); Immature Granulocytes % (auto) 0.2 %; Lymphocytes # (auto) 1.74 K/uL (1.20-3.40); Lymphocytes % (auto) 32.8 %; Mean Corpuscular Hgb Conc 34.5 g/dL (32.0-36.0); Mean Corpuscular Volume 89.9 fL (80.0-100.0); Mean Platelet Volume 9.3 fL (9.4-12.4); Monocytes % (auto) 13.2 %; Neutrophils # (auto) 2.66 K/uL (1.40-6.50); Platelet Count 191 K/uL (130-400); RDW Coefficient of Variation 12.6 % (11.5-14.5); RDW Standard Deviation 41.6 fL (36.4-46.3); Red Blood Count 3.87 M/uL (4.70-6.10); White Blood Count 5.31 K/ul (4.8-10.8)
[2024-01-02 06:03] LABS: BUN Creatinine Ratio 14.7 (10-20); Calcium 8.3 mg/dl (8.6-10.3); Creatinine Clr Calc Pharmacy 187.9 ml/min; Est GFR (African American) 126.4 ml/min; Magnesium 1.7 mg/dl (1.7-2.4); Potassium 3.7 mmol/L (3.5-5.1)
[2024-01-02 07:06] LABS: Estimated Average Glucose 103 mg/dl; Hemoglobin A1C 5.2 % (4.5-5.6)
--- NOTE | 2024-01-02 09:21 | Pharmacy Report ---
Pharmacy PK ABX Note - Date of Service January 02, 2024 - Assessment and Plan Assessment 53 year old M receiving vancomycin/Zosyn for treatment of right foot abscess and fifth metatarsal osteomyelitis. Pertinent microbiologic data includes: blood and surface foot cultures pending Day # 1 of antimicrobial therapy. Plan Vancomycin * Loading dose: 2750 mg IV x 1 * Maintenance dose: 1250 mg IV every 8 hours * Regimen is predicted to achieve target AUC/MARIA GUADALUPE of 400-600 mg/L.hr * Trough level ordered for: 01/03/24 @ 0330 Pharmacy will continue to follow and will adjust dose/frequency as necessary. Thank you. Pharmacy has transitioned to AUC monitoring for vancomycin. AUC/MARIA GUADALUPE is the preferred PK/PD target and is associated with decreased risk of nephrotoxicity compared to traditional trough targets.
[2024-01-02] MEDS: FUROSEMIDE 20 MG TAB PO SCH (10:03)
[2024-01-02] MEDS: BACLOFEN 20 MG TAB PO SCH (10:03)
--- NOTE | 2024-01-02 12:54 | Podiatry Consultation ---
Date of Consultation January 02, 2024 Assessment & Plan (1) Obesity: (2) Osteomyelitis: Laterality: right Osteomyelitis location: foot Osteomyelitis type: unspecified type Qualified Code(s): M86.9 - Osteomyelitis, unspecified (3) Abscess of right foot: (4) Foot abscess, right: Plan Pt seen at bedside. Foot is much better appearing than CT suggests. This could be because of an abscess surrounding the prior "fusion". Either way, plan for an I&D with bone biopsy before definitie amputation. Can get this I&D done later today in the OR. All questions answered. Will establish further care once this is explored surgically. History of Present Illness Reason for Consultation: Right foot infection/Osteomyelitis Attending Physician: Pardeep Klein MD History of Present Illness Patient seen at bedside. He states that he came to the hospital with this worsening right foot infection. He denies any specific pain but states that he is very neuropathic. He has a history of Charcot neuroarthropathy and foot surgeries and infections for this. Recently, he was seeing his accounting bookkeeper who shaved a callus off of the outside of the right foot as well as removed a forei gn body from the top of the outside of the right foot. Since then, last week, he has noticed increasing swelling, drainage, and redness to the foot. Because of this, he sought further treatment. He denies any systemic signs or symptoms of infection. He has had a fourth and fifth metatarsal "fusion" to help change the position of a callus that he was developing along the foot. He states that this did heal uneventfully but he has developed a another callus adjacent to this wound. He does state that he is waiting for a right hip replacement revision, though does not have a date scheduled for this yet. When discussing tear of his foot infection now, he states he is ready to "cut the entire leg off" because of this hip failure. Otherwise, he denies any other recent medical history changes. Allergies Allergy/AdvReac Type Severity Reaction Status Date / Time No Known Allergies Allergy Unverified 02/10/20 10:14 Home Medications Medication Instructions Recorded Confirmed Type baclofen 20 mg tablet 20 mg PO BID 01/01/24 01/01/24 History furosemide 20 mg tablet 20 mg PO DAILY 01/01/24 01/01/24 History metformin 500 mg tablet,extended 1,000 mg PO BID 01/01/24 01/01/24 History release 24 hr ropinirole 1 mg tablet 1 mg PO BID 01/01/24 01/01/24 History semaglutide (weight loss) 2.4 2.4 mg subcut WK 01/01/24 01/01/24 History mg/0.75 mL subcutaneous pen injector (Dutch) Patient History Medical History (Updated 01/02/24 @ 13:34 by Avtar Pickard MD) 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 Charcot's joint of right foot Morbid obesity Sleep apnea Noncompliant with CPAP Acid reflux DIETARY CONTROLLED Osteoarthritis Degenerative disc disease Restless leg syndrome High cholesterol Lung contusion Left acetabular fracture Surgical History History of right hip replacement History of testicular surgery A CHILD History of hand surgery L/MIDDLE/3 PINS History of hip surgery L/PLATE & SCREWS Family History Father Family history of non-Hodgkin's lymphoma Sister Family history of ovarian cancer Other Family history of testicular cancer Social History Smoking Status: Current every day smoker Tobacco Type: Cigarettes Cigarettes Per Day: 1-2 CIGS A DAY, TRYING TO QUIT - ADVISED NPO; Second Hand Exposure: No; Do You Dip or Chew Tobacco: No; Hx Alcohol Use: Yes Alcohol type: beer Hx Substance Use: No Preferred Language: French Communication Ability: Effective Creative Specialist Required: No Beliefs That Will Affect Care: None marital status: Current Living Situation: Spouse and Family Current Living Situation Comment: , son, 2 daughters, 3 grandchildren Feels Safe at Home: Yes Assistive Devices: None Review of Systems Review of Systems: All systems reviewed & are unremarkable except as noted in HPI & below Constitutional: no fever, no chills and no fatigue Eyes: no problem reported Ear, Nose, Mouth, Throat: no problem reported Respiratory: no problem reported Cardiovascular: + edema; no problem reported Gastrointestinal: no nausea, no vomiting and no problem reported Musculoskeletal: no problem reported Integumentary: + bleeding lesions, + skin ulcer, + woun ds and + erythema Neurologic: + loss of sensation, + numbness and + pa resthesia; no generalized weakness Psychiatric: no problem reported Physical Exam Physical Exam: Right lower extremity focused exam: DP/PT pulses 2/4 bilaterally. CFT is brisk to the digits. Skin is supple and well hydrated. Severe hallux valgus is appreciated, with arthritic changes noted throughout the first metatarsal phalangeal joint, first tarsometatarsal joint, and fifth metatarsal phalangeal joint. This is noted on clinical exam as well as radiographs/CT exam. There is a pre-ulcerative callus underlying the fifth metatarsal phalangeal joint with some local discoloration and retained calloused skin. There is also a dorsal ulceration, which could be consistent with a prior puncture wound and/or foreign body. Approximately gentle debridement of this, immediate purulent drainage and minimal bleeding was noted. A small abscess was able to be drained this way at bedside. The depth of this was uncertain. According to CT imaging, this does extend to the fifth metatarsal head. CT is suggestive of osteomyelitis, though with his history of an arthrodesis here, that is a potential explanation. No hardware is maintained on this imaging. No ascending cellulitis is appreciated, though the foot is globally erythematous and edematous. No severe rocker bottom deformity is appreciated, though a rigid flatfoot deformity is appreciated. Constitutional: WD/WN, vitals as above + ill appearing and + morbidly obese Eyes: PERRL, conjunctivae normal, anicteric sclerae ENMT: external ear and nose normal, oropharynx normal Neck: trachea midline, no thyromegaly normal visual inspection Respiratory: normal respiratory effort; no respiratory distress Cardiovascular: Rate/Rhythm: regular rate and regular rhythm Chest (Breasts): Chest: normal inspection of chest Gastrointestinal (Abdomen): Inspection/Auscultation: abdomen normal to inspection Percussion/Palpation: + abdomen tender and abdomen soft Musculoskeletal: no cyanosis or clubbing, extremities motor strength 5/5 Head/Neck/Chest: normocephalic and head atraumatic Extremities: extremities normal to inspection Skin: + ulcer, + wound, + erythema, + fluctula nce and + fistulous tract Neurologic: moves all extremities and awake; + abnormal sensation to monofilament and no focal motor deficits Psychiatric: A+Ox3, euthymic affect Results & Data Vital Signs (Past 12 Hours) Vital Signs Temp Pulse Resp BP Pulse Ox O2 Del Method 01/02/24 07:22 36.5 C 75 16 132/81 95 Room Air Diagnostic Findings CT imaging was reviewed and reveals extensive arthritic changes throughout the midfoot and forefoot. This is consistent with prior mild Charcot neuroarthropathy. There is evidence of extensive arthritis to the first metatarsophalangeal joint as well as this affected fifth metatarsal head. This could be consistent with prior surgical intervention or osteomyelitis. There is an overlying cyst to the fifth metatarsal head, consistent with clinical exam
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
--- NOTE | 2024-01-02 13:34 | Anesthesiology Consultation ---
Date of Service January 02, 2024 Assessment & Plan (1) Encounter for pre-operative examination: Chart Review Chart Review: Acceptable Risk for Surgery History Surgery Operation Date: 01/02/24 08:50 Proposed Procedures p Right 5th Ray Resection - Vladimir Hager, KATRIN Height/Weight Height: 6 ft 4 in Weight: 134.2 kg Allergies Allergy/AdvReac Type Severity Reaction Status Date / Time No Known Allergies Allergy Unverified 02/10/20 10:14 Medications Home Medications Medication Instructions Recorded Confirmed Last Taken baclofen 20 mg tablet 20 mg PO BID 01/01/24 01/01/24 Unknown furosemide 20 mg tablet 20 mg PO DAILY 01/01/24 01/01/24 Unknown metformin 500 mg tablet,extended 1,000 mg PO BID 01/01/24 01/01/24 Unknown release 24 hr ropinirole 1 mg tablet 1 mg PO BID 01/01/24 01/01/24 Unknown semaglutide (weight loss) 2.4 2.4 mg subcut WK 01/01/24 01/01/24 Unknown mg/0.75 mL subcutaneous pen injector (Dutch) Active Medications Generic Name Dose Route Start Last Admin Trade Name Freq PRN Reason Stop Dose Admin Baclofen 20 mg 01/02/24 09:00 01/02/24 10:03 Baclofen 20 Mg Tab PO 02/01/24 08:59 20 mg BID TAYLA Administration Furosemide 20 mg 01/02/24 09:00 01/02/24 10:03 Furosemide 20 Mg Tab PO 02/01/24 08:59 20 mg DAILY TAYLA Administration Sodium Chloride 1,000 mls @ 100 mls/hr 01/01/24 22:09 01/02/24 09:54 Nss IV 01/02/24 18:08 100 mls/hr .Q10H TAYLA Administration Piperacillin Sod/Tazobactam 100 mls @ 25 mls/hr 01/02/24 02:00 01/02/24 09:54 Sod 4.5 gm/ Dextrose IV 01/09/24 01:59 25 mls/hr Q8H TAYLA Administration Protocol Vancomycin HCl 1,250 mg/ 275 mls @ 200 mls/hr 01/02/24 04:00 01/02/24 05:39 Sodium Chloride IV 01/09/24 03:59 Infused Q8H TAYLA Infusion Ropinirole HCl 1 mg 01/01/24 22:09 01/02/24 10:02 Ropinirole Hcl 1 Mg Tablet PO 01/31/24 22:08 1 mg BID TAYLA Administration Past Medical History Medical History (Updated 01/02/24 @ 13:34 by Avtar Pickard MD) 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 Charcot's joint of right foot Morbid obesity Sleep apnea Noncompliant with CPAP Acid reflux DIETARY CONTROLLED Osteoarthritis Degenerative disc disease Restless leg syndrome High cholesterol Lung contusion Left acetabular fracture Past Family History Family History Father Family history of non-Hodgkin's lymphoma Sister Family history of ovarian cancer Other Family history of testicular cancer Past Surgical History Surgical History History of right hip replacement History of testicular surgery A CHILD History of hand surgery L/MIDDLE/3 PINS History of hip surgery L/PLATE & SCREWS Social History Smoking Status: Current every day smoker tobacco type: cigarettes and smokeless tobacco Smoking cigarettes per day: 1-2 CIGS A DAY, TRYING TO QUIT - ADVISED NPO Do You Dip or Chew Tobacco: No Hx Alcohol Use: Yes Alcohol type: beer alcohol intake frequency: holidays/special occasions only Hx Substance Use: No substance use type: does not use Physical Exam Vital Signs Last Vital Signs Temp 36.5 C 01/02/24 07:22 Pulse 75 01/02/24 07:22 Resp 16 01/02/24 07:22 BP 132/81 01/02/24 07:22 Pulse Ox 95 01/02/24 07:22 O2 Del Method Room Air 01/02/24 07:22 Testing Laboratory Results 01/02/24 05:26 01/02/24 05:26 Hemoglobin A1c 5.2 % (4.5-5.6) 01/02/24 05:26 01/01/24 19:32 Gram Stain - Final Foot,Right Aerobic and Anaerobic Culture - Preliminary No growth to date. 01/02/24 01/02/24 11:59 05:53 POC Glucose 95 93
[2024-01-02] MEDS ORDERED: MIDAZOLAM HCL 1 MG/ML 2ML VIAL ONE (16:36)
[2024-01-02] MEDS ORDERED: LIDOCAINE 2% 2 ML VIAL/AMP(20MG/ML) INFIL ONE (16:36)
[2024-01-02] MEDS ORDERED: PROPOFOL IV EMULSION 10 MG/ML 20 ML VIAL IV ONE (16:36)
[2024-01-02] MEDS ORDERED: fentaNYL citrate PF 100 MCG/2 ML VIAL ONE (16:36)
[2024-01-02] MEDS ORDERED: KETAMINE HCL INJ 50 MG/ML 10 ML VIAL ONE (16:44)
--- NOTE | 2024-01-02 16:54 | History & Physical Bridge Note ---
Date of Service January 02, 2024 History & Physical Bridge Note I have examined the patient, reviewed the History & Physical and in the interval since the performance of the History & Physical I have noted the following changes of clinical significance: no changes noted
[2024-01-02] MEDS ORDERED: SODIUM CHLORIDE 0.9% PF INJ 10 ML VIAL ONE (17:17)
[2024-01-02] MEDS ORDERED: ePHEDrine sulfate 50 MG/ML AMP IV PRN (17:19)
[2024-01-02] MEDS ORDERED: ONDANSETRON INJ 2 MG/ML 2 ML VIAL IV PRN (17:19)
[2024-01-02] MEDS ORDERED: ATROPINE SULFATE 0.1 MG/ML 10ML SYR IV PRN (17:19)
[2024-01-02] MEDS ORDERED: fentaNYL citrate PF 100 MCG/2 ML VIAL IV PRN (17:19)
--- NOTE | 2024-01-02 17:51 | Post Operative Brief Note ---
Immediate Post Op Note v1 Date of Surgery January 02, 2024 Pre & Post Diagnosis Operation Date: 01/02/24 08:50 Pre-Op Diagnosis: Right Foot Abscess and Osteomyelitis Post-Op Diagnosis: Right Foot Abscess and Osteomyelitis I identified the patient and participated in the time-out.: Yes Procedure Operation Date: 01/02/24 08:50 Actual Procedures Right fifth metatarsal wound I&D Surgeon ANGIE GutierrezM Dental Service Technician None Estimated Blood Loss 5 Findings Consistent with Post-Op Diagnosis No bone involvement identified Anesthesia Type MAC Complications none Disposition Accompanied Patient To Recovery: Yes Disposition: Recovery Room
[2024-01-02] MEDS: BUPIVACAINE 0.5 % 5 MG/1 ML MPF 30ML VIAL ONE (17:52)
--- NOTE | 2024-01-02 18:24 | Anesthesiology Progress Note ---
Date of Service January 02, 2024 Anesthesia Post Procedure Vital Signs Vital Signs: Temp Pulse Pulse Resp BP Pulse Ox O2 Del Method 01/02/24 18:10 36.5 C 68 14 116/68 93 Room Air 01/02/24 18:01 36.5 C 66 16 116/68 96 Nasal Cannula 01/02/24 17:10 36.7 C 68 18 130/76 94 Room Air 01/02/24 15:25 36.8 C 70 16 100/66 96 Room Air 01/02/24 07:22 36.5 C 75 16 132/81 95 Room Air 01/01/24 22:00 36.4 C L 79 16 123/78 96 Room Air 01/01/24 20:00 82 19 129/77 98 Room Air 01/01/24 19:00 81 19 123/75 97 Room Air 01/01/24 18:46 79 18 127/79 97 01/01/24 18:30 77 16 135/88 O2 Flow Rate 01/02/24 18:10 01/02/24 18:01 2 01/02/24 17:10 01/02/24 15:25 01/02/24 07:22 01/01/24 22:00 01/01/24 20:00 01/01/24 19:00 01/01/24 18:46 01/01/24 18:30 Transfer of Care Handoff Completed per policy Notes Mental Status: alert / awake / arousable Patient Amnestic to Procedure: Yes Nausea / Vomiting: adequately controlled Pain: adequately controlled Airway Patency, RR, SpO2: stable & adequate BP & HR: stable & adequate Hydration State: stable & adequate Anesthetic Complications: no major complications apparent and Pt Satisfied with anesthetic care
[2024-01-03 03:38] LABS: Basophils # (auto) 0.03 K/uL (0.00-0.20); Basophils % (auto) 0.6 %; Eosinophils # (auto) 0.17 K/uL (0.00-0.50); Eosinophils % (auto) 3.4 %; Hematocrit (blood only) 35.5 % (42.0-52.0); Hemoglobin 12.3 g/dl (14.0-18.0); Immature Granulocytes # (auto) 0.02 K/uL (0.01-0.20); Immature Granulocytes % (auto) 0.4 %; Lymphocytes # (auto) 1.85 K/uL (1.20-3.40); Lymphocytes % (auto) 37.1 %; Mean Corpuscular Hgb Conc 34.6 g/dL (32.0-36.0); Mean Corpuscular Volume 89.4 fL (80.0-100.0); Mean Platelet Volume 9.3 fL (9.4-12.4); Monocytes # (auto) 0.59 K/uL (0.11-0.59); Monocytes % (auto) 11.8 %; Neutrophils # (auto) 2.32 K/uL (1.40-6.50); Neutrophils % (auto) 46.7 %; Platelet Count 193 K/uL (130-400); RDW Coefficient of Variation 12.3 % (11.5-14.5); RDW Standard Deviation 40.2 fL (36.4-46.3); Red Blood Count 3.97 M/uL (4.70-6.10); White Blood Count 4.98 K/ul (4.8-10.8)
[2024-01-03 03:55] LABS: Albumin Globulin Ratio 1.3 (0.9-2); Albumin Level 3.4 gm/dl (3.4-5.0); BUN Creatinine Ratio 12.6 (10-20); Bilirubin,Total 0.3 mg/dl (0.2-1.0); Calcium 8.1 mg/dl (8.6-10.3); Creatinine Clr Calc Pharmacy 146.9 ml/min; Est GFR (African American) 114.2 ml/min; Est GFR (Non-African American) 98.5 ml/min; Globulin 2.7 gm/dl (2.5-4.0); Magnesium 1.9 mg/dl (1.7-2.4); Phosphorus 3.7 mg/dl (2.5-4.9); Potassium 4.1 mmol/L (3.5-5.1); Total Protein 6.1 gm/dl (6.0-8.3)
[2024-01-03 04:14] LABS: Ferritin 319.8 ng/ml (8-388)
[2024-01-03 04:51] LABS: Folate (Folic Acid),Ser orPlas 18.49 ng/ml (>5.38)
[2024-01-03] MEDS: VANCOMYCIN LEVEL ONE (05:39)
--- NOTE | 2024-01-03 08:19 | Pharmacy Report ---
Pharmacy PK ABX Note - Date of Service January 03, 2024 - Assessment and Plan Assessment 53 year old M receiving vancomycin/Zosyn for treatment of right foot abscess and fifth metatarsal osteomyelitis. Pertinent microbiologic data includes: blood and foot cultures pending. ID consult pending. WBC wnl, Afebrile, renal function stable. Day # 3 of antimicrobial therapy. Plan Vancomycin * Current regimen: 1250 mg IV every 8 hours * Trough level obtained 01/03/24 resulted as 9.8 mcg/mL. This is NOT predicted to achieve target AUC/MARIA GUADALUPE of 400-600 mg/L.hr * Change to 1500 mg IV every 8 hours * Repeat trough level ordered for: 01/04/24 * Pharmacy has transitioned to AUC monitoring for vancomycin. AUC/MARIA GUADALUPE is the preferred PK/PD target and is associated with decreased risk of nephrotoxicity compared to traditional trough targets. Zosyn 4.5g IV q8h
[2024-01-03] MEDS: VANCOMYCIN HCL 1,500 MG in SODIUM CHLORIDE 0.9% 500 ML IV SCH (09:15)
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
--- NOTE | 2024-01-03 12:16 | Infectious Disease Consult ---
Date of Service January 03, 2024 Telehealth Information I performed this visit using a real-time telehealth connection between my location and the patients location ([facility]). After connecting through interactive tele-video, patient was identified by name and date of and/or wristband check.Patient (or authorized healthcare guest service representative) was informed that this was a telemedicine visit and it was being conducted confidentially over secure lines. My office door was closed and no one else was present in the room with me.Patient (or authorized healthcare guest service representative) provided consent to proceed with the visit, expressed an understanding of privacy and security of the telemedicine visit, and gave permission to have a hospital guest service representative in the room in order to assist with the visit and to conduct portions of the visit, as needed. I informed the patient (or authorized healthcare guest service representative) that I reviewed their record and presented the opportunity for them to ask any questions regarding the visit today. The patient agreed to participate. Assessment & Plan (1) Osteomyelitis: Plan 53-year-old male with a history of metabolic syndrome presenting for worsening of right foot plantar ulcer. Has been given a course of Keflex by optical lathe operator as outpatient prior current presentation with worsening of infection to include the top of his foot. He was s/p I&D by Podiatry Services on 01/01, noted to have no bony involvement on gross inspection. Currently pending intraoperative wound cultures. We will opt to cover prior Enterococcus faecalis and Finegoldia magna. Right foot plantar ulcer with abscess s/p I&D Right foot cellulitis concern for osteomyelitis on CT imaging of 5th metatarsal history of Enterococcus faecalis right foot wound infection plan: - discontinue vancomycin and Zosyn - start Unasyn 3 g IV q.6 hours - plan to treat for a total 6 weeks from 01/01 through 02/12 - obtain a CBC and CMP weekly, CRP Q2 weekly - please obtain baseline CRP while in hospital - if wound culture becomes positive please tiger text ID and we will review - ID will sign off at this time case discussed with ID attending Dr. Mynor Guerra MD Infectious Disease PGY-4 [facility] I was present and directly participated in the evaluation of this patient and I agree with the above assessment and plan Cm Martin MD History of Present Illness History of Present Illness 53-year-old male with a past medical history of Enterococcus faecalis ( S -amp) right foot wound infection, right total hip replacement,metabolic syndrome, short joint of right ankle and foot, polyneuropathy presenting for right foot ulcer. Patient seen by Podiatry last week for right foot plantar ulcer and was prescribed Keflex. Since being on the medication patient noticed that he had some swelling and erythema progress up the foot and he subsequently sought further evaluation. On initial presentation 01/01 blood pressure 127/76 pulse 61 T 36.5 C respiratory rate 20, WBC remains within normal limits. CT right foot showing erosive/destructive change involving the 5th metatarsal head/neck with presumed pathologic fracture, highly suspicious for osteomyelitis. Multiloculated fluid collection extending from the dorsum of the foot to the plantar aspect consistent with abscess. Patient underwent OR trip on 01/[address] Hager for I&D of the abscess, noted no osseous involvement. Currently pending wound cultures, blood cultures negative to date. Currently patient on vancomycin and Zosyn. Allergies Allergy/AdvReac Type Severity Reaction Status Date / Time No Known Allergies Allergy Unverified 02/10/20 10:14 Home Medications Medication Instructions Recorded Confirmed Type baclofen 20 mg tablet 20 mg PO BID 01/01/24 01/01/24 History furosemide 20 mg tablet 20 mg PO DAILY 01/01/24 01/01/24 History metformin 500 mg tablet,extended 1,000 mg PO BID 01/01/24 01/01/24 History release 24 hr ropinirole 1 mg tablet 1 mg PO BID 01/01/24 01/01/24 History semaglutide (weight loss) 2.4 2.4 mg subcut WK 01/01/24 01/01/24 History mg/0.75 mL subcutaneous pen injector (Wegovy) Patient History Medical History (Updated 01/03/24 @ 15:58 by Avtar Guerra MD) 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 Charcot's joint of right foot Morbid obesity Sleep apnea Noncompliant with CPAP Acid reflux DIETARY CONTROLLED Osteoarthritis Degenerative disc disease Restless leg syndrome High cholesterol Lung contusion Left acetabular fracture Surgical History History of right hip replacement History of testicular surgery A CHILD History of hand surgery L/MIDDLE/3 PINS History of hip surgery L/PLATE & SCREWS Family History Father Family history of non-Hodgkin's lymphoma Sister Family history of ovarian cancer Other Family history of testicular cancer Social History Smoking Status: Current every day smoker Tobacco Type: Cigarettes Cigarettes Per Day: 1-2 CIGS A DAY, TRYING TO QUIT - ADVISED NPO; Second Hand Exposure: No; Do You Dip or Chew Tobacco: No; Hx Alcohol Use: Yes Alcohol type: beer Hx Substance Use: No Preferred Language: Turkish Communication Ability: Effective Magnetic Healer Required: No Beliefs That Will Affect Care: None marital status: Current Living Situation: Spouse and Family Current Living Situation Comment: , son, 2 daughters, 3 grandchildren Feels Safe at Home: Yes Safety Concerns: Feels Safe At This Time Assistive Devices: None Review of Systems Constitutional: No weight loss/gain, fatigue, fever, loss of appetite Eyes: No pain, drainage, vision change HENT: No ear pain/drainage, sinus infections, hearing loss Cardiovascular: No chest pain, palpitations, lower extremity swelling Respiratory: No shortness of breath, wheezing, cough, sputum production Gastrointestinal: No abdominal pain, nausea/vomiting, indigestion/heartburn Skin: purple discoloration and erythema on dorsal aspect of foot at admission, ulcer plantar aspect of right 5th toe Neurological: No dizziness, weakness, confusion, sensory changes Physical Exam telemedicine, no physical exam Results & Data Vital Signs (Past 12 Hours) Vital Signs Temp Pulse Resp BP BP Pulse Ox O2 Del Method 01/03/24 11:32 36.8 C 70 20 104/71 94 Room Air 01/03/24 07:25 36.5 C 68 18 116/77 95 Room Air 01/03/24 03:34 36.6 C 75 16 114/68 95 Room Air Laboratory Results Laboratory Results - last 48 hr 01/01/24 01/01/24 01/02/24 17:00 22:18 00:06 WBC 9.42 RBC 4.40 L Hgb 13.6 L Hct 39.1 L MCV 88.9 MCH 30.9 MCHC 34.8 RDW Std Deviation 40.9 RDW Coeff of Kenny 12.4 Plt Count 212 MPV 9.4 Immature Gran % (Auto) 0.2 Neut % (Auto) 75.7 Lymph % (Auto) 15.9 [place] % (Auto) 7.3 Eos % (Auto) 0.7 Baso % (Auto) 0.2 Neut # (Auto) 7.12 H Lymph # (Auto) 1.50 [place] # (Auto) 0.69 H Eos # (Auto) 0.07 Baso # (Auto) 0.02 Immature Gran # (Auto) 0.02 Sodium 137 Potassium 3.9 Chloride 103 Carbon Dioxide 24 Anion Gap 10 BUN 16 Creatinine 0.81 Est Cr Clr Drug Dosing 157.8 Est GFR ( Amer) 117.6 Est GFR (Non-Af Amer) 101.5 BUN/Creatinine Ratio 19.8 Glucose 95 POC Glucose 88 101 H Estimat Average Glucose Hemoglobin A1c Lactate 0.9 Calcium 9.2 Phosphorus Magnesium 1.7 Iron Transferrin Ferritin Total Bilirubin 0.7 AST 22 ALT 25 Alkaline Phosphatase 73 Total Protein 7.4 Albumin 4.0 Globulin 3.4 Albumin/Globulin Ratio 1.2 Vitamin B12 Folate Random Vancomycin 01/02/24 01/02/24 01/02/24 05:26 05:53 11:59 WBC 5.31 RBC 3.87 L Hgb 12.0 L Hct 34.8 L MCV 89.9 MCH 31.0 MCHC 34.5 RDW Std Deviation 41.6 RDW Coeff of Kenny 12.6 Plt Count 191 MPV 9.3 L Immature Gran % (Auto) 0.2 Neut % (Auto) 50.0 Lymph % (Auto) 32.8 [place] % (Auto) 13.2 Eos % (Auto) 3.2 Baso % (Auto) 0.6 Neut # (Auto) 2.66 Lymph # (Auto) 1.74 [place] # (Auto) 0.70 H Eos # (Auto) 0.17 Baso # (Auto) 0.03 Immature Gran # (Auto) 0.01 Sodium 138 Potassium 3.7 Chloride 106 Carbon Dioxide 25 Anion Gap 7 BUN 10 Creatinine 0.68 Est Cr Clr Drug Dosing 187.9 Est GFR ( Amer) 126.4 Est GFR (Non-Af Amer) 109.0 BUN/Creatinine Ratio 14.7 Glucose 105 H POC Glucose 93 95 Estimat Average Glucose 103 Hemoglobin A1c 5.2 Lactate Calcium 8.3 L Phosphorus Magnesium 1.7 Iron Transferrin Ferritin Total Bilirubin AST ALT Alkaline Phosphatase Total Protein Albumin Globulin Albumin/Globulin Ratio Vitamin B12 Folate Random Vancomycin 01/03/24 03:18 WBC 4.98 RBC 3.97 L Hgb 12.3 L Hct 35.5 L MCV 89.4 MCH 31.0 MCHC 34.6 RDW Std Deviation 40.2 RDW Coeff of Kenny 12.3 Plt Count 193 MPV 9.3 L Immature Gran % (Auto) 0.4 Neut % (Auto) 46.7 Lymph % (Auto) 37.1 [place] % (Auto) 11.8 Eos % (Auto) 3.4 Baso % (Auto) 0.6 Neut # (Auto) 2.32 Lymph # (Auto) 1.85 [place] # (Auto) 0.59 Eos # (Auto) 0.17 Baso # (Auto) 0.03 Immature Gran # (Auto) 0.02 Sodium 138 Potassium 4.1 Chloride 107 Carbon Dioxide 26 Anion Gap 5 BUN 11 Creatinine 0.87 Est Cr Clr Drug Dosing 146.9 Est GFR ( Amer) 114.2 Est GFR (Non-Af Amer) 98.5 BUN/Creatinine Ratio 12.6 Glucose 109 H POC Glucose Estimat Average Glucose Hemoglobin A1c Lactate Calcium 8.1 L Phosphorus 3.7 Magnesium 1.9 Iron 48 Transferrin 180 L Ferritin 319.8 Total Bilirubin 0.3 AST 17 ALT 22 Alkaline Phosphatase 56 Total Protein 6.1 Albumin 3.4 Globulin 2.7 Albumin/Globulin Ratio 1.3 Vitamin B12 226 Folate 18.49 Random Vancomycin 9.8 L Diagnostic Findings Laboratory Results WBC 4.98 K/ul (4.8-10.8) 01/03/24 03:18 RBC 3.97 M/uL (4.70-6.10) L 01/03/24 03:18 Hgb 12.3 g/dl (14.0-18.0) L 01/03/24 03:18 Hct 35.5 % (42.0-52.0) L 01/03/24 03:18 MCV 89.4 fL (80.0-100.0) 01/03/24 03:18 MCH 31.0 pg (25.0-34.0) 01/03/24 03:18 MCHC 34.6 g/dL (32.0-36.0) 01/03/24 03:18 RDW Std Deviation 40.2 fL (36.4-46.3) 01/03/24 03:18 RDW Coeff of Kenny 12.3 % (11.5-14.5) 01/03/24 03:18 Plt Count 193 K/uL (130-400) 01/03/24 03:18 MPV 9.3 fL (9.4-12.4) L 01/03/24 03:18 Immature Gran % (Auto) 0.4 % 01/03/24 03:18 Neut % (Auto) 46.7 % 01/03/24 03:18 Lymph % (Auto) 37.1 % 01/03/24 03:18 [place] % (Auto) 11.8 % 01/03/24 03:18 Eos % (Auto) 3.4 % 01/03/24 03:18 Baso % (Auto) 0.6 % 01/03/24 03:18 Neut # (Auto) 2.32 K/uL (1.40-6.50) 01/03/24 03:18 Lymph # (Auto) 1.85 K/uL (1.20-3.40) 01/03/24 03:18 [place] # (Auto) 0.59 K/uL (0.11-0.59) 01/03/24 03:18 Eos # (Auto) 0.17 K/uL (0.00-0.50) 01/03/24 03:18 Baso # (Auto) 0.03 K/uL (0.00-0.20) 01/03/24 03:18 Immature Gran # (Auto) 0.02 K/uL (0.01-0.20) 01/03/24 03:18 Sodium 138 mmol/L (136-145) 01/03/24 03:18 Potassium 4.1 mmol/L (3.5-5.1) 01/03/24 03:18 Chloride 107 mmol/L (98-107) 01/03/24 03:18 Carbon Dioxide 26 mmol/L (21-32) 01/03/24 03:18 Anion Gap 5 (3-11) 01/03/24 03:18 BUN 11 mg/dl (6-23) 01/03/24 03:18 Creatinine 0.87 mg/dl (0.6-1.4) 01/03/24 03:18 Est Cr Clr Drug Dosing 146.9 ml/min 01/03/24 03:18 Est GFR ( Amer) 114.2 ml/min 01/03/24 03:18 Est GFR (Non-Af Amer) 98.5 ml/min 01/03/24 03:18 BUN/Creatinine Ratio 12.6 (10-20) 01/03/24 03:18 Glucose 109 mg/dl (70-99(Fasting)) H 01/03/24 03:18 POC Glucose 95 mg/dl (70-99) 01/02/24 11:59 Estimat Average Glucose 103 mg/dl 01/02/24 05:26 Hemoglobin A1c 5.2 % (4.5-5.6) 01/02/24 05:26 Lactate 0.9 mmol/L (0.4-2.0) 01/01/24 17:00 Calcium 8.1 mg/dl (8.6-10.3) L 01/03/24 03:18 Phosphorus 3.7 mg/dl (2.5-4.9) 01/03/24 03:18 Magnesium 1.9 mg/dl (1.7-2.4) 01/03/24 03:18 Iron 48 mcg/dl (35-175) 01/03/24 03:18 Transferrin 180 mg/dl (200-360) L 01/03/24 03:18 Ferritin 319.8 ng/ml (8-388) 01/03/24 03:18 Total Bilirubin 0.3 mg/dl (0.2-1.0) 01/03/24 03:18 AST 17 U/L (13-39) 01/03/24 03:18 ALT 22 U/L (7-52) 01/03/24 03:18 Alkaline Phosphatase 56 U/L (34-104) 01/03/24 03:18 Total Protein 6.1 gm/dl (6.0-8.3) 01/03/24 03:18 Albumin 3.4 gm/dl (3.4-5.0) 01/03/24 03:18 Globulin 2.7 gm/dl (2.5-4.0) 01/03/24 03:18 Albumin/Globulin Ratio 1.3 (0.9-2) 01/03/24 03:18 Vitamin B12 226 pg/ml (180-914) 01/03/24 03:18 Folate 18.49 ng/ml (>5.38) 01/03/24 03:18 Random Vancomycin 9.8 mcg/ml (10-20) L 01/03/24 03:[address] 01/01/24 16:43 CT SCAN OF THE RIGHT FOOT WITH IV CONTRAST CLINICAL HISTORY: Right foot infection. COMPARISON STUDY: Radiographs of the right foot dated 06/12/2021. CT scan of the right foot dated 07/02/2019. TECHNIQUE: CT scan of the right foot is performed from the distal tibia and fibular to the base of the foot. Images are reviewed in the axial, sagittal, and coronal planes. IV contrast was administered without complication. A dose lowering technique was utilized adhering to the principles of ALARA. Note that interpretation is significant with suboptimal without current plain film correlate. CT DOSE: 415.95 mGy.cm FINDINGS: The skeletal structures are osteopenic. There is erosive/destructive change involving the fifth metatarsal head/neck with presumed pathologic fracture. There is significant surrounding soft tissue edema and inflammation. A multiloculated fluid collection extending from the dorsum of the foot to the plantar aspect of the foot at this site around the fifth MTP is seen on sagittal image #11. This measures 5.4 x 2.5 x 2.0 cm in aggregate dimension. There is chronic deformity seen involving the second through fourth metatarsal necks. Severe degenerative change and erosion is again noted at the first metatarsophalangeal joint. [id number] osteoarthritic change is noted in the midfoot. Milder soft tissue edema is seen throughout the remainder of the foot. The ankle mortise is maintained. There is generalized atrophy of the regional musculature. The Achilles tendon is intact as visualized. IMPRESSION: 1. Erosive/destructive change is seen involving the fifth metatarsal head/neck with presumed pathologic fracture. This is highly suspicious for osteomyelitis. 2. There is surrounding inflammation with a multiloculated fluid collection extending from the dorsum of the foot to the plantar aspect of the foot at this site. This is consistent with abscess. 3. No additional foci of osteomyelitis are suspected. 4. Additional foci of chronic/degenerative change throughout the foot as above. ACT 112: Negative or not required by law. Dictated: 01/01/2024 6:40 PM Transcribed: 01/01/2024 7:14 PM Manoj [id number] [email or web address] Electronically signed by: Ender Leon M.D. 01/01/2024 7:15 PM
[2024-01-04] MEDS ORDERED: AMPICILLIN SOD/SULBACTAM SOD 3 GM VIAL IV SCH (09:15)
[2024-01-04] MEDS ORDERED: VANCOMYCIN LEVEL ONE (09:30)
[2024-01-04 10:00] LABS: Basophils # (auto) 0.02 K/uL (0.00-0.20); Basophils % (auto) 0.4 %; Hematocrit (blood only) 40.4 % (42.0-52.0); Hemoglobin 13.7 g/dl (14.0-18.0); Immature Granulocytes # (auto) 0.01 K/uL (0.01-0.20); Immature Granulocytes % (auto) 0.2 %; Lymphocytes # (auto) 1.58 K/uL (1.20-3.40); Lymphocytes % (auto) 31.8 %; Mean Corpuscular Hemoglobin 30.2 pg (25.0-34.0); Mean Corpuscular Hgb Conc 33.9 g/dL (32.0-36.0); Mean Corpuscular Volume 89.2 fL (80.0-100.0); Mean Platelet Volume 9.2 fL (9.4-12.4); Neutrophils # (auto) 2.76 K/uL (1.40-6.50); Neutrophils % (auto) 55.6 %; Platelet Count 240 K/uL (130-400); RDW Coefficient of Variation 12.2 % (11.5-14.5); RDW Standard Deviation 39.8 fL (36.4-46.3); Red Blood Count 4.53 M/uL (4.70-6.10); White Blood Count 4.97 K/ul (4.8-10.8)
[2024-01-04] MEDS: ADVANCED PROBIOTIC 625 MG CAPSULE PO SCH (10:03)
[2024-01-04] MEDS: AMPICILLIN/SULBACTAM SOD 3,000 MG in SODIUM CHLOR 0.9% MINI-B 100 ML IV SCH (10:04)
[2024-01-04 10:19] LABS: Albumin Globulin Ratio 1.1 (0.9-2); Albumin Level 3.7 gm/dl (3.4-5.0); BUN Creatinine Ratio 10.2 (10-20); Bilirubin,Total 0.4 mg/dl (0.2-1.0); Calcium 9.1 mg/dl (8.6-10.3); Creatinine Clr Calc Pharmacy 145.2 ml/min; Est GFR (African American) 113.7 ml/min; Est GFR (Non-African American) 98.1 ml/min; Globulin 3.3 gm/dl (2.5-4.0); Magnesium 1.9 mg/dl (1.7-2.4); Phosphorus 2.9 mg/dl (2.5-4.9); Potassium 3.7 mmol/L (3.5-5.1)
--- NOTE | 2024-01-04 13:52 | Post Operative Brief Note ---
Immediate Post Op Note v1 Date of Surgery January 04, 2024 Pre & Post Diagnosis Operation Date: 01/02/24 08:50 Pre-Op Diagnosis: Right Foot Abscess and Osteomyelitis Post-Op Diagnosis: Right Foot Abscess and Osteomyelitis I identified the patient and participated in the time-out.: Yes Procedure Operation Date: 01/02/24 08:50 Actual Procedures p Right Foot Incision and Drainage(Right) - Vladimir Hager DPM Surgeon Vladimir Hager DPM Court Abstractor None Estimated Blood Loss 5 Findings Consistent with Post-Op Diagnosis Wound 1.8x1.2x1.5cm with grandular base. 3cc holly green/calloway purulence extending directly to phalanx Anesthesia Type MAC Complications none Disposition Accompanied Patient To Recovery: Yes Disposition: Recovery Room
--- NOTE | 2024-01-04 18:18 | Hospitalist Progress Note ---
Date of Service January 04, 2024 Assessment & Plan (1) Foot abscess, right: (2) Failure of outpatient treatment: (3) Hyperlipidemia: (4) Restless leg syndrome: (5) Obesity: Plan Per previous providers notes with addendum: 53-year-old male with past medical history significant for metabolic syndrome, obesity, restless leg syndrome, Charcot joint right ankle and foot, lumbar spine pain, polyneuropathy, tobacco use presents with right foot infection. Patient went to podiatry last week and was told he has infection in the right foot on the plantar aspect. He was prescribed Keflex. But the infection seem to spreading it has come up to the upper foot which concerned him and came to the ER today. Denies any pain in the foot. Able to ambulate okay. Denies any fevers. Hemodynamics are okay. States once in a while gets headaches because of his work stress. Denies any dizziness. No blurred visions. No runny nose or sore throat. No cough. Appetite is okay. No chest pain or shortness of breath. No nausea. No abdominal pain. Normal bowel and bladder movements. Denies blood in stool or black stools. Denies any hematuria. Right foot abscess Failed outpatient treatment Keflex Follows with [facility] previously saw blueprinting machine operator Dr. Fletcher, states he had a prior procedure with them IV Vanco and Zosyn --CT Right foot Erosive/destructive change is seen involving the fifth metatarsal head/neck with presumed pathologic fracture. This is highly suspicious for osteomyelitis. 2. There is surrounding inflammation with a multiloculated fluid collection extending from the dorsum of the foot to the plantar aspect of the foot at this site. This is consistent with abscess. S/P I and D of R dorsal foot abscess and bone biopsy, per prelim report NO osteomyelitis noted will await blood culture and operative culture infectious disease consulted for antibiotic recs 5/2 Patient stable overall ID recommending 6 weeks of IV Unasyn Case management making arrangements Hyperinsulinemia No true previous dx of T2DM, A1C have all been under < 5.7 his insulin levels have been high and he has metabolic syndrome PCP has pt on metformin and wegovy He has lost weight thus far a1c 5.2, no indication for accu checks or insulin so will discontinue Anemia hgb 12.3, 13.6 on admission, likely dilutional component iron, ferritin, b12, folate adequate possibly in setting of infection Obesity, BMI 36.0 On wegovy Follow-up with nutrition Sleep apnea Not able to tolerate CPAP Restless leg syndrome Continue ropinirole Tobacco abuse Needs counseling he is working on quitting Hx of alcoholism quit after accident several years ago DVT prophylaxis SCDs, pt is ambulating Disposition: Discharge to home once home IV antibiotics arranged Admission and Anticipated Discharge Date Admission Date: January 01, 2024 Subjective Follow-up for right foot abscess, status post I&D, osteomyelitis, etc. Seen resting in bed, sitting up, watching TV, States he feels fine overall Minimal discomfort over the foot Ambulating with no problems no chest pain, dyspnea, palpitations, dizziness No other new symptoms Review of Systems Review of Systems: all noted and negative except for above Physical Exam Physical Exam: General- oriented x 3, not in distress, speaks in sentences with no effort or accessory muscle use Eyes- anicteric Neck- no JVD Lungs- clear breath sounds bilaterally, no rales/wheezes Heart- normal rate, regular rhythm; no murmurs Abdomen- normal bowel sounds, nondistended, soft, nontender Extremities-right foot:-Dressing in place No bleeding or discharge No pretibial edema, no calf tenderness Neuro- alert, oriented x 3; no gross focal neurologic deficits Skin- warm & dry Results & Data Results & Data Vital Signs (Past 12 Hours) Vital Signs Temp Pulse Resp BP Pulse Ox O2 Del Method 01/04/24 07:30 36.4 C L 71 16 134/82 94 Room Air all noted and reviewed including below
[2024-01-04] MEDS: ENOXAPARIN INJ 40 MG/0.4 ML SYR SQ SCH (20:23)
[2024-01-05 08:15] LABS: Creatinine Clr Calc Pharmacy 170.4 ml/min; Est GFR (African American) 121.4 ml/min; Est GFR (Non-African American) 104.7 ml/min
--- NOTE | 2024-01-05 19:48 | Discharge Summary ---
Discharge Summary Date of Service January 05, 2024 delayed entry date of service noted above Notes For Next Care Provider Medication Changes From Visit IV Unasyn-intravenous antibiotic for treatment of right foot abscess and osteomyelitis Admission HPI Per Admitting Provider 53-year-old male with past medical history significant for diabetes, metabolic syndrome, obesity, restless leg syndrome, Charcot joint right ankle and foot, lumbar spine pain, polyneuropathy, tobacco use presents with right foot infection. Patient went to podiatry last week and was told he has infection in the right foot on the plantar aspect. He was prescribed Keflex. But the infection seem to spreading it has come up to the upper foot which concerned him and came to the ER today. Denies any pain in the foot. Able to ambulate okay. Denies any fevers. Hemodynamics are okay. States once in a while gets headaches because of his work stress. Denies any dizziness. No blurred visions. No runny nose or sore throat. No cough. Appetite is okay. No chest pain or shortness of breath. No nausea. No abdominal pain. Normal bowel and bladder movements. Denies blood in stool or black stools. Denies any hematuria. Past ministry. As mentioned above Past surgical history. Left repair of the hip for fracture. Right total hip replacement. Social history. . Smokes half pack a day for last 30 years. Alcohol 1 or 2 times a week. No drug use. Family history. Father had non-Hodgkin's lymphoma. Diabetes in the family. Admission Exam Per Admitting Provider General- Not in distress. Head- atraumatic Eyes- PERRL. ENT- oropharynx clear Neck- supple, no JVD. Lungs- clear to auscultation no wheezing or crackles. Heart- regular rhythm; no murmur, no gallop. Abdomen- normal bowel sounds, soft, nontender, no distension. Extremities- Right foot abscess on lateral aspect extending from dorsal to plantar aspect. Neuro- alert, oriented PERRL, no facial palsy; no dysarthria; moves extremities. Principal Dx & Hospital Course #1 = Principal Diagnosis (1) Foot abscess, right: (2) Failure of outpatient treatment: (3) Hyperlipidemia: (4) Restless leg syndrome: (5) Obesity: Plan Per previous providers notes with addendum: 53-year-old male with past medical history significant for metabolic syndrome, obesity, restless leg syndrome, Charcot joint right ankle and foot, lumbar spine pain, polyneuropathy, tobacco use presents with right foot infection. Patient went to podiatry last week and was told he has infection in the right foot on the plantar aspect. He was prescribed Keflex. But the infection seem to spreading it has come up to the upper foot which concerned him and came to the ER today. Denies any pain in the foot. Able to ambulate okay. Denies any fevers. Hemodynamics are okay. States once in a while gets headaches because of his work stress. Denies any dizziness. No blurred visions. No runny nose or sore throat. No cough. Appetite is okay. No chest pain or shortness of breath. No nausea. No abdominal pain. Normal bowel and bladder movements. Denies blood in stool or black stools. Denies any hematuria. Right foot abscess Failed outpatient treatment Keflex Follows with [facility] previously saw printing table worker Dr. Fletcher, states he had a prior procedure with them IV Vanco and Zosyn --CT Right foot Erosive/destructive change is seen involving the fifth metatarsal head/neck with presumed pathologic fracture. This is highly suspicious for osteomyelitis. 2. There is surrounding inflammation with a multiloculated fluid collection extending from the dorsum of the foot to the plantar aspect of the foot at this site. This is consistent with abscess. S/P I and D of R dorsal foot abscess and bone biopsy, per prelim report NO osteomyelitis noted infectious disease consulted for antibiotic recs Blood culture: Negative Wound culture: [place], no sensitivities to follow 01/04 Patient stable overall ID recommending 6 weeks of IV Unasyn - plan to treat for a total 6 weeks from 01/01 through 02/12 - obtain a CBC and CMP weekly, CRP Q2 weekly arrangements made for home IV ABx ff up with Wash Rack Operator in 1 week Hyperinsulinemia No true previous dx of T2DM, A1C have all been under < 5.7 his insulin levels have been high and he has metabolic syndrome PCP has pt on metformin and wegovy He has lost weight thus far a1c 5.2, no indication for accu checks or insulin so will discontinue Anemia hgb 12.3, 13.6 on admission, likely dilutional component iron, ferritin, b12, folate adequate possibly in setting of infection Obesity, BMI 36.0 On wegovy Follow-up with nutrition Sleep apnea Not able to tolerate CPAP Restless leg syndrome Continue ropinirole Tobacco abuse Needs counseling he is working on quitting Hx of alcoholism quit after accident several years ago DVT prophylaxis SCDs, pt is ambulating Disposition: Discharge to home with home IV antibiotics, Podiatry ff up in 1 week Discharge Exam General- oriented x 3, not in distress, speaks in sentences with no effort or accessory muscle use Eyes- anicteric Neck- no JVD Lungs- clear breath sounds bilaterally, no rales/wheezes Heart- normal rate, regular rhythm; no murmurs Abdomen- normal bowel sounds, nondistended, soft, nontender Extremities- no pretibial edema, no calf tenderness R foot: heavy dressing in place, no bleeding or discharge Neuro- alert, oriented x 3; no gross focal neurologic deficits Skin- warm & dry Updated Medication List Medication Instructions Recorded Confirmed Type baclofen 20 mg tablet 20 mg PO BID 01/01/24 01/01/24 History furosemide 20 mg tablet 20 mg PO DAILY 01/01/24 01/01/24 History metformin 500 mg tablet,extended 1,000 mg PO BID 01/01/24 01/01/24 History release 24 hr ropinirole 1 mg tablet 1 mg PO BID 01/01/24 01/01/24 History semaglutide (weight loss) 2.4 2.4 mg subcut WK 01/01/24 01/01/24 History mg/0.75 mL subcutaneous pen injector (Wegovy) L.acidop,casei,lactis,rham-B.lact,sindi 1 cap PO DAILY 40 days #40 caps 01/05/24 Rx 625 mg (10 billion cell) capsule (Advanced Probiotic) ampicillin-sulbactam 3 gram 3 g IV Q6H 40 days #160 ea 01/05/24 Rx solution for injection (Unasyn) Hospital Stay Data Consultations 01/01/24 19:34 ED Decision to Admit Stat 01/02/24 10:13 Consult Podiatry Routine 01/03/24 07:25 Consult Infectious Diseases Routine Procedures Performed Operation Date: 01/02/24 08:50 Actual Procedures p Right Foot Incision and Drainage(Right) - Vladimir Hager DPM Diagnostic Imagining Performed Laboratory Results WBC 4.97 K/ul (4.8-10.8) 01/04/24 09: RBC 4.53 M/uL (4.70-6.10) L 01/04/24 09:25 Hgb 13.7 g/dl (14.0-18.0) L 01/04/24 09:25 Hct 40.4 % (42.0-52.0) L 01/04/24 09:25 MCV 89.2 fL (80.0-100.0) 01/04/24 09: MCH 30.2 pg (25.0-34.0) 01/04/24 09: MCHC 33.9 g/dL (32.0-36.0) 01/04/24 09: RDW Std Deviation 39.8 fL (36.4-46.3) 01/04/24: RDW Coeff of Kenny 12.2 % (11.5-14.5) 01/04/24: Plt Count 240 K/uL (130-400) 01/04/24 09: MPV 9.2 fL (9.4-12.4) L 01/04/24 09:25 Immature Gran % (Auto) 0.2 % 01/04/24 09: Neut % (Auto) 55.6 % 01/04/24 09: Lymph % (Auto) 31.8 % 01/04/24 09:25 Cocke % (Auto) 8.0 % 01/04/24 09:25 Eos % (Auto) 4.0 % 01/04/24 09:25 Baso % (Auto) 0.4 % 01/04/24 09:25 Neut # (Auto) 2.76 K/uL (1.40-6.50) 01/04/24 09:25 Lymph # (Auto) 1.58 K/uL (1.20-3.40) 01/04/24 09:25 Cocke # (Auto) 0.40 K/uL (0.11-0.59) 01/04/24 09: Eos # (Auto) 0.20 K/uL (0.00-0.50) 01/04/24 09:25 Baso # (Auto) 0.02 K/uL (0.00-0.20) 01/04/24 09:25 Immature Gran # (Auto) 0.01 K/uL (0.01-0.20) 01/04/24 09:25 ESR 36 mm/hr (0-20) H 01/03/24 03:18 Sodium 140 mmol/L (136-145) 01/04/24 09:25 Potassium 3.7 mmol/L (3.5-5.1) 01/04/24 09:25 Chloride 105 mmol/L (98-107) 01/04/24 09:25 Carbon Dioxide 27 mmol/L (21-32) 01/04/24 09:25 Anion Gap 8 (3-11) 01/04/24 09:25 BUN 9 mg/dl (6-23) 01/04/24 09:25 Creatinine 0.75 mg/dl (0.6-1.4) 01/05/24 07:33 Est Cr Clr Drug Dosing 170.4 ml/min 01/05/24 07:33 Est GFR ( Amer) 121.4 ml/min 01/05/24 07:33 Est GFR (Non-Af Amer) 104.7 ml/min 01/05/24 07:33 BUN/Creatinine Ratio 10.2 (10-20) 01/04/24 09:25 Glucose 113 mg/dl (70-99(Fasting)) H 01/04/24 09:25 POC Glucose 95 mg/dl (70-99) 01/02/24 11:59 Estimat Average Glucose 103 mg/dl 01/02/24 05:26 Hemoglobin A1c 5.2 % (4.5-5.6) 01/02/24 05:26 Lactate 0.9 mmol/L (0.4-2.0) 01/01/24 17:00 Calcium 9.1 mg/dl (8.6-10.3) 01/04/24 09:25 Phosphorus 2.9 mg/dl (2.5-4.9) 01/04/24 09:25 Magnesium 1.9 mg/dl (1.7-2.4) 01/04/24 09:25 Iron 48 mcg/dl (35-175) 01/03/24 03:18 Transferrin 180 mg/dl (200-360) L 01/03/24 03:18 Ferritin 319.8 ng/ml (8-388) 01/03/24 03:18 Total Bilirubin 0.4 mg/dl (0.2-1.0) 01/04/24 09:25 AST 15 U/L (13-39) 01/04/24 09:25 ALT 23 U/L (7-52) 01/04/24 09:25 Alkaline Phosphatase 68 U/L (34-104) 01/04/24 09:25 C-Reactive Protein 3.31 mg/dl (0-0.5) H 01/03/24 03:18 Total Protein 7.0 gm/dl (6.0-8.3) 01/04/24 09:25 Albumin 3.7 gm/dl (3.4-5.0) 01/04/24 09:25 Globulin 3.3 gm/dl (2.5-4.0) 01/04/24 09:25 Albumin/Globulin Ratio 1.1 (0.9-2) 01/04/24 09:25 Vitamin B12 226 pg/ml (180-914) 01/03/24 03:18 Folate 18.49 ng/ml (>5.38) 01/03/24 03:18 Random Vancomycin 9.8 mcg/ml (10-20) L 01/03/24 03:[address] 01/01/24 16:43 CT SCAN OF THE RIGHT FOOT WITH IV CONTRAST CLINICAL HISTORY: Right foot infection. COMPARISON STUDY: Radiographs of the right foot dated 06/12/2021. CT scan of the right foot dated 07/02/2019. TECHNIQUE: CT scan of the right foot is performed from the distal tibia and fibular to the base of the foot. Images are reviewed in the axial, sagittal, and coronal planes. IV contrast was administered without complication. A dose lowering technique was utilized adhering to the principles of ALARA. Note that interpretation is significant with suboptimal without current plain film correlate. CT DOSE: 415.95 mGy.cm FINDINGS: The skeletal structures are osteopenic. There is erosive/destructive change involving the fifth metatarsal head/neck with presumed pathologic fracture. There is significant surrounding soft tissue edema and inflammation. A multiloculated fluid collection extending from the dorsum of the foot to the plantar aspect of the foot at this site around the fifth MTP is seen on sagittal image #11. This measures 5.4 x 2.5 x 2.0 cm in aggregate dimension. There is chronic deformity seen involving the second through fourth metatarsal necks. Severe degenerative change and erosion is again noted at the first metatarsophalangeal joint. Faopuaag-oq-cyfxax osteoarthritic change is noted in the midfoot. Milder soft tissue edema is seen throughout the remainder of the foot. The ankle mortise is maintained. There is generalized atrophy of the regional musculature. The Achilles tendon is intact as visualized. IMPRESSION: 1. Erosive/destructive change is seen involving the fifth metatarsal head/neck with presumed pathologic fracture. This is highly suspicious for osteomyelitis. 2. There is surrounding inflammation with a multiloculated fluid collection extending from the dorsum of the foot to the plantar aspect of the foot at this site. This is consistent with abscess. 3. No additional foci of osteomyelitis are suspected. 4. Additional foci of chronic/degenerative change throughout the foot as above. ACT 112: Negative or not required by law. Dictated: 01/01/2024 6:40 PM Transcribed: 01/01/2024 7:14 PM Manoj [id number] [email or web address] Electronically signed by: Ender Leon M.D. 01/01/2024 7:15 PM Pending Results Patient Have Any Pending Studies at Discharge: Yes Discharge Instructions Given to Patient (Per Discharging Provider) PLEASE REFER TO YOUR NEW MEDICATION LIST AND FOLLOW INSTRUCTIONS CAREFULLY. YOUR NEW MEDICATIONS INCLUDE: IV Unasyn-intravenous antibiotic for treatment of right foot abscess and osteomyelitis You need to have weekly blood work during the entire duration of your antibiotic course. Please take a probiotic daily during the entire duration of your antibiotic course and at least 2 weeks after. If you experience diarrhea, call your primary care physician immediately to be checked for C. difficile colitis. Drink plenty of fluids. PLEASE CALL YOUR PRIMARY CARE PHYSICIAN OR RETURN TO THE ER IF WITH WORSENING OF SYMPTOMS, INCLUDING Right foot pain, swelling, redness, tenderness, bleeding or discharge, Diarrhea, etc. FOLLOW UP WITH PRIMARY CARE PHYSICIAN OUTLINED ABOVE. FOLLOW-UP WITH CONTRACT SPECIALIST DR. HAGER IN 1 WEEK. Take care. Total Time Total Time Spent Total Time Spent (In Minutes): 35 minutes
--- NOTE | 2024-01-17 21:57 | Operative Report ---
Post Operative Report Pre & Post Diagnosis Operation Date: 01/02/24 08:50 Pre-Op Diagnosis: Right Foot Abscess and Osteomyelitis Post-Op Diagnosis: Right Foot Abscess and Osteomyelitis I identified the patient and participated in the time-out.: Yes Procedure Operation Date: 01/02/24 08:50 Actual Procedures p Right Foot Incision and Drainage(Right) - Vladimir Hager DPM Surgeon Vladimir Hager DPM Director Strategic Account Management None Estimated Blood Loss 5 Findings Consistent with Post-Op Diagnosis plantar ulcerated callus does probe directly to the dorsal ulceration. This entire space was filled with significant purulent drainage but was able to be expressed and flushed completely. All necrotic nonviable tissue was able to be excised and primary closure was performed dorsally with only a small remaining ulcer noted plantarly. No extension to the bone was noted surgically. Specimens significant deep cultures were obtained. No bone cultures were obtained because the bone was not exposed at the surgical site. Anesthesia Type MAC Complications none Disposition Accompanied Patient To Recovery: Yes Disposition: Recovery Room Indications this patient is a recent hospital consult of ours who presented to the emergency department with worsening infection to the rightt foot. He has a long history of ulcer underlying the fifth metatarsal head due to prior Charcot neuroarthropathy. He denies any history of diabetes but has had this long- standing neuropathic collapse of his foot. Now, he recently saw his outpatient emotionally impaired teacher who shaved the callus down and since that time he has noticed this worsening infection develop. A CT scan revealed extensive erosions and proliferations too the fifth metatarsal head, consistent with underlying osteomyelitis. This is complicated by the fact that he states he has had a surgical arthrodesis or fusion of the Raymundo metatarsal phalangeal joint. There is not a procedure we see often in its entirely possible that the changes to the fifth metatarsal head were postsurgical rather than infectious. Either way, based on him having no history of prior bone infection here, we elected for an incision and drainage rather than a partial fifth ray resection. We did discuss that he may still require further surgical intervention, as 1 of the larger risks is failure of IV antibiotic treatment for the suspected osteomyelitis. Preoperative instructions, postoperative instructions, relative risks, and outcomes were all discussed at length. Consent was obtained for this incision and drainage. Description of Procedure patient was brought to the operating room and placed on the operating table in supine position. Following initiation of IV sedation, local analgesia was obtained utilizing 20 cc of half percent Marcaine in 1/5 ray block. The foot was scrubbed prepped and draped in the usual aseptic manner. No tourniquet was utilized given the potential for infection and vascular disease. Attention was directed to the fifth metatarsal phalangeal joint where a ulceration at the fifth metatarsal head was noted. The ulceration was sharply incised utilizing a 15 blade and immediate purulent drainage was noted. 2 converging semielliptical incisions were made surrounding the ulceration and the ulcer was excised in toto. All purulent drainage was expressed and the incision was flushed with copious amounts of sterile saline. Yard Coordinator samples of soft tissue were sent for culture and sensitivity testing. further flushing was performed to ensure no clinical remnants of infectious tissue were remaining. Because clean margins were able to be obtained, the dorsal ulceration was closed primarily with 2-0 nylon. The incision was dressed with Xeroform gauze, 4 x 4 gauze, Kerlix, and Shar wrap. The patient tolerated the prrocedure well and was transferred to the recovery with vital signs stable and vascular status intact to the feet. Following postoperative monitoring, the patient will be given prescriptions and instructions and transferred back to the floor for further evaluation. I attest to the content of the Intraoperative Record and any orders documented therein. Any exceptions are noted below.
== END 2024-01-05 11:52 | disposition home health service (06) | DRG 571 ==
LOC: ED 15:43 → 3N 20:40 → SUATTDRO 20:40 → 3N 21:51